=== PATIENT | female | born 1945 | race Caucasian/White ===

== ENCOUNTER 2016-08-27 08:43 | Outpatient (CLI) | payer MEDICARE, BC | END 2016-08-27 08:44 | disposition home or self-care (01) | LOC: LAB.N 08:43 | PROVIDERS: ATTEND Orthopaedic Surgery | DX: Z53.9 Procedure and treatment not carried out, unspecified reason (principal) | CPT/HCPCS: 36415; 82565; 84520; 85049; 85610; 85730 ==

== ENCOUNTER 2016-10-27 14:38 | Outpatient (CLI) | payer MEDICARE, BC | END 2016-10-27 14:39 | disposition home or self-care (01) | DX: R60.0 Localized edema (principal); I87.1 Compression of vein ==

== ENCOUNTER 2016-11-04 13:01 | Outpatient (CLI) | payer MEDICARE, BC ==
--- NOTE | 2016-11-04 16:15 | Ultrasound Report ---
RIGHT LEG VENOUS DUPLEX: 11/04/2016 CLINICAL INDICATION: Edema, dyspnea. TECHNIQUE: Real-time sonographic vascular imaging was performed by the ring sewer through the right lower extremity utilizing both color flow and Doppler spectral analysis. Multiple corporate sales representative stat ic images were saved for review. FINDINGS: A right lower extremity venous sonogram is performed revealing the common femoral, superfic ial femoral, profunda femoris, and popliteal veins to be adequately visualized without intraluminal d efects. There is normal venous compression, augmentation, phasicity, and spontaneity of venous flow. In the calf, the visualized more cephalad portions of posterior tibial and peroneal veins are grossly compressible, without filling defects. IMPRESSION: NO EVIDENCE OF DEEP VENOUS THROMBOSIS. JOB #: [id number] EXT JOB #:[id number]
== END 2016-11-04 13:02 | disposition home or self-care (01) ==
LOC: DI 13:01
PROVIDERS: ATTEND Internal Medicine
DX: R60.0 Localized edema (principal)

== ENCOUNTER 2017-02-03 16:21 | Emergency (ER) | payer MEDICARE, BC ==
[2017-02-03 16:44] VITALS: BP 103/61
--- NOTE | 2017-02-03 18:09 | ED Physician Documentation ---
PD HPI LOWER EXT INJURY - Stated complaint Stated Complaint: L KNEE PX - Chief complaint Chief Complaint: Ext Problem - History obtained from History obtained from: Patient - History of Present Illness PD HPI LOW EXT INJURY LOCATION: Other (72-year-old woman with history of right total knee replacement, 3 days ago got up from a chair and felt a pop in the medial knee and has had a lot of pain ever since which is incompletely relieved by hydrocodone, although she says later that she does not want anything stronger for pain "I would not take anything stronger for pain.") Review of Systems Constitutional: denies: Fever, Chills Skin: reports: Reviewed and negative Musculoskeletal: denies: Neck pain, Back pain PD PAST MEDICAL HISTORY - Past Medical History Cardiovascular: Hypertension, Other Respiratory: Sleep apnea, CPAP use Endocrine/Autoimmune: None GI: GERD, Hiatal hernia Psych: Depression Musculoskeletal: Osteoarthritis, Chronic back pain - Past Surgical History Past Surgical History: Yes General: Cholecystectomy, Other 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 Cardiovascular: Pacemaker - Present Medications Home Medications: Ambulatory Orders Medication Instructions Recorded Confirmed Ascorbic Acid [Vitamin C] 500 mg PO BID 11/13/12 12/16/16 Celecoxib [Celebrex] 200 mg PO DAILY 11/13/12 12/16/16 Escitalopram Oxalate [Lexapro] 20 mg PO DAILY 11/13/12 12/16/16 Lansoprazole [Prevacid] 30 mg PO BID 11/13/12 12/16/16 Losartan [Cozaar] 100 mg PO DAILY 11/13/12 12/16/16 Metoprolol Succinate [Toprol Xl] 200 mg PO DAILY 11/13/12 12/16/16 Nitroglycerin [Nitrostat] 0.3 mg SL DAILY PRN 11/13/12 12/16/16 Potassium 1,000 mg PO DAILY 11/13/12 12/16/16 Spironolactone [Aldactone] 25 mg PO DAILY 11/13/12 12/16/16 Hydroxyzine Pamoate 50 mg PO 3-4XD PRN 01/16/13 12/16/16 Mag Carb/Al Hydrox/Alginic AC 3 tbs PO DAILY PRN 01/16/13 12/16/16 [Gaviscon Extra Strength Liq] Bupropion HCl [Wellbutrin] 300 mg DAILY 01/13/14 12/16/16 Aspirin [Ecotrin] 81 mg PO DAILY 02/14/14 12/16/16 Lidocaine [Lidoderm] 1 patch TOP Q12H PRN 02/14/14 12/16/16 HYDROcodone/ACET 10/325 [[place] 10 1 - 1.5 tab PO DAILY PRN 10/31/14 12/16/16 mg/325 mg] Estradiol/Levonorgestrel [Climara 1 each TD Q7D 02/06/15 12/16/16 Pro Patch] Trazodone HCl 100 mg PO DAILY 05/08/15 12/16/16 Fexofenadine HCl [Marcella Allergy] 180 mg PO DAILY 11/06/15 12/16/16 Calcium Polycarbophil [Fiber-Caps] 1,000 mg PO BID 09/16/16 12/16/16 Ferrous Sulfate [Slow Fe] 65 mg PO DAILY 09/16/16 12/16/16 - Allergies Allergies/Adverse Reactions: Allergies Allergy/AdvReac Type Severity Reaction Status Date / Time adhesive Allergy Rash Verified 02/25/13 13:33 glycerin Allergy Itching Verified 02/25/13 13:33 - Social History Does the pt smoke?: No Smoking Status: Never smoker Does the pt drink ETOH?: No Does the pt have substance abuse?: No - Immunizations Immunizations are current?: Yes - POLST Patient has POLST: No PD ED PE NORMAL - Vitals Vital signs reviewed: Yes - General General: Alert and oriented X 3, No acute distress - Back Back: No spinal TTP - Extremities Extremities: Other (Right knee is tender over the medial joint line without deformity or warmth. She has no pain with grind testing. She does not tolerate ligamentous testing though.) - Neuro Neuro: Alert and oriented X 3, Normal speech Results - Vitals Vitals: Vital Signs - 24 hr 02/03/17 16:27 Temperature 36.6 C Heart Rate 63 Respiratory 18 Rate Blood Pressure 103/61 O2 Saturation 95 Oxygen O2 Source Room air - Rads (name of study) <L knee 4v Radiology: EMP read contemporaneously (REBECAD no frx) Departure - Departure Disposition: 01 Home, Self Care Clinical Impression: Internal derangement of left knee Condition: Good Record reviewed to determine appropriate education?: Yes Comments: Xray without fracture so safe to walk until MRi on Wednesday
--- NOTE | 2017-02-03 19:00 | XRAY Preliminary Report ---
Exam: XR Knee 4 View LT IMPRESSION: Degenerative disease of the medial compartments without fracture or joint effusion. [facility] SITE ID: [id number]
--- NOTE | 2017-02-03 19:02 | XRAY Report ---
EXAM: LEFT KNEE RADIOGRAPHY EXAM DATE: 02/03/2017 06:33 PM. CLINICAL HISTORY: Knee pain. COMPARISON: None. TECHNIQUE: 4 views. FINDINGS: Bones: No fracture or destructive bony abnormality. There is mild spurring of the medial compartment of the knee. Joints: There is mild to moderate medial compartment joint space narrowing. No joint effusion. Soft Tissues: Normal. No soft tissue swelling. IMPRESSION: Degenerative disease of the medial compartments without fracture or joint effusion. [facility] Referring Provider Line: [phone] SITE ID: [id number]
== END 2017-02-03 19:33 | disposition home or self-care (01) ==
LOC: ED 16:21
DX: S89.82XA Other specified injuries of left lower leg, initial encounter (principal); X58.XXXA Exposure to other specified factors, initial encounter; M17.12 Unilateral primary osteoarthritis, left knee; Z96.651 Presence of right artificial knee joint; Z95.0 Presence of cardiac pacemaker; I10 Essential (primary) hypertension; G47.30 Sleep apnea, unspecified; K21.9 Gastro-esophageal reflux disease without esophagitis; M19.90 Unspecified osteoarthritis, unspecified site
CPT/HCPCS: 99283

== ENCOUNTER 2017-02-06 12:59 | Outpatient (CLI) | payer MEDICARE, BC ==
--- NOTE | 2017-02-06 17:00 | MRI Report ---
EXAM: LEFT KNEE MRI WITHOUT CONTRAST EXAM DATE: 02/06/2017 02:26 p.m. CLINICAL HISTORY: Left knee pain. Prior history of leukemia. COMPARISON: Left knee radiography from 02/03/2017. TECHNIQUE: Multiplanar, multisequence T1-weighted and fluid-sensitive sequences of the knee without c ontrast. Other: None. FINDINGS: The image quality is slightly degraded due to patient-related imaging characteristics. Bones and articular cartilage: Osteophytes at the femoral condyles, tibial plateau, and patella. Grad e 3-4 chondromalacia at the medial compartment and lateral compartment. Grade 4 chondromalacia and mi ld subcortical marrow edema at the medial patellar facet. Subcortical cysts and grade 4 chondromalaci a at the medial trochlear facet. Grade 3-4 chondromalacia at the femoral trochlear groove. Medial Meniscus: Horizontal flap tear at the posterior horn. A small portion of the posterior horn is flipped inferomedially within the medial tibial recess (coronal images 18 and 19). There is also a r adial tear or degenerative free edge fraying at the midportion of the posterior horn. Lateral Meniscus: There is a radial tear at the anterior horn. There is degenerative free edge frayin g at the entire lateral meniscus. Cruciate Ligaments: The anterior and posterior cruciate ligaments are intact. Collateral Ligaments: The medial collateral and lateral collateral ligamentous structures are intact. Tendons: The quadriceps, patellar, semimembranosus, and popliteus tendons are unremarkable. Musculature: No edema or fatty atrophy. Other: There is a small joint effusion. No popliteal cyst. There is an approximately 6 x 9 x 5 mm loo se body within the posterolateral aspect of the medial joint compartment (coronal image 22, sagittal image 16, and axial image 14). The medial and lateral retinacula are intact. Subcutaneous edema at t he anterior aspect of the knee. IMPRESSION: 1. Tricompartmental osteoarthritis. 2. Horizontal flap tear at the posterior horn medial meniscus. Radial tear or degenerative free edge fraying at the midportion of the posterior horn. 3. Radial tear at the anterior horn lateral meniscus. Degenerative free edge fraying at the entire la teral meniscus. 4. Small joint effusion. 5. A 6 x 9 x 5 mm loose body within the posterolateral aspect of the medial joint compartment. [facility] MUSCULOSKELETAL RADIOLOGY SECTION Referring Provider Line: [phone] SITE ID: [id number]
== END 2017-02-06 13:00 | disposition home or self-care (01) ==
LOC: DI 12:59
PROVIDERS: ATTEND Internal Medicine
DX: M25.562 Pain in left knee (principal); M17.12 Unilateral primary osteoarthritis, left knee; S83.242A Other tear of medial meniscus, current injury, left knee, initial encounter; S83.282A Other tear of lateral meniscus, current injury, left knee, initial encounter; M25.462 Effusion, left knee

== ENCOUNTER 2017-05-28 11:03 | Outpatient (CLI) | payer MEDICARE, BC ==
[2017-05-28 11:21] LABS: CREATININE 0.8 mg/dL (0.4-1.0)
[2017-05-28] MEDS ORDERED: IOPAMIDOL-300 100 ML VIAL ONE (11:37)
[2017-05-28] MEDS ORDERED: IOPAMIDOL-300 50 ML VIAL ONE (11:37)
[2017-05-28] MEDS ORDERED: IOPAMIDOL-300 50 ML VIAL PO ONE (11:47)
[2017-05-28] MEDS ORDERED: IOPAMIDOL-300 100 ML VIAL IVP ONE (12:59)
--- NOTE | 2017-05-28 19:54 | CT Report ---
ABDOMEN AND PELVIS CT: 05/28/2017 COMPARISON EXAM: Chest CT 06/28/2014. INDICATION: Anemia and history of lymphoma. TECHNIQUE: Axial imaging of the abdomen and pelvis was performed with intravenous and oral contrast, 100 mL Isovue-300. In accordance with CT protocol optimization, one or more of the following dose reduction techniques w ere utilized for this exam: automated exposure control, adjustment of mA and/or KV based on patient size, or use of iterative reconstructive technique. FINDINGS: Limited evaluation of the lung bases is grossly unremarkable. Cholecystectomy is noted. The liver, spleen, pancreas, adrenal glands, and kidneys appear unremarkable. Hysterectomy is noted. Anterior abdominal scar. There are colon diverticula without evidence of diverticulitis. No free air or free fluid is seen in the abdomen or pelvis. No bulky adenopathy. Bilateral fat-containing inguinal hernias are noted. Lumbar hardware is noted. There are right rib fractures that appear time indeterminate. IMPRESSION: NO EVIDENCE OF MASS OR ADENOPATHY IN THE FIELD OF VIEW. RIGHT RIB FRACTURES APPEAR TIME INDETERMINATE. CORRELATE CLINICALLY. JOB #: [id number] EXT JOB #:[id number]
== END 2017-05-28 11:04 | disposition home or self-care (01) ==
LOC: LAB 11:03
PROVIDERS: ATTEND Surgery
DX: D64.9 Anemia, unspecified (principal); C85.90 Non-Hodgkin lymphoma, unspecified, unspecified site
CPT/HCPCS: 36415; 74177; 82565; Q9967

== ENCOUNTER 2017-08-03 08:00 | Outpatient (CLI) | payer MEDICARE, BC ==
[2017-08-03 19:00] LABS: BASOPHILS % (AUTO) 0.6 %; EOSINOPHILS # (AUTO) 0.3 10^3/uL (0.0-0.7); EOSINOPHILS % (AUTO) 4.2 %; HGB - HEMOGLOBIN 10.5 g/dL (12.0-16.0); LYMPHOCYTES # (AUTO) 1.4 10^3/uL (1.5-3.5); LYMPHOCYTES % (AUTO) 21.7 %; MEAN CORPUSCULAR HEMOGLOBIN 22.2 pg (27.0-31.0); MEAN CORPUSCULAR HGB CONC 30.4 g/dL (32.0-36.0); MEAN CORPUSCULAR VOLUME 73.1 fL (81.0-99.0); MEAN PLATELET VOLUME 7.6 fL (7.9-10.8); MONOCYTES # (AUTO) 0.7 10^3/uL (0.0-1.0); MONOCYTES % (AUTO) 10.5 %; NEUTROPHILS # (AUTO) 4.2 10^3/uL (1.5-6.6); PLT - PLATELET COUNT 320 10^3/uL (130-450); RED BLOOD COUNT 4.75 10^6/uL (4.20-5.40); RED CELL DISTRIBUTION WIDTH 19.1 % (12.0-15.0); WHITE BLOOD COUNT 6.7 x10^3/uL (4.8-10.8)
[2017-08-03 19:26] LABS: ALBUMIN 3.7 g/dL (3.2-5.5); ALBUMIN/GLOBULIN RATIO 1.1 (1.0-2.2); BILIRUBIN,TOTAL 0.5 mg/dL (0.2-1.0)
[2017-08-04 13:27] LABS: HEPATITIS C ANTIBODY NON-REACTIVE (NON-REACTIVE)
== END 2017-08-03 08:01 | disposition home or self-care (01) ==
LOC: LAB.N 08:00
PROVIDERS: ATTEND Internal Medicine
DX: C85.80 Other specified types of non-Hodgkin lymphoma, unspecified site (principal); I10 Essential (primary) hypertension; E66.9 Obesity, unspecified; F32.9 Major depressive disorder, single episode, unspecified; Z79.899 Other long term (current) drug therapy; Z72.89 Other problems related to lifestyle
CPT/HCPCS: 36415; 80053; 84443; 85025; 86803

== ENCOUNTER 2017-08-05 18:36 | Emergency (ER) | payer MEDICARE, BC ==
--- NOTE | 2017-08-05 20:12 | ED Physician Documentation ---
PD HPI BACK PAIN - Stated complaint Stated Complaint: BACK PX - Chief complaint Chief Complaint: Back Pain - History obtained from History obtained from: Patient - History of Present Illness Timing - onset: How many days ago (6) Timing - details: Abrupt onset, Waxing and waning Pain level max: 8 Pain level now: 4 Location: Lower, Right Quality: Pain Associated symptoms: No: Weakness, Numbness, Incontinent of urine, Unable to urinate, Incontinent of stool Improves with: Rest Worsened by: Movement (particularly with movement of RLE and, to lesser extent, movement involving lower back) Similar symptoms before: Diagnosis (chronic back pain, although this pain is not controlled by her usual PRN hydrocodone, and there is a component to the right paralumbar/parasacral region and towards the right hip which is not part of her typical chronic LBP) Recently seen: Not recently seen Review of Systems Constitutional: denies: Fever : denies: Incontinent Musculoskeletal: reports: Back pain, Pain with weight bearing. 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 Cardiovascular: Pacemaker - Present Medications Home Medications: Ambulatory Orders Medication Instructions Recorded Confirmed Celecoxib [Celebrex] 200 mg PO DAILY 11/13/12 04/28/17 Escitalopram Oxalate [Lexapro] 20 mg PO DAILY 11/13/12 04/28/17 Lansoprazole [Prevacid] 30 mg PO BID 11/13/12 04/28/17 Losartan [Cozaar] 100 mg PO DAILY 11/13/12 04/28/17 Metoprolol Succinate [Toprol Xl] 200 mg PO DAILY 11/13/12 04/28/17 Nitroglycerin [Nitrostat] 0.3 mg SL DAILY PRN 11/13/12 04/28/17 Potassium 1,000 mg PO DAILY 11/13/12 04/28/17 Spironolactone [Aldactone] 25 mg PO DAILY 11/13/12 04/28/17 Hydroxyzine Pamoate 50 mg PO 3-4XD PRN 01/16/13 04/28/17 Mag Carb/Al Hydrox/Alginic AC 3 tbs PO DAILY PRN 01/16/13 04/28/17 [Gaviscon Extra Strength Liq] Bupropion HCl [Wellbutrin] 300 mg DAILY 01/13/14 04/28/17 Aspirin [Ecotrin] 81 mg PO DAILY 02/14/14 04/28/17 Lidocaine [Lidoderm] 1 patch TOP Q12H PRN 02/14/14 04/28/17 HYDROcodone/ACET 10/325 [[place] 10 2 tab PO DAILY PRN 10/31/14 04/28/17 mg/325 mg] Trazodone HCl 100 mg PO DAILY 05/08/15 04/28/17 Fexofenadine HCl [Marcella Allergy] 180 mg PO DAILY 11/06/15 04/28/17 Calcium Polycarbophil [Fiber-Caps] 1,000 mg PO BID 09/16/16 04/28/17 Furosemide [Lasix] 40 mg PO DAILY 04/28/17 04/28/17 Furious Surfate 61 mg PO DAILY 05/25/17 Ketoconazole 15 gm TP BID 05/25/17 Lidocaine HCl [Lidocaine HCl 20 ml MM BID PRN 05/25/17 Viscous] Oxybutynin Chloride [Ditropan Xl] 10 mg PO DAILY 05/25/17 - Allergies Allergies/Adverse Reactions: Allergies Allergy/AdvReac Type Severity Reaction Status Date / Time adhesive Allergy Rash Verified 08/05/17 18:51 glycerin Allergy Itching Verified 08/05/17 18:51 - Social History Does the pt smoke?: No Smoking Status: Never smoker Does the pt drink ETOH?: No Does the pt have substance abuse?: No - Immunizations Immunizations are current?: Yes - POLST Patient has POLST: No PD ED PE NORMAL - Vitals Vital signs reviewed: Yes - General General: Alert and oriented X 3, No acute distress (NAD at rest but appears to have painful distress when standing from sitting position; she is able to stand with assistance, and can then bear weight both lower extremities without assisatnce), Well developed/nourished - Back Back: No CVA TTP, No spinal TTP - Derm Derm: Normal color, Warm and dry - Neuro Neuro: Alert and oriented X 3, No motor deficit, No sensory deficit Results - Vitals Vitals: Vital Signs - 24 hr 08/05/17 08/05/17 08/06/17 18:47 23:24 00:10 Temperature 36.0 C L Heart Rate 60 72 75 Respiratory 16 18 16 Rate Blood Pressure 104/48 L 104/55 L 103/47 L O2 Saturation 93 93 95 Oxygen O2 Source Room air - Rads (name of study) right hip xrays Radiology: Prelim report reviewed, See rad report lumbar xrays Radiology: Prelim report reviewed, See rad report CT right hip Radiology: Prelim report reviewed, See rad report PD MEDICAL DECISION MAKING - ED course Complexity details: reviewed results, re-evaluated patient, considered differential, d/w patient ED course: patient reported adequate relief of pain after 2 vicodin and 500mg naproxyn Departure - Departure Disposition: 01 Home, Self Care Clinical Impression: Back pain, Hip pain Condition: Good Instructions: ED Low Back Pain Injury Follow-Up: Raoul Cope MD [Primary Care Provider] - Discharge Date/Time: 08/06/17 00:10
[2017-08-05] MEDS ORDERED: HYDROcod/ACETAM 5/325 MG TABLET PO STA (20:25)
[2017-08-05] MEDS ORDERED: NAPROXEN 250 MG TABLET PO STA (20:25)
--- NOTE | 2017-08-05 21:42 | XRAY Report ---
EXAM: LUMBOSACRAL SPINE RADIOGRAPHY EXAM DATE: 08/05/2017 09:28 PM. CLINICAL HISTORY: Low back pain after fall. COMPARISONS: None. TECHNIQUE: 3 views. FINDINGS: Alignment: Levoscoliosis of the thoracolumbar spine Bones: Five ces-yzc-itwhher lumbar vertebral bodies are present. No fractures or bone lesions. Disks: There is right posterior fusion of L3, L4, L5 and S1 without evidence of hardware failure or l oosening. Degenerative disk disease at T12-L1, L1-L2 and L2-L3. Facets: No degenerative changes. Sacroiliac Joints: Unremarkable. Soft Tissues: Normal. The visualized bowel gas pattern is normal. IMPRESSION: 1. Posterior fusion on the right from L3-S1 without evidence of hardware failure or loosening. 2. No fracture or listhesis identified. [facility] Referring Provider Line: [phone] SITE ID: [id number]
--- NOTE | 2017-08-05 21:45 | XRAY Report ---
EXAM: RIGHT HIP AND PELVIS RADIOGRAPHY EXAM DATE: 08/05/2017 09:27 PM. HISTORY: Right low back pain/hip pain after fall. COMPARISONS: None. TECHNIQUE: 1 view of the pelvis and 1 view of the hip. FINDINGS: Bones: Normal. No fracture or bone lesion. Joints: The bilateral hip, pubis symphysis, and sacroiliac joints are preserved. Soft Tissues: Normal. No soft tissue swelling. IMPRESSION: The right femoral neck is not well-visualized on either film and a nondisplaced fracture of the right femoral neck cannot be excluded on this examination. Consider repeat imaging of the right hip in a s lightly different obliquity. [facility] Referring Provider Line: [phone] SITE ID: [id number]
--- NOTE | 2017-08-05 21:45 | XRAY Preliminary Report ---
Exam: XR HIP W/PELVIS 2-3V RT IMPRESSION: The right femoral neck is not well-visualized on either film and a nondisplaced fracture of the right femoral neck cannot be excluded on this examination. Consider repeat imaging of the right hip in a s lightly different obliquity. [facility] SITE ID: [id number]
--- NOTE | 2017-08-05 23:04 | CT Preliminary Report ---
Exam: CT LOWER EXTREMITY RIGHT W/O IMPRESSION: No acute bony abnormality. [facility] SITE ID: [id number]
--- NOTE | 2017-08-05 23:04 | CT Report ---
EXAM: RIGHT HIP CT WITHOUT CONTRAST EXAM DATE: 08/05/2017 10:40 PM. CLINICAL HISTORY: Fall, right hip pain COMPARISON: None. TECHNIQUE: Thin-section axial images were acquired of the hip without contrast. Post-processing: Raz nal and sagittal reformats. Other: None. In accordance with CT protocol optimization, one or more of the following dose reduction techniques w ere utilized for this exam: automated exposure control, adjustment of mA and/or KV based on patient s ize, or use of iterative reconstructive technique. FINDINGS: Bones: However, bones are osteopenic. This reduces exam sensitivity and specificity for detection of subtle bony lesions and/or fractures. No acute displaced fracture or definite suspicious bony lesio n. Partially visualized lower lumbar spinal fixation hardware. Joints: No dislocation. There is mild degenerative change of the right SI joint as well as the hip zhang int. Moderate to severe lower lumbar degenerative change. Soft tissues: No significant soft tissue abnormalities evident on these bone algorithm reconstructed images. Nonspecific right-sided inguinal lymph nodes, partially visualized. IMPRESSION: No acute bony abnormality. [facility] Referring Provider Line: [phone] SITE ID: [id number]
[2017-08-06 00:10] VITALS: BP 103/47
== END 2017-08-06 00:10 | disposition home or self-care (01) ==
LOC: ED 18:36
DX: M54.5 Low back pain (principal); M25.552 Pain in left hip; I10 Essential (primary) hypertension; G47.30 Sleep apnea, unspecified; K21.9 Gastro-esophageal reflux disease without esophagitis; M19.90 Unspecified osteoarthritis, unspecified site
CPT/HCPCS: 72100; 73502; 73700; 99283; A9270

== ENCOUNTER 2017-08-16 11:14 | Outpatient (CLI) | payer MEDICARE, BC ==
[2017-08-16] MEDS ORDERED: BARIUM SULFATE 397 GM ENEMA PR ONE (12:19)
[2017-08-16] MEDS ORDERED: BARIUM SULFATE 148 GM POWDER PO ONE (12:19)
--- NOTE | 2017-08-16 12:42 | XRAY Report ---
ESOPHAGRAM: 08/16/2017 CLINICAL INDICATION: Anemia, food sticking in the esophagus. FINDINGS: Esophagram was performed in the upright and prone positions. The esophagus is normal in caliber. Diffuse tertiary contractions are seen. No esophageal ulceration is appreciated. The hypopharynx appears unremarkable. There is a small sliding hiatal hernia present, which produced reflux throughout the prone portion of the examination. A 13 mm barium pill passed freely through the esophagus and into the stomach. IMPRESSION: 1. PRESBYESOPHAGUS. 2. SMALL HIATAL HERNIA, PRODUCING, REFLUX. 3. NO EVIDENCE OF ULCERATION OR FIXED ESOPHAGEAL STRICTURING. FLUOROSCOPY TIME: 1 MINUTE 22 SECONDS; 14 SPOT IMAGES OBTAINED. TD: 08/16/2017 12:41
== END 2017-08-16 11:15 | disposition home or self-care (01) ==
LOC: DI 11:14
PROVIDERS: ATTEND Internal Medicine
DX: K22.8 Other specified diseases of esophagus (principal); K44.9 Diaphragmatic hernia without obstruction or gangrene; K21.9 Gastro-esophageal reflux disease without esophagitis; D50.9 Iron deficiency anemia, unspecified
CPT/HCPCS: 74220; A9270

== ENCOUNTER 2017-11-16 15:15 | Outpatient (CLI) | payer MEDICARE, BC ==
[2017-11-16 19:16] LABS: INR 1.1 (0.8-1.2); PT - PROTHROMBIN TIME 12.8 secs (9.9-12.6)
[2017-11-16 19:31] LABS: CREATININE 0.8 mg/dL (0.4-1.0)
== END 2017-11-16 15:16 ==
LOC: LAB.N 15:15
PROVIDERS: ATTEND Orthopaedic Surgery
DX: R79.89 Other specified abnormal findings of blood chemistry (principal)
CPT/HCPCS: 36415; 82565; 84520; 85049; 85610; 85730

== ENCOUNTER 2018-08-03 15:21 | Outpatient (CLI) | payer MEDICARE, BC ==
--- NOTE | 2018-08-03 17:03 | XRAY Report ---
Reason: HEMOPTYSIS, UNSPECIFIED Procedure Date: 08/03/2018 Accession Number: [id number] / [id number] Procedure: XR - Chest 2 View X-Ray CPT Code: 64188 FULL RESULT: EXAM: CHEST RADIOGRAPHY EXAM DATE: 08/03/2018 04:06 PM. CLINICAL HISTORY: HEMOPTYSIS, UNSPECIFIED. COMPARISON: 06/28/[address] and chest x-ray 06/05/2013 TECHNIQUE: 2 views. FINDINGS: Shallow inspiratory effort. Lungs/Pleura: No focal opacities evident. No pleural effusion. No pneumothorax. Normal volumes. Mediastinum: Heart is top normal in size. Other: Extensive postsurgical changes in the spine. Surgical clips right upper quadrant. Multiple old healed right rib fractures and chronic deformity right shoulder. IMPRESSION: Negative for acute findings. If hemoptysis persists consider chest CT [facility]
== END 2018-08-03 15:22 | disposition home or self-care (01) ==
LOC: DI 15:21
PROVIDERS: ATTEND Physician Assistant Medical
DX: R04.2 Hemoptysis (principal)
CPT/HCPCS: 71046

== ENCOUNTER 2018-08-05 12:12 | Emergency (ER) | payer MEDICARE, BC ==
[2018-08-05] MEDS ORDERED: DEXAMETHASONE 10 MG/ML VIAL PO STA (13:17)
[2018-08-05] MEDS ORDERED: IPRATROPIUM/ALBUTEROL 3 ML NEB INH STA (13:17)
--- NOTE | 2018-08-05 14:50 | XRAY Report ---
Reason: dyspnea Procedure Date: 08/05/2018 Accession Number: [id number] / [id number] Procedure: XR - Chest 2 View X-Ray CPT Code: 86579 FULL RESULT: EXAM: CHEST RADIOGRAPHY EXAM DATE: 08/05/2018 02:41 PM. CLINICAL HISTORY: Dyspnea. COMPARISON: Tooth 2018 TECHNIQUE: 2 views. FINDINGS: Lungs/Pleura: No focal opacities evident. No pleural effusion. No pneumothorax. Normal volumes. Mediastinum: Heart and mediastinal contours are unremarkable. Other: Chronic right rib and shoulder deformity. Multiple surgical clips in the abdomen. Degenerative and postsurgical change in the spine. IMPRESSION: Clear lungs. No acute findings. Chronic changes as above. [facility]
--- NOTE | 2018-08-05 15:05 | ED Physician Documentation ---
PD HPI DYSPNEA - Stated complaint Stated Complaint: SOA/COUGH/SORE THROAT - Chief complaint Chief Complaint: Resp - History obtained from History obtained from: Patient - History of Present Illness Timing - onset: How many days ago (6) Timing - details: Still present Worsened by: Coughing Associated symptoms: Cough, Chest pain / discomfort (Right lower chest) Similar symptoms before: Diagnosis (History of O2-dependent COPD.) Recently seen: Clinic (Chest x-ray done 2 days ago was negative.) - Additional information Additional information: The patient is a 73-year-old female with a history of non-Hodgkin's lymphoma, left lung cancer in remission, and history of pneumonia, on supplemental oxygen at baseline, who presents with productive cough of 6 days' duration. She reports associated dyspnea and right lower chest wall pain with coughing. She denies fever, abdominal pain, nausea or vomiting. She is normally on supplemental oxygen at 2 L during the day and up to 4 L at night. Recently she has increased her daytime O2 concentration to 4 L as well. She was seen by her primary physician 2 days ago, and an outpatient chest x-ray was negative. She states that her primary physician says her lungs always sound "crappy." Review of Systems Constitutional: reports: Fatigue. denies: Fever Nose: reports: Congestion Throat: denies: Sore throat Cardiac: reports: Chest pain / pressure (Right lower chest wall.) Respiratory: reports: Dyspnea, Cough GI: denies: Abdominal Pain, Nausea, Vomiting : denies: Dysuria Skin: denies: Rash Musculoskeletal: reports: Back pain (Chronically.). denies: Extremity swelling Neurologic: reports: Generalized weakness. 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 Cardiovascular: Pacemaker - Present Medications Home Medications: Ambulatory Orders Medication Instructions Recorded Confirmed Celecoxib [Celebrex] 200 mg PO DAILY 11/13/12 02/09/18 Escitalopram Oxalate [Lexapro] 20 mg PO DAILY 11/13/12 02/09/18 Lansoprazole [Prevacid] 30 mg PO BID 11/13/12 02/09/18 Losartan [Cozaar] 100 mg PO DAILY 11/13/12 02/09/18 Metoprolol Succinate [Toprol Xl] 200 mg PO DAILY 11/13/12 02/09/18 Nitroglycerin [Nitrostat] 0.3 mg SL DAILY PRN 11/13/12 02/09/18 Potassium 1,000 mg PO DAILY 11/13/12 02/09/18 Spironolactone [Aldactone] 25 mg PO DAILY 11/13/12 02/09/18 Hydroxyzine Pamoate 50 mg PO 3-4XD PRN 01/16/13 02/09/18 Mag Carb/Al Hydrox/Alginic AC 3 tbs PO DAILY PRN 01/16/13 02/09/18 [Gaviscon Extra Strength Liq] Bupropion HCl [Wellbutrin] 300 mg DAILY 01/13/14 02/09/18 Lidocaine [Lidoderm] 1 patch TOP Q12H PRN 02/14/14 02/09/18 HYDROcodone/ACET 10/325 [[place] 10 2 tab PO DAILY PRN 10/31/14 02/09/18 mg/325 mg] Fexofenadine HCl [Amrcella Allergy] 180 mg PO DAILY 11/06/15 02/09/18 Calcium Polycarbophil [Fiber-Caps] 1,000 mg PO BID 09/16/16 02/09/18 Furosemide [Lasix] 40 mg PO DAILY 04/28/17 02/09/18 Ketoconazole 15 gm TP BID 05/25/17 02/09/18 Lidocaine HCl [Lidocaine HCl 20 ml MM BID PRN 05/25/17 02/09/18 Viscous] Oxybutynin Chloride [Ditropan Xl] 10 mg PO DAILY 05/25/17 02/09/18 Ferrous Gluconate 26 mg PO DAILY 09/01/17 02/09/18 Gabapentin 1 tab ORAL DAILY 02/09/18 02/09/18 Albuterol Sulf [Ventolin Hfa 1 - 2 puffs INH Q4HR PRN #1 inhaler 08/05/18 Inhaler] Doxycycline Monohydrate 100 mg PO BID #14 tablet 08/05/18 predniSONE [Prednisone] 40 mg PO DAILY #10 tablet 08/05/18 - Allergies Allergies/Adverse Reactions: Allergies Allergy/AdvReac Type Severity Reaction Status Date / Time adhesive Allergy Rash Verified 08/05/17 18:51 glycerin Allergy Itching Verified 08/05/18 12:30 - Social History Does the pt smoke?: No Smoking Status: Former smoker (Quit smoking in 1993.) Does the pt drink ETOH?: No Does the pt have substance abuse?: No - Immunizations Immunizations are current?: Yes - POLST Patient has POLST: No PD ED PE NORMAL - Vitals Vital signs reviewed: Yes (Low pulse oximetry of 88% on 2 L supplemental oxygen.) - General General: Alert and oriented X 3, Other (Morbidly obese, and speaks in bursts of 5 or 6 words at a time.) - HEENT HEENT: Atraumatic, Moist mucous membranes, Pharynx benign - Neck Neck: No adenopathy, No JVD - Cardiac Cardiac: RRR - Respiratory Respiratory: Other (Course breath sounds bilaterally, with expiratory wheezes and prolonged expiratory phase.) - Abdomen Abdomen: Soft, Non tender - Back Back: No CVA TTP - Derm Derm: No rash - Extremities Extremities: No calf tenderness / cord - Neuro Neuro: Alert and oriented X 3, No motor deficit, No sensory deficit Results - Vitals Vitals: Oxygen O2 Source Room air - Rads (name of study) CXR Radiology: Prelim report reviewed, EMP read contemporaneously, See rad report (Clear lungs. No acute findings. Chronic changes involving right rib and shoulder deformity.) PD MEDICAL DECISION MAKING - ED course Complexity details: reviewed old records, reviewed results, re-evaluated patient, considered differential, d/w patient ED course: The patient's presentation is most consistent with acute exacerbation of COPD, with initially low pulse oximetry. Her chest x-ray reveals chronic changes, without acute infiltrate. Her cough is productive of significant sputum, especially after nebulizer treatments. Treatment in the emergency department included administration of DuoNeb nebulizer, dexamethasone 10 mg orally, and Xopenex nebulizer. On repeat examination her lungs continued to reveal coarse breath sounds on auscultation. However she is moving air much better, and her pulse oximetry has improved to 94% on 2-1/2 L supplemental oxygen. She is being discharged with prescriptions for doxycycline, albuterol inhaler, and prednisone, 5 day course. I discussed with her the diagnosis, outpatient treatment and follow-up, as well as potentially worrisome signs or symptoms that should prompt reevaluation in the emergency department. Departure - Departure Disposition: 01 Home, Self Care Clinical Impression: COPD with acute exacerbation Dyspnea Qualifiers: Dyspnea type: shortness of breath Qualified Code(s): R06.02 - Shortness of breath Condition: Stable Instructions: ED COPD Flare Follow-Up: Jamey Shelton MD [Provider Admit Priv/Credential] - Prescriptions: Albuterol Sulf [Ventolin Hfa Inhaler] 1 - 2 puffs INH Q4HR PRN #1 inhaler PRN Reason: Shortness Of Air/Wheezing Doxycycline Monohydrate 100 mg PO BID #14 tablet predniSONE [Prednisone] 40 mg PO DAILY #10 tablet Comments: Take doxycycline twice daily as prescribed. Take prednisone daily for the next 5 days as prescribed. Use albuterol inhaler as needed for wheezing or shortness of breath. Continue your supplemental oxygen as previously prescribed. Follow-up with your primary physician within 1 week. Call to schedule an appointment. Return to the emergency department if you develop increasing difficulty breathing, or otherwise worsening symptoms Discharge Date/Time: 08/05/18 16:54
[2018-08-05] MEDS ORDERED: LEVALBUTEROL 1.25 MG/3 ML NEB INH STA (15:09)
[2018-08-05 16:54] VITALS: BP 124/76
== END 2018-08-05 16:54 | disposition home or self-care (01) ==
LOC: ED 12:12
DX: J44.1 Chronic obstructive pulmonary disease with (acute) exacerbation (principal); I10 Essential (primary) hypertension; Z85.72 Personal history of non-Hodgkin lymphomas; Z85.118 Personal history of other malignant neoplasm of bronchus and lung; Z87.891 Personal history of nicotine dependence; Z95.0 Presence of cardiac pacemaker
CPT/HCPCS: 71046; 94640; 99283

== ENCOUNTER 2018-09-10 17:08 | Observation (INO) | payer MEDICARE, BC ==
--- NOTE | 2018-09-10 17:39 | ED Physician Documentation ---
PD HPI HEAD INJURY - Stated complaint Stated Complaint: FELL HIT HEAD - Chief complaint Chief Complaint: Trauma Hd/Nk - History obtained from History obtained from: Patient, Family - History of Present Illness Mechanism of head injury: Fell (Sometime late last night or early this morning she fell or passed out in her bedroom and was down on the ground for an unknown period of time before she was aroused by family. She knows she hit her head and has a lot of neck pain. She denies chest pain or trouble breathing. She does have diarrhea today.) Review of Systems Ten Systems: 10 systems reviewed and negative Constitutional: denies: Fever, Chills Cardiac: denies: Chest pain / pressure, Palpitations Respiratory: denies: Dyspnea, Cough GI: reports: Abdominal Pain, Diarrhea. 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 - Present Medications Home Medications: Ambulatory Orders Medication Instructions Recorded Confirmed Escitalopram Oxalate [Lexapro] 20 mg PO DAILY 11/13/12 09/10/18 Lansoprazole [Prevacid] 30 mg PO BID 11/13/12 09/10/18 Losartan [Cozaar] 100 mg PO DAILY 11/13/12 09/10/18 Metoprolol Succinate [Toprol Xl] 200 mg PO DAILY 11/13/12 09/10/18 Nitroglycerin [Nitrostat] 0.3 mg SL DAILY PRN 11/13/12 09/10/18 RX: Potassium 1,000 mg PO DAILY 11/13/12 09/10/18 Spironolactone [Aldactone] 25 mg PO DAILY 11/13/12 09/10/18 Mag Carb/Al Hydrox/Alginic AC 3 tbs PO DAILY PRN 01/16/13 09/10/18 [Gaviscon Extra Strength Liq] RX: Hydroxyzine Pamoate 50 mg PO 3-4XD PRN 01/16/13 09/10/18 Bupropion HCl [Wellbutrin] 300 mg DAILY 01/13/14 09/10/18 RX: Lidocaine [Lidoderm] 1 patch TOP Q12H PRN 02/14/14 09/10/18 HYDROcodone/ACET 10/325 [[place] 10 2 tab PO DAILY PRN 10/31/14 09/10/18 mg/325 mg] Fexofenadine HCl [Marcella Allergy] 180 mg PO DAILY 11/06/15 09/10/18 Calcium Polycarbophil [Fiber-Caps] 1,000 mg PO BID 09/16/16 09/10/18 Furosemide [Lasix] 40 mg PO DAILY 04/28/17 09/10/18 Lidocaine HCl [Lidocaine HCl 20 ml MM BID PRN 05/25/17 09/10/18 Viscous] Oxybutynin Chloride [Ditropan Xl] 10 mg PO DAILY 05/25/17 09/10/18 RX: Ketoconazole 15 gm TP BID 05/25/17 09/10/18 Ferrous Gluconate 26 mg PO DAILY 09/01/17 09/10/18 Zolpidem Tartrate [Ambien Cr] 12.5 mg PO DAILY 08/31/18 09/10/18 - Allergies Allergies/Adverse Reactions: Allergies Allergy/AdvReac Type Severity Reaction Status Date / Time adhesive Allergy Rash Verified 09/10/18 17:16 glycerin Allergy Itching Verified 09/10/18 17:16 - Social History Does the pt smoke?: No Smoking Status: Former smoker (Quit smoking in 1993.) Does the pt drink ETOH?: No Does the pt have substance abuse?: No - Family History Family history: reports: Non contributory - Immunizations Immunizations are current?: Yes - POLST Patient has POLST: No PD ED PE NORMAL - Vitals Vital signs reviewed: Yes - General General: Alert and oriented X 3, No acute distress - HEENT HEENT: PERRL, EOMI, Other (There is a scrape on the mid right side of the forehead) - Neck Neck: Other (Tender to the mid to low C-spine) - Cardiac Cardiac: RRR, No murmur - Respiratory Respiratory: No respiratory distress, Clear bilaterally - Abdomen Abdomen: Normal bowel sounds, Soft, Non tender - Back Back: No CVA TTP, No spinal TTP - Derm Derm: Normal color, Warm and dry - Extremities Extremities: No edema, No calf tenderness / cord - Neuro Neuro: Alert and oriented X 3, Normal speech Eye Opening: Spontaneous Motor: Obeys Commands Verbal: Oriented GCS Score: 15 - Psych Psych: Normal mood, Normal affect Results - Vitals Vitals: Vital Signs - 24 hr 09/10/18 09/10/18 17:13 19:22 Temperature 37.0 C 36.3 C L Heart Rate 66 65 Respiratory 18 15 Rate Blood Pressure 100/62 93/65 O2 Saturation 97 95 Oxygen O2 Source Room air - EKG (time done) 1817 Rate: Rate (enter#) (68) Rhythm: NSR [place]: Normal Intervals: LBBB Compare to prior EKG: Old EKG unavailable Computer interpretation: Agree with computer - Labs Labs: Laboratory Tests 09/10/18 09/10/18 09/10/18 17:35 18:10 18:10 WBC 9.0 RBC 4.52 Hgb 13.5 Hct 41.1 MCV 90.8 MCH 29.8 MCHC 32.8 RDW 15.0 Plt Count 237 MPV 7.5 L Neut # (Auto) 6.4 Lymph # (Auto) 1.5 [place] # (Auto) 0.8 Eos # (Auto) 0.2 Baso # (Auto) 0.1 Absolute Nucleated RBC 0.01 Nucleated RBC % 0.1 Sodium 138 Potassium 3.8 Chloride 102 Carbon Dioxide 24 Anion Gap 12.0 BUN 29 H Creatinine 0.8 Estimated GFR (MDRD) 70 L Glucose 88 Calcium 9.0 Total Bilirubin 0.6 AST 30 ALT 25 Alkaline Phosphatase 95 Troponin I Total Protein 7.3 Albumin 3.8 Globulin 3.5 Albumin/Globulin Ratio 1.1 Lipase 24 Urine Color YELLOW Urine Clarity CLEAR Urine pH 6.0 Ur Specific [place] 1.015 Urine Protein NEGATIVE Urine Glucose (UA) NEGATIVE Urine Ketones NEGATIVE Urine Occult Blood NEGATIVE Urine Nitrite NEGATIVE Urine Bilirubin NEGATIVE Urine Urobilinogen 0.2 (NORMAL) Ur Leukocyte Esterase NEGATIVE Ur Microscopic Review NOT INDICATED Urine Culture Comments NOT INDICATED 09/10/18 18:10 WBC RBC Hgb Hct MCV MCH MCHC RDW Plt Count MPV Neut # (Auto) Lymph # (Auto) [place] # (Auto) Eos # (Auto) Baso # (Auto) Absolute Nucleated RBC Nucleated RBC % Sodium Potassium Chloride Carbon Dioxide Anion Gap BUN Creatinine Estimated GFR (MDRD) Glucose Calcium Total Bilirubin AST ALT Alkaline Phosphatase Troponin I < 0.04 Total Protein Albumin Globulin Albumin/Globulin Ratio Lipase Urine Color Urine Clarity Urine pH Ur Specific [place] Urine Protein Urine Glucose (UA) Urine Ketones Urine Occult Blood Urine Nitrite Urine Bilirubin Urine Urobilinogen Ur Leukocyte Esterase Ur Microscopic Review Urine Culture Comments - Rads (name of study) Ct Head and Cspine Radiology: EMP read contemporaneously (NAD) PD MEDICAL DECISION MAKING - ED course ED course: This is a 73-year-old woman who either had a syncope last night with head injury or head injury with loss of consciousness. Further history obtained, she is a history of idiopathic cardiomyopathy, last known ejection fraction was about 30% and her last echo was 10 years ago. The left bundle branch block is old per her. Given the underlying history of heart disease and the potential syncope it seems quesada to have her do prolonged observation in the hospital to monitor for arrhythmias. Departure - Departure Disposition: ED Place in Observation Clinical Impression: Concussion, Injury of head and neck, Syncope Condition: Stable
[2018-09-10 17:57] LABS: BILIRUBIN,URINE NEGATIVE (NEGATIVE); GLUCOSE, URINE (UA) NEGATIVE (NEGATIVE); KETONES,URINE (UA) NEGATIVE (NEGATIVE); LEUKOCYTE ESTERASE, URINE NEGATIVE (NEGATIVE); NITRITE,URINE NEGATIVE (NEGATIVE); OCCULT BLOOD,URINE NEGATIVE (NEGATIVE); PROTEIN,URINE NEGATIVE (NEGATIVE); UROBILINOGEN,URINE 0.2 (NORMAL) E.U./dL (NORMAL)
[2018-09-10 17:58] LABS: CLARITY,URINE CLEAR (CLEAR)
[2018-09-10 18:18] LABS: BASOPHILS # (AUTO) 0.1 10^3/uL (0.0-0.1); BASOPHILS % (AUTO) 0.7 %; EOSINOPHILS # (AUTO) 0.2 10^3/uL (0.0-0.7); HGB - HEMOGLOBIN 13.5 g/dL (12.0-16.0); LYMPHOCYTES # (AUTO) 1.5 10^3/uL (1.5-3.5); LYMPHOCYTES % (AUTO) 16.3 %; MEAN CORPUSCULAR HEMOGLOBIN 29.8 pg (27.0-31.0); MEAN CORPUSCULAR HGB CONC 32.8 g/dL (32.0-36.0); MEAN CORPUSCULAR VOLUME 90.8 fL (81.0-99.0); MEAN PLATELET VOLUME 7.5 fL (7.9-10.8); MONOCYTES # (AUTO) 0.8 10^3/uL (0.0-1.0); MONOCYTES % (AUTO) 9.4 %; NEUTROPHILS # (AUTO) 6.4 10^3/uL (1.5-6.6); NEUTROPHILS % (AUTO) 71.6 %; PLT - PLATELET COUNT 237 10^3/uL (130-450); RED BLOOD COUNT 4.52 10^6/uL (4.20-5.40)
[2018-09-10 18:35] LABS: ALBUMIN 3.8 g/dL (3.2-5.5); ALBUMIN/GLOBULIN RATIO 1.1 (1.0-2.2); BILIRUBIN,TOTAL 0.6 mg/dL (0.2-1.0); CREATININE 0.8 mg/dL (0.4-1.0); TOTAL PROTEIN 7.3 g/dL (6.7-8.2)
--- NOTE | 2018-09-10 19:01 | CT Report ---
Reason: head inj, neck pain Procedure Date: 09/10/2018 Accession Number: [id number] / [id number] Procedure: CT - CERVICAL SPINE WO CPT Code: FULL RESULT: EXAM: CT CERVICAL SPINE WITHOUT CONTRAST DATE: 09/10/2018 06:04 PM. HISTORY: Head inj, neck pain. COMPARISONS: HEAD W/O 02/25/2013 1:55 PM CERVICAL SPINE W/O 02/25/2013 2:02 PM. TECHNIQUE: Thin-section axial images were acquired of the cervical spine without contrast. Post-processing: Coronal and sagittal reformats. Other: None. In accordance with CT protocol optimization, one or more of the following dose reduction techniques were utilized for this exam: automated exposure control, adjustment of mA and/or KV based on patient size, or use of iterative reconstructive technique. FINDINGS: Detail is limited by patient body habitus. Alignment: No evidence of dislocation. Bones: No fracture or bone lesion. Interspace Levels/Facets: There is mild multilevel degenerative disease. Spinal canal: No significant abnormalities are seen. Other: No evidence of prevertebral soft tissue swelling. There is enlargement of the thyroid gland. IMPRESSION: Detail is limited by patient body habitus. Given this, there is no evidence of acute cervical spine fracture or dislocation. RADIA
--- NOTE | 2018-09-10 19:04 | CT Report ---
Reason: head inj, neck pain Procedure Date: 09/10/2018 Accession Number: [id number] / [id number] Procedure: CT - HEAD WO CPT Code: FULL RESULT: EXAM: CT HEAD EXAM DATE: 09/10/2018 06:04 PM. CLINICAL HISTORY: Head inj, neck pain. COMPARISON: HEAD W/O 02/25/2013 1:55 PM. TECHNIQUE: Multiaxial CT images were obtained from the foramen magnum to the vertex. Reformats: Sagittal and coronal. IV contrast: None. In accordance with CT protocol optimization, one or more of the following dose reduction techniques were utilized for this exam: automated exposure control, adjustment of mA and/or KV based on patient size, or use of iterative reconstructive technique. FINDINGS: Parenchyma: No intraparenchymal hemorrhage. No evidence of mass, midline shift, or CT findings of infarction. Bentley-white differentiation is distinct. Extraaxial Spaces: Normal for age. No subdural or epidural collections identified. Ventricles: Normal in size and position. Sinuses and Orbits: Imaged paranasal sinuses, orbits, and mastoids show no significant abnormality. Bones: No evidence of fracture or calvarial defect. Other: None. IMPRESSION: No acute intracranial CT abnormality. RADIA
--- NOTE | 2018-09-10 19:48 | XRAY Report ---
Reason: syncope cardiomyopathy Procedure Date: 09/10/2018 Accession Number: [id number] / [id number] Procedure: XR - Chest 1 View X-Ray CPT Code: 82523 FULL RESULT: EXAM: CHEST RADIOGRAPHY EXAM DATE: 09/10/2018 07:11 PM. CLINICAL HISTORY: Syncope cardiomyopathy. COMPARISON: CHEST 2 VIEW 08/05/2018 2:34 PM. TECHNIQUE: 1 view. FINDINGS: Lungs/Pleura: No dense consolidation. No large effusion or pneumothorax. No pulmonary edema. Mediastinum: Heart and mediastinal contours are unremarkable. Other: None. IMPRESSION: No acute radiographic pulmonary abnormalities. RADIA
--- NOTE | 2018-09-10 19:53 | HISTORY & PHYSICAL EXAMINATION ---
Chief Complaint - Chief Complaint Chief Complaint: questionable LOC with head and neck injury Stroke/TIA/Neuro Template - History Obtained From Records Reviewed: RN notes reviewed, Old records reviewed History obtained from: Patient Exam limitations: No limitations - History of Present Illness HPI Comment/Other: This is a pleasant 73 y/o with Pmhx of Non-ischemic ICM with prior EF of 30% diagnosed 10 years ago via [facility], BULL on CPAP, HTN, OA, Chronic back pain, Hiatal hernia, GERD who fell sometime late last night or early this morning she fell or passed out in her bedroom and was down on the ground for an unknown period of time before she was aroused by family. She knows she hit her head and has a lot of neck pain. She denies chest pain or trouble breathing. She does have diarrhea today. Current workup to include head CT, C-spine CT as well as labs, t roponin x1 negative. ECG Reveals a sinus rhythm at 68 bpm and a left bundle branch block no old EKG for comparison. Patient states 2 weeks of headaches prior to the fall and exacerbated after the fall with associated visual haziness. Patient complaining of neck pain secondary to fall with injury. Labs essentially normal, mag borderline low, telemetry showing ST elevattion in lead 5, while doing orthostatic vitals, pt had low oxygen saturation at each position change, oxygen increased to at least 92% after 1 minute. Pt states she wears 4L NC at night, doesn't wear CPAP. There was positive orthostatic changes from supine>sitting>standing; midodrine prn ordered. PMH/PSH - Past Medical History Cardiovascular: positive: Hypertension, Other (Non-ischemic ICM dx via [facility]) Respiratory: positive: Sleep apnea, CPAP use Neuro: positive: None Endocrine/Autoimmune: positive: None GI: positive: GERD, Hiatal hernia HANDBOOK WRITER: positive: None : positive: None HEENT: positive: None Psych: positive: Depression Musculoskeletal: positive: Osteoarthritis, Chronic back pain Derm: positive: None MRSA Hx?: Yes - Past Surgical History General: positive: Cholecystectomy, Other Ortho: positive: Other /HANDBOOK WRITER: positive: section Cardiovascular: positive: Cardiac catheterization (Non-ischemic ICM ) Social & Family Hx - Social History Does the pt smoke?: No Smoking Status: Former smoker (Quit smoking in 1993.) Does the pt drink ETOH?: No Does the pt have substance abuse?: No - POLST Patient has POLST: No Meds/Allgy - Home Medications Home Medications: Ambulatory Orders Medication Instructions Recorded Confirmed Escitalopram Oxalate [Lexapro] 20 mg PO DAILY 11/13/12 09/10/18 Lansoprazole [Prevacid] 30 mg PO BID 11/13/12 09/10/18 Losartan [Cozaar] 100 mg PO DAILY 11/13/12 09/10/18 Metoprolol Succinate [Toprol Xl] 200 mg PO DAILY 11/13/12 09/10/18 Nitroglycerin [Nitrostat] 0.3 mg SL DAILY PRN 11/13/12 09/10/18 Potassium 1,000 mg PO DAILY 11/13/12 09/10/18 Spironolactone [Aldactone] 25 mg PO DAILY 11/13/12 09/10/18 Hydroxyzine Pamoate 50 mg PO 3-4XD PRN 01/16/13 09/10/18 Mag Carb/Al Hydrox/Alginic AC 3 tbs PO DAILY PRN 01/16/13 09/10/18 [Gaviscon Extra Strength Liq] Bupropion HCl [Wellbutrin] 300 mg DAILY 01/13/14 09/10/18 Lidocaine [Lidoderm] 1 patch TOP Q12H PRN 02/14/14 09/10/18 HYDROcodone/ACET 10/325 [[place] 10 2 tab PO DAILY PRN 10/31/14 09/10/18 mg/325 mg] Fexofenadine HCl [Marcella Allergy] 180 mg PO DAILY 11/06/15 09/10/18 Calcium Polycarbophil [Fiber-Caps] 1,000 mg PO BID 09/16/16 09/10/18 Furosemide [Lasix] 40 mg PO DAILY 04/28/17 09/10/18 Ketoconazole 15 gm TP BID 05/25/17 09/10/18 Lidocaine HCl [Lidocaine HCl 20 ml MM BID PRN 05/25/17 09/10/18 Viscous] Oxybutynin Chloride [Ditropan Xl] 10 mg PO DAILY 05/25/17 09/10/18 Ferrous Gluconate 26 mg PO DAILY 09/01/17 09/10/18 Zolpidem Tartrate [Ambien Cr] 12.5 mg PO DAILY 08/31/18 09/10/18 - Allergies Allergies/Adverse Reactions: Allergies Allergy/AdvReac Type Severity Reaction Status Date / Time adhesive Allergy Rash Verified 09/10/18 17:16 glycerin Allergy Itching Verified 09/10/18 17:16 Review of Systems - All Other Systems All Other Systems: reports: Reviewed and negative Prior Level of Functionality: Patient with independent home ADL's Exam - Vital Signs Reviewed Vital Signs: Yes Vital Signs: Vital Signs x48h Temp Pulse Resp BP Pulse Ox 09/10/18 19:22 36.3 C L 65 15 93/65 95 09/10/18 17:13 37.0 C 66 18 100/62 97 - Physical Exam General Appearance: positive: No acute distress, Alert, Other (Morbidly obese. Patient has a an abrasion to the right frontal area of head) Eyes Bilateral: positive: Normal inspection, PERRL, EOMI, Conjunctivae nml ENT: positive: ENT inspection nml, Pharynx nml, No signs of dehydration Neck: positive: Nml inspection, Thyroid nml, No JVD, Trachea midline, Other (Posterior neck tenderness on deep palpation). negative: Thyromegaly Respiratory: positive: Chest non-tender, No respiratory distress, Breath sounds nml Cardiovascular: positive: Regular rate & rhythm, No murmur, No gallop Peripheral Pulses: positive: 2+ Abdomen: positive: Non-tender, No organomegaly, Nml bowel sounds, No distention. negative: Tenderness Back: positive: Nml inspection, Other (Chronic low back pain on deep palpation. Musculoskeletal: Some posterior neck tenderness as well as occipital soreness) Skin: positive: Color nml, No rash, Other (Contusion noted with abrasion to fore head) Extremities: positive: Non-tender, Full ROM, Nml appearance. negative: No pedal edema Neurologic/Psychiatric: positive: Oriented x3, CN's nml (2-12). negative: Facial droop, Slurred/abnml speech, Depressed mood/affect Results - Lab Results Lab results reviewed: Yes Fish Bones: 09/11/18 06:00 09/10/18 18:10 Other Lab Results: Lab Results x24hrs 09/10/18 09/10/18 09/10/18 Range/Units 18:10 18:10 18:10 WBC 9.0 (4.8-10.8) x10^3/uL RBC 4.52 (4.20-5.40) 10^6/uL Hgb 13.5 (12.0-16.0) g/dL Hct 41.1 (37.0-47.0) % MCV 90.8 (81.0-99.0) fL MCH 29.8 (27.0-31.0) pg MCHC 32.8 (32.0-36.0) g/dL RDW 15.0 (12.0-15.0) % Plt Count 237 (130-450) 10^3/uL MPV 7.5 L (7.9-10.8) fL Neut # (Auto) 6.4 (1.5-6.6) 10^3/uL Lymph # (Auto) 1.5 (1.5-3.5) 10^3/uL [place] # (Auto) 0.8 (0.0-1.0) 10^3/uL Eos # (Auto) 0.2 (0.0-0.7) 10^3/uL Baso # (Auto) 0.1 (0.0-0.1) 10^3/uL Absolute Nucleated RBC 0.01 x10^3/uL Nucleated RBC % 0.1 /100WBC Sodium 138 (135-145) mmol/L Potassium 3.8 (3.5-5.0) mmol/L Chloride 102 (101-111) mmol/L Carbon Dioxide 24 (21-32) mmol/L Anion Gap 12.0 (6-13) BUN 29 H (6-20) mg/dL Creatinine 0.8 (0.4-1.0) mg/dL Estimated GFR (MDRD) 70 L (>89) Glucose 88 (70-100) mg/dL Calcium 9.0 (8.5-10.3) mg/dL Total Bilirubin 0.6 (0.2-1.0) mg/dL AST 30 (10-42) IU/L ALT 25 (10-60) IU/L Alkaline Phosphatase 95 (42-121) IU/L Troponin I < 0.04 (<0.49) ng/mL Total Protein 7.3 (6.7-8.2) g/dL Albumin 3.8 (3.2-5.5) g/dL Globulin 3.5 (2.1-4.2) g/dL Albumin/Globulin Ratio 1.1 (1.0-2.2) Lipase 24 (22-51) U/L Urine Color Urine Clarity (CLEAR) Urine pH (5.0-7.5) PH Ur Specific [place] (1.002-1.030) Urine Protein (NEGATIVE) mg/dL Urine Glucose (UA) (NEGATIVE) mg/dL Urine Ketones (NEGATIVE) mg/dL Urine Occult Blood (NEGATIVE) Urine Nitrite (NEGATIVE) Urine Bilirubin (NEGATIVE) Urine Urobilinogen (NORMAL) E.U./dL Ur Leukocyte Esterase (NEGATIVE) Ur Microscopic Review Urine Culture Comments 09/10/18 Range/Units 17:35 WBC (4.8-10.8) x10^3/uL RBC (4.20-5.40) 10^6/uL Hgb (12.0-16.0) g/dL Hct (37.0-47.0) % MCV (81.0-99.0) fL MCH (27.0-31.0) pg MCHC (32.0-36.0) g/dL RDW (12.0-15.0) % Plt Count (130-450) 10^3/uL MPV (7.9-10.8) fL Neut # (Auto) (1.5-6.6) 10^3/uL Lymph # (Auto) (1.5-3.5) 10^3/uL [place] # (Auto) (0.0-1.0) 10^3/uL Eos # (Auto) (0.0-0.7) 10^3/uL Baso # (Auto) (0.0-0.1) 10^3/uL Absolute Nucleated RBC x10^3/uL Nucleated RBC % /100WBC Sodium (135-145) mmol/L Potassium (3.5-5.0) mmol/L Chloride (101-111) mmol/L Carbon Dioxide (21-32) mmol/L Anion Gap (6-13) BUN (6-20) mg/dL Creatinine (0.4-1.0) mg/dL Estimated GFR (MDRD) (>89) Glucose (70-100) mg/dL Calcium (8.5-10.3) mg/dL Total Bilirubin (0.2-1.0) mg/dL AST (10-42) IU/L ALT (10-60) IU/L Alkaline Phosphatase (42-121) IU/L Troponin I (<0.49) ng/mL Total Protein (6.7-8.2) g/dL Albumin (3.2-5.5) g/dL Globulin (2.1-4.2) g/dL Albumin/Globulin Ratio (1.0-2.2) Lipase (22-51) U/L Urine Color YELLOW Urine Clarity CLEAR (CLEAR) Urine pH 6.0 (5.0-7.5) PH Ur Specific [place] 1.015 (1.002-1.030) Urine Protein NEGATIVE (NEGATIVE) mg/dL Urine Glucose (UA) NEGATIVE (NEGATIVE) mg/dL Urine Ketones NEGATIVE (NEGATIVE) mg/dL Urine Occult Blood NEGATIVE (NEGATIVE) Urine Nitrite NEGATIVE (NEGATIVE) Urine Bilirubin NEGATIVE (NEGATIVE) Urine Urobilinogen 0.2 (NORMAL) (NORMAL) E.U./dL Ur Leukocyte Esterase NEGATIVE (NEGATIVE) Ur Microscopic Review NOT INDICATED Urine Culture Comments NOT INDICATED - Diagnostic Imaging Results Diagnostic Imaging Results: positive: Final report reviewed (CT of the C-spine unremarkable along with chest x-ray and CT of the head) - EKG Results EKG Interpreted Independently: Yes EKG Comparison: positive: Old EKG unavailable EKG Findings: Sinus rhythm at 68 bpm with a left bundle branch block Impression/Plan - Problem List Problem List: Assessment: 1. Questionable syncopal event with loss of consciousness 2. Acute head injury/neck injury with mild postconcussive syndrome 3. Suspected drug-induced orthostatic hypotension 4. Bitemporal headaches with associated visual disturbance 5. History of Non-ischemic idiopathic cardiomyopathy with a prior ejection fraction ranging between 27-33% 6. Obstructive sleep apnea previously on CPAP now on 4 L nasal cannula at nighttime 7. Morbid obesity 8. Abnormal EKG with a left bundle branch block no prior EKG for comparison 9. Chronic back pain with associated osteoarthritis 10. Hiatal hernia with GERD 11. Hypertension (currently hypotensive) 12. Advanced care planning education and counseling Plan: We will admit to observation telemetry with neuro checks every shift obtain orthostatics on lying sitting and standing. Strong suspicion of drug- induced orthostatic hypotension, (DDx: cardiac syncope or vasovagal induced syncope) placed on midodrine 10 mg p.o. 3 times daily as needed with parameters. Patient was diagnosed with a nonischemic idiopathic cardiomyopathy approximately 10 years ago via [facility]. Will obtain an echocardiogram to evaluate for valvular and or structural heart disease. Prior echo as per history in 2014 showed an ejection fraction of 30-33% I do not have a record of this in [facility]. Patient has not seen a station agent in more than 10 years and currently was told that she does not need one as per her PCP currently Dr. Jamey Shelton. BNP and TSh were unremarkable, chest x-ray does not show any pleural effusions or pulmonary edema with a CT of the head and C-spine cleared for any injuries or acute pathology. Symptomatic treatment of patient's headaches as well as posterior neck pain with Fioricet plus or minus Flexeril/toradolalong with Lidoderm patch. Will currently hold her home medications of Wellbutrin, Celexa, Lasix, Aldactone, losartan, Toprol XL for which she takes up to 200 mg worth, all would in synergistic fashion will precipitate drug-induced hypotension. Would however continue with ASA and give NTG prn. Fasting lipids and give statin if indicated. First troponin was unremarkable. Morbid obesity with likely compressive atelectasis. Continue with 4 L nasal cannula at nighttime for patient's obstructive sleep apnea for which she does not use her own CPAP which may or may not be contributing to her Non-ischemic idiopathic cardiomyopathy per history. Labs essentially normal, mag borderline low, telemetry showing ST elevattion in lead 5, while doing orthostatic vitals, pt had low oxygen saturation at each position change, oxygen increased to at least 92% after 1 minute. Pt states she wears 4L NC at night, doesn't wear CPAP. There was positive orthostatic changes from supine>sitting>standing; midodrine prn ordered. Patient's medical conditions as well as disease management and trajectory of illness was discussed in full and reviewed by patient with answers and questions thoroughly addressed. Patient will [facility] [facility], as she has an advance directive for which she will bring from her home. Initiate DVT/GI prophylaxis. CODE STATUS: DNR Core Measures - Anticipated LOS I expect patient to be DC'd or transferred within 96 hours.: Yes - Issues Hospital Issues and Management Plan: Medical mgmt, cardiac workup in progress - DVT/VTE - Prophylaxis VTE/DVT Device ordered at admit?: Yes VTE/DVT Prophylaxis med ordered at admit?: No Not Ordered - Medical Reason: Not indicated - Stroke - Rehab Assessment Rehab services assessment to be ordered?: No - AMI - Statin at Admit Aspirin Prescribed on Admit: Yes
[2018-09-10] MEDS ORDERED: HYDROcod/ACETAM 5/325 MG TABLET PO PRN ×2 (19:55→22:51)
[2018-09-10] MEDS ORDERED: SODIUM CHLORIDE FLUSH 0.9% 10 ML SYRINGE IVP PRN (19:55)
[2018-09-10] MEDS ORDERED: IBUPROFEN 600 MG TABLET PO PRN (19:55)
[2018-09-10] MEDS ORDERED: ONDANSETRON ODT 4 MG TABLET TL PRN (19:55)
[2018-09-10] MEDS ORDERED: NITROGLYCERIN SL 0.4 MG TABLET SL PRN (19:58)
[2018-09-10] MEDS ORDERED: CYCLOBENZAPRINE 10 MG TABLET PO PRN (20:03)
[2018-09-10] MEDS ORDERED: BUTALB/ACETAM/CAFF 50/325/40MG TABLET PO PRN (20:35)
[2018-09-10] MEDS ORDERED: FAMOTIDINE 20 MG TABLET PO SCH (21:00)
[2018-09-10] MEDS ORDERED: MIDODRINE 2.5 MG TABLET PO PRN (21:04)
[2018-09-10] MEDS ORDERED: KETOROLAC 15 MG/ML VIAL IVP PRN (22:51)
[2018-09-10] MEDS ORDERED: LIDOCAINE PATCH 5% TOP SCH ×2 (22:51→22:52)
[2018-09-10] MEDS: SODIUM CHLORIDE FLUSH 0.9% 10 ML SYRINGE IVP SCH (23:46)
[2018-09-10] MEDS: CYCLOBENZAPRINE 10 MG TABLET PO PRN (23:48)
[2018-09-11 06:21] LABS: BASOPHILS # (AUTO) 0.1 10^3/uL (0.0-0.1); BASOPHILS % (AUTO) 0.8 %; EOSINOPHILS # (AUTO) 0.2 10^3/uL (0.0-0.7); EOSINOPHILS % (AUTO) 3.5 %; HGB - HEMOGLOBIN 12.7 g/dL (12.0-16.0); LYMPHOCYTES # (AUTO) 2.2 10^3/uL (1.5-3.5); LYMPHOCYTES % (AUTO) 32.1 %; MEAN CORPUSCULAR HEMOGLOBIN 30.6 pg (27.0-31.0); MEAN CORPUSCULAR HGB CONC 34.4 g/dL (32.0-36.0); MEAN PLATELET VOLUME 7.1 fL (7.9-10.8); MONOCYTES # (AUTO) 0.8 10^3/uL (0.0-1.0); MONOCYTES % (AUTO) 11.9 %; NEUTROPHILS # (AUTO) 3.5 10^3/uL (1.5-6.6); NEUTROPHILS % (AUTO) 51.7 %; PLT - PLATELET COUNT 210 10^3/uL (130-450); RED BLOOD COUNT 4.16 10^6/uL (4.20-5.40); WHITE BLOOD COUNT 6.8 x10^3/uL (4.8-10.8)
[2018-09-11] MEDS ORDERED: LIDOCAINE VISCOUS 2% 100 ML BOTTLE MM PRN (06:27)
[2018-09-11 06:37] LABS: ALBUMIN 3.3 g/dL (3.2-5.5); CALCIUM 8.7 mg/dL (8.5-10.3); CREATININE 1.4 mg/dL (0.4-1.0); PHOSPHORUS 5.3 mg/dL (2.5-4.6)
[2018-09-11 06:48] LABS: CHOL/HDL RATIO 5.8 (<4.4); CHOLESTEROL 228 mg/dL; HDL CHOLESTEROL 39 mg/dL; LDL CHOLESTEROL,CALCULATED 161 mg/dL; LDL/HDL RATIO 4.1 (<4.4); VLDL CHOLESTEROL 28 mg/dL
[2018-09-11] MEDS ORDERED: SODIUM CHLORIDE 0.9% 1,000 ML IV ONE (07:28)
[2018-09-11] MEDS ORDERED: MAGNESIUM OXIDE 400 MG TABLET PO SCH (08:00)
[2018-09-11] MEDS ORDERED: FERROUS GLUCONATE 324 MG TABLET PO SCH ×2 (08:00→21:00)
[2018-09-11] MEDS ORDERED: POTASSIUM CHLORIDE 20 MEQ TABLET PO ONE (08:18)
[2018-09-11] MEDS ORDERED: ASPIRIN CHEW 81 MG TABLET PO SCH (09:00)
[2018-09-11] MEDS ORDERED: OXYBUTYNIN CHLORIDE 10 MG PO SCH (09:00)
[2018-09-11] MEDS ORDERED: LOSARTAN 50 MG TABLET PO SCH (09:00)
[2018-09-11] MEDS ORDERED: LIDOCAINE PATCH 5% TOP SCH ×2 (09:00→21:00)
[2018-09-11] MEDS ORDERED: POLYETHYLENE GLYCOL 3350 17 GM PACKET PO SCH (09:00)
[2018-09-11] MEDS ORDERED: METOPROLOL SUCCINATE 50 MG TABLET PO SCH (09:00)
[2018-09-11] MEDS: SODIUM CHLORIDE FLUSH 0.9% 10 ML SYRINGE IVP SCH (09:08)
[2018-09-11 15:03] LABS: CALCIUM 8.4 mg/dL (8.5-10.3); CREATININE 1.1 mg/dL (0.4-1.0)
[2018-09-11] MEDS: CYCLOBENZAPRINE 10 MG TABLET PO PRN (15:03)
--- NOTE | 2018-09-11 16:05 | Discharge Plan ---
Discharge Plan Disposition: Home, Self Care Condition: Poor Prescriptions: Atorvastatin [Lipitor] 40 mg PO QPM #10 tablet Metoprolol Succinate [Toprol Xl] 100 mg PO DAILY #20 tablet Diet: Regular Activity Restrictions: Activity as Tolerated Shower Restrictions: No (fall precaution, caregiver closely monitor) Instruction Topics: Syncope, Metoprolol tablets, Atorvastatin tablets Additional Instructions or Follow Up instructions: you may followup your PCP in one week, may followup your high value associate as out-pt. You were admitted for syncope. You were found to have hypotension and Bradycardia. Your Metoprolol is reduced to 100mg daily now from 200mg daily. Your ECHO reveals your EF is 35-40% now. Should your symptoms return or worsen, you may present ER, call 911 or your PCP for help. No Smoking: If you smoke, Please STOP! Call for help. Follow-up with: Jamey Shelton MD [Primary Care Provider] -
--- NOTE | 2018-09-11 16:14 | DISCHARGE SUMMARY ---
Discharge Summary Discharge Date: 09/11/18 Discharging Provider: ZARATE Primary Care Provider: Dr. Jamey Shelton Condition at Discharge: Poor Discharge Disposition: 01 Home, Self Care Discharge Facility Name: home - DIAGNOSES Admission Diagnoses: 1. syncopal event with loss of consciousness 2. Acute head injury/neck injury with mild postconcussive syndrome 3. Suspected drug-induced orthostatic hypotension 4. Bitemporal headaches with associated visual disturbance 5. History of Non-ischemic idiopathic cardiomyopathy with a prior ejection fraction ranging between 27-33% 6. Obstructive sleep apnea previously on CPAP now on 4 L nasal cannula at nighttime 7. Morbid obesity 8. Abnormal EKG with a left bundle branch block no prior EKG for comparison 9. Chronic back pain with associated osteoarthritis 10. Hiatal hernia with GERD 11. hx of Hypertension (currently hypotensive) Discharge Diagnoses with Status of Each Condition: 1. syncopal event with loss of consciousness 2. Acute head injury/neck injury with mild postconcussive syndrome 3. Suspected drug-induced orthostatic hypotension 4. Bitemporal headaches with associated visual disturbance 5. History of Non-ischemic idiopathic cardiomyopathy with a prior ejection fraction ranging between 35-40% 6. Obstructive sleep apnea previously on CPAP now on 4 L nasal cannula at [facility] ttime 7. Morbid obesity 8. Abnormal EKG with a left bundle branch block no prior EKG for comparison 9. Chronic back pain with associated osteoarthritis 10. Hiatal hernia with GERD 11. hx of Hypertension (currently hypotensive) 12. DENI - HPI History of Present Illness: refer from Dr. Alvarenga's HPI on 09/10/18 for pt as the following: This is a pleasant 73 y/o with Pmhx of Non-ischemic ICM with prior EF of 30% diagnosed 10 years ago via [facility], BULL on CPAP, HTN, OA, Chronic back pain, Hiatal hernia, GERD who fell sometime late last night or early this morning she fell or passed out in her bedroom and was down on the ground for an unknown period of time before she was aroused by family. She knows she hit her head and has a lot of neck pain. She denies chest pain or trouble breathing. She does have diarrhea today. Current workup to include head CT, C-spine CT as well as labs, troponin x1 negative. ECG Reveals a sinus rhythm at 68 bpm and a left bundle branch block no old EKG for comparison. Patient states 2 weeks of headaches prior to the fall and exacerbated after the fall with associated visual haziness. Patient complaining of neck pain secondary to fall with injury. Labs essentially normal, mag borderline low, telemetry showing ST elevattion in lead 5, while doing orthostatic vitals, pt had low oxygen saturation at each position change, oxygen increased to at least 92% after 1 minute. Pt states she wears 4L NC at night, doesn't wear CPAP. There was positive orthostatic changes from supine>sitting>standing; midodrine prn ordered. - HOSPITAL COURSE Hospital Course: 1. syncopal event with loss of consciousness pt state she feel much better. pt's ECHO reveals her EF increased from previous 27% to 35-40%. EKG reveals LBBB, Troponin is negative. we believe pt's syncope could be caused by drug-induced orthostatic hypotension. Pt's SBP is around 90. advise pt reduce her Metoprolol from 200mg daily to 100mg daily since pt also has bradycardia at HR 58, followup PCP and her spin tank tender 2. Acute head injury/neck injury with mild postconcussive syndrome resolved 3. Suspected drug-induced orthostatic hypotension pt's SBP is up around to 110-130. pt tolerate and feel much better. advise pt reduce her Metoprolol from 200mg daily to 100mg daily since pt also has bradycardia at HR 58, followup PCP and her spin tank tender 4. Bitemporal headaches with associated visual disturbance resolved 5. History of Non-ischemic idiopathic cardiomyopathy with a prior ejection fraction ranging between 35-40% New ECHO reveals pt's EF up to 35-40% from previous 27%, pt is very happy for th at. followup PCP and spin tank tender 6. Obstructive sleep apnea previously on CPAP now on 4 L nasal cannula at nighttime stable 7. Morbid obesity discuss with pt and advise pt loss of isaak 8. Abnormal EKG with a left bundle branch block no prior EKG for comparison stable, denies chest pain, SOB, troponin was negative 9. Chronic back pain with associated osteoarthritis stable 10. Hiatal hernia with GERD stable 11. hx of Hypertension (currently hypotensive) now pt's SBP is round 110-130, controlled. 12. DENI stable, return to pt's baseline - ALLERGIES Allergies/Adverse Reactions: Allergies Allergy/AdvReac Type Severity Reaction Status Date / Time adhesive Allergy Rash Verified 09/10/18 17:16 glycerin Allergy Itching Verified 09/10/18 17:16 - MEDICATIONS Home Medications: Ambulatory Orders Medication Instructions Recorded Confirmed Escitalopram Oxalate [Lexapro] 20 mg PO DAILY 11/13/12 09/10/18 Lansoprazole [Prevacid] 30 mg PO BID 11/13/12 09/10/18 Losartan [Cozaar] 100 mg PO DAILY 11/13/12 09/10/18 Nitroglycerin [Nitrostat] 0.3 mg SL DAILY PRN 11/13/12 09/10/18 Spironolactone [Aldactone] 25 mg PO DAILY 11/13/12 09/10/18 Hydroxyzine Pamoate 50 mg PO 3-4XD PRN 01/16/13 09/10/18 Mag Carb/Al Hydrox/Alginic AC 3 tbs PO DAILY PRN 01/16/13 09/10/18 [Gaviscon Extra Strength Liquid] Lidocaine [Lidoderm] 1 patch TOP Q12H PRN 02/14/14 09/10/18 HYDROcodone/ACET 10/325 [[place] 10 1 tab PO BID PRN 10/31/14 09/11/18 mg/325 mg] Fexofenadine HCl [Marcella Allergy] 180 mg PO DAILY PRN 11/06/15 09/10/18 Calcium Polycarbophil [Fiber-Caps] 1,000 mg PO BID 09/16/16 09/10/18 Furosemide [Lasix] 40 mg PO DAILY 04/28/17 09/10/18 Ketoconazole 1 applic TP BID PRN 05/25/17 09/11/18 Lidocaine HCl [Lidocaine HCl 20 ml MM BID PRN 05/25/17 09/10/18 Viscous] Oxybutynin Chloride [Ditropan Xl] 10 mg PO QPM 05/25/17 09/11/18 Ferrous Gluconate 240 mg PO QPM 09/01/17 09/11/18 Zolpidem Tartrate [Ambien Cr] 12.5 mg PO QPM 08/31/18 09/11/18 Atorvastatin [Lipitor] 40 mg PO QPM #10 tablet 09/11/18 Bran/Gum/Fib/Ct/Psyl/Kelp/Pec 3,000 mg PO QPM 03/24/19 03/24/19 [Fiber 6 Tablet] Bupropion HCl [Wellbutrin Xl] 300 mg PO DAILY 09/11/18 09/11/18 Metoprolol Succinate [Toprol Xl] 100 mg PO DAILY #20 tablet 09/11/18 Potassium Chloride 20 meq PO DAILY 09/11/18 09/11/18 traZODone [Desyrel] 50 mg PO QPM 09/11/18 09/11/18 - PHYSICAL EXAM AT DISCHARGE General Appearance: positive: No acute distress, Alert. negative: Lethargic Eyes Bilateral: positive: Normal inspection, PERRL, No lid inflammation, Conjunctivae nml ENT: positive: ENT inspection nml, Pharynx nml, No signs of dehydration. negative: Purulent nasal drainage, Pharyngeal erythema, Oral lesions Neck: positive: Nml inspection, Thyroid nml, No JVD, Trachea midline. negative: Thyromegaly, Lymphadenopathy (R), Lymphadenopathy (L), Stiff neck, Swelling/bruising, Tracheal deviation Respiratory: positive: Chest non-tender, No respiratory distress, Breath sounds nml. negative: Wheezes, Rales, Rhonchi Cardiovascular: positive: Regular rate & rhythm, No murmur, No gallop. negative: Irregularly irregular, Extrasystoles, Tachycardia, Bradycardia, JVD present, Systolic murmur, Diastolic murmur Peripheral Pulses: positive: 2+ Abdomen: positive: Non-tender, No organomegaly, Nml bowel sounds, No distention. negative: Tenderness, Guarding, Rebound Back: positive: Nml inspection. negative: CVA tenderness (R), CVA tenderness (L) Skin: positive: Color nml, No rash, Warm, Dry. negative: Cyanosis, Diaphoresis, Pallor Extremities: positive: Non-tender, Full ROM, Nml appearance. negative: Calf tenderness, Joint swelling, Devon's sign/cords Neurologic/Psychiatric: positive: Oriented x3, Motor nml, Sensation nml, Mood/affect nml. negative: Weakness, Sensory loss, Facial droop, Slurred/abnml speech, Depressed mood/affect - LABS Result Diagrams: 09/11/18 06:00 09/11/18 14:50 - FOLLOW UP Follow Up: you may followup your PCP in one week, may followup your spin tank tender as out-pt. You were admitted for syncope. You were found to have hypotension and Bradycardia. Your Metoprolol is reduced to 100mg daily now from 200mg daily. Your ECHO reveals your EF is 35-40% now. Should your symptoms return or worsen, you may present ER, call 911 or your PCP for help. - TIME SPENT Time Spent in Discharge (Minutes): 50
[2018-09-11 16:28] VITALS: BP 135/63
[2018-09-11] MEDS ORDERED: ATORVASTATIN 40 MG TABLET PO SCH (21:00)
[2018-09-12] MEDS ORDERED: PANTOPRAZOLE 40 MG TABLET PO SCH (11:00)
== END 2018-09-11 17:30 | disposition home or self-care (01) ==
LOC: ED 17:08 → OBS 19:55
PROVIDERS: ADMIT Family Medicine; ATTEND Family Medicine
DX: R55 Syncope and collapse (principal); S09.90XA Unspecified injury of head, initial encounter; S19.9XXA Unspecified injury of neck, initial encounter; W19.XXXA Unspecified fall, initial encounter; Y92.003 Bedroom of unspecified non-institutional (private) residence as the place of occurrence of the external cause; F07.81 Postconcussional syndrome; G44.89 Other headache syndrome; H53.9 Unspecified visual disturbance; G47.33 Obstructive sleep apnea (adult) (pediatric); E66.01 Morbid (severe) obesity due to excess calories; Z68.42 Body mass index [BMI] 45.0-49.9, adult; I44.7 Left bundle-branch block, unspecified; G89.29 Other chronic pain; M54.9 Dorsalgia, unspecified; M19.90 Unspecified osteoarthritis, unspecified site; K21.9 Gastro-esophageal reflux disease without esophagitis; K44.9 Diaphragmatic hernia without obstruction or gangrene; I10 Essential (primary) hypertension; I95.9 Hypotension, unspecified; N17.9 Acute kidney failure, unspecified; I42.8 Other cardiomyopathies; R19.7 Diarrhea, unspecified; F32.9 Major depressive disorder, single episode, unspecified; Z87.891 Personal history of nicotine dependence; Z79.891 Long term (current) use of opiate analgesic; Z79.899 Other long term (current) drug therapy; R40.2412 Glasgow coma scale score 13-15, at arrival to emergency department
CPT/HCPCS: 36415; 70450; 71045; 72125; 80048; 80061; 80069; 81003; 82550; 83690; 83735; 83880; 84484; 85025; 87640; 93005; 93306; 96361; 96374; 99283; 99284; A9270; G0378; 80053; 81001; 83721; 84443; 87086

== ENCOUNTER 2018-10-18 17:58 | Outpatient (CLI) | payer MEDICARE, BC ==
--- NOTE | 2018-10-19 11:31 | XRAY Report ---
Reason: RT ELBOW PAIN,AND RIGHT SHOULDER Procedure Date: 10/18/2018 Accession Number: [id number] / [id number] Procedure: XR - Elbow 3 View RT CPT Code: FULL RESULT: EXAM: RIGHT ELBOW RADIOGRAPHY EXAM DATE: 10/18/2018 06:25 PM. CLINICAL HISTORY: Right elbow pain and right shoulder. COMPARISON: None. TECHNIQUE: 3 views. FINDINGS: Bones: Normal. No fractures or bone lesions. Joints: Normal. No effusion. No subluxation. Soft Tissues: Subtle amorphous calcific density along the lateral epicondyle. IMPRESSION: Correlate focal calcific densities along the lateral epicondyle to focal point tenderness on physical examination to determine whether the patient has tendinitis, tennis elbow. RADIA
--- NOTE | 2018-10-19 13:07 | XRAY Report ---
Reason: RT ELBOW PAIN,AND RIGHT SHOULDER Procedure Date: 10/18/2018 Accession Number: [id number] / [id number] Procedure: XR - Shoulder 3 View RT CPT Code: FULL RESULT: EXAM: RIGHT SHOULDER RADIOGRAPHY EXAM DATE: 10/18/2018 06:25 PM. CLINICAL HISTORY: Right elbow and right shoulder pain. COMPARISON: SCAPULA 2 VIEW RT 08/27/2014 5:22 PM. TECHNIQUE: 3 views. FINDINGS: Bones: Sclerotic changes are seen in the coracoid and felt to be related to degenerative changes in the glenohumeral articulation. Ossific densities surrounding the joint are felt to be loose bodies. No definite fracture is detected. Joints: Advanced degenerative changes of the glenohumeral articulation without dislocation. Mild degenerative changes of the AC joint without dislocation. Soft tissues: The visualized hemithorax is unremarkable. No soft tissue swelling. IMPRESSION: Advanced degenerative changes of the glenohumeral joint. RADIA
== END 2018-10-18 17:59 | disposition home or self-care (01) ==
LOC: DI 17:58
PROVIDERS: ATTEND Physician Assistant
DX: M25.821 Other specified joint disorders, right elbow (principal); M19.011 Primary osteoarthritis, right shoulder

== ENCOUNTER 2019-08-14 13:39 | Outpatient (CLI) | payer MEDICARE, BC | END 2019-08-14 13:40 | disposition home or self-care (01) | LOC: DI 13:39 | PROVIDERS: ATTEND Internal Medicine | DX: I50.9 Heart failure, unspecified (principal) | CPT/HCPCS: 93306 ==

== ENCOUNTER 2020-05-18 11:44 | Outpatient (CLI) | payer MEDICARE, BC | END 2020-05-18 11:45 | disposition critical access hospital (66) | LOC: EMS 11:44 | PROVIDERS: ATTEND Surgery | DX: R06.02 Shortness of breath (principal); R50.9 Fever, unspecified | CPT/HCPCS: A0425; A0429 ==

== ENCOUNTER 2020-05-18 12:29 | Emergency (ER) | payer MEDICARE, BC ==
--- NOTE | 2020-05-18 12:50 | ED Physician Documentation ---
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 She has been sick now for 6 days with body aches, difficulty taking a deep breath, chills and fatigue. No clear contact with coronavirus, but had a surgical procedure on her eye about 10 days before she became symptomatic [facility]. She complains of shortness of breath and noted a sat of 88% at home but that was on room air, it came up on her supplemental oxygen. Started to feel dizzy and lightheaded today which worried her since she lives alone. Review of Systems Ten Systems: 10 systems reviewed and negative Constitutional: reports: Chills, Myalgias, Fatigue Respiratory: reports: Dyspnea, Cough GI: denies: Nausea, Vomiting, Diarrhea PD PAST MEDICAL HISTORY - Past Medical History Cardiovascular: Hypertension, Other Respiratory: Sleep apnea, CPAP use Neuro: None Endocrine/Autoimmune: None GI: GERD, Hiatal hernia [employer] DISPATCHER: None : None HEENT: None Psych: Depression Musculoskeletal: Osteoarthritis, Chronic back pain Derm: None - Past Surgical History Past Surgical History: Yes General: Cholecystectomy, Other Ortho: Other /[employer]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 Cardiovascular: Cardiac catheterization - Present Medications Home Medications: Ambulatory Orders Medication Instructions Recorded Confirmed Escitalopram Oxalate [Lexapro] 20 mg PO DAILY 11/13/12 09/10/18 Lansoprazole [Prevacid] 30 mg PO BID 11/13/12 09/10/18 Losartan [Cozaar] 100 mg PO DAILY 11/13/12 09/10/18 Nitroglycerin [Nitrostat] 0.3 mg SL DAILY PRN 11/13/12 09/10/18 Spironolactone [Aldactone] 25 mg PO DAILY 11/13/12 09/10/18 Hydroxyzine Pamoate 50 mg PO 3-4XD PRN 01/16/13 09/10/18 Mag Carb/Al Hydrox/Alginic AC 3 tbs PO DAILY PRN 01/16/13 09/10/18 [Gaviscon Extra Strength Liquid] Lidocaine [Lidoderm] 1 patch TOP Q12H PRN 02/14/14 09/10/18 HYDROcodone/ACET 10/325 [[place] 10 1 tab PO BID PRN 10/31/14 09/11/18 mg/325 mg] Fexofenadine HCl [Marcella Allergy] 180 mg PO DAILY PRN 11/06/15 09/10/18 Calcium Polycarbophil [Fiber-Caps] 1,000 mg PO BID 09/16/16 09/10/18 Furosemide [Lasix] 40 mg PO DAILY 04/28/17 09/10/18 Ketoconazole 1 applic TP BID PRN 05/25/17 09/11/18 Oxybutynin Chloride [Ditropan Xl] 10 mg PO QPM 05/25/17 09/11/18 lidocaine HCL [Lidocaine HCl 20 ml MM BID PRN 05/25/17 09/10/18 Viscous] Ferrous Gluconate 240 mg PO QPM 09/01/17 09/11/18 Zolpidem Tartrate [Ambien Cr] 12.5 mg PO QPM 08/31/18 09/11/18 Atorvastatin [Lipitor] 40 mg PO QPM #10 tablet 09/11/18 Bran/Gum/Fib/Ct/Psyl/Kelp/Pec 3,000 mg PO QPM 09/11/18 09/11/18 [Fiber 6 Tablet] Bupropion HCl [Wellbutrin Xl] 300 mg PO DAILY 09/11/18 09/11/18 Metoprolol Succinate [Toprol Xl] 100 mg PO DAILY #20 tablet 09/11/18 Potassium Chloride 20 meq PO DAILY 09/11/18 09/11/18 traZODone [Desyrel] 50 mg PO QPM 09/11/18 09/11/18 predniSONE [Deltasone] 20 mg PO [id number] #21 tab 05/18/20 - Allergies Allergies/Adverse Reactions: Allergies Allergy/AdvReac Type Severity Reaction Status Date / Time adhesive Allergy Rash Verified 05/18/20 12:35 glycerin Allergy Itching Verified 05/18/20 12:35 - Social History Does the pt smoke?: No Smoking Status: Never smoker Does the pt drink ETOH?: No Does the pt have substance abuse?: No - Immunizations Immunizations are current?: Yes - POLST Patient has POLST: No PD ED PE NORMAL - Vitals Vital signs reviewed: Yes - General General: Alert and oriented X 3, No acute distress - HEENT HEENT: PERRL, EOMI - Neck Neck: Supple, no meningeal sign, No bony TTP, No bruit - Cardiac Cardiac: RRR, No murmur - Respiratory Respiratory: No respiratory distress, Clear bilaterally - Abdomen Abdomen: Non tender - Derm Derm: No rash - Extremities Extremities: No edema, No calf tenderness / cord - Neuro Neuro: Alert and oriented X 3, Normal speech Results - Vitals Vitals: Vital Signs - 24 hr 05/18/20 05/18/20 12:35 14:38 Temperature 36.0 C L 36.5 C Heart Rate 74 77 Respiratory 22 20 Rate Blood Pressure 121/58 L 155/100 H O2 Saturation 93 99 Oxygen O2 Source Nasal cannula - Labs Labs: Laboratory Tests 05/18/20 05/18/20 05/18/20 13:05 13:13 13:13 WBC 9.6 RBC 4.51 Hgb 13.5 Hct 41.6 MCV 92.2 MCH 29.9 MCHC 32.5 RDW 12.9 Plt Count 212 MPV 9.6 Neut # (Auto) 7.3 H Lymph # (Auto) 0.8 L [place] # (Auto) 1.3 H Eos # (Auto) 0.2 Baso # (Auto) 0.1 Absolute Nucleated RBC 0.00 Nucleated RBC % 0.0 Sodium 138 Potassium 4.0 Chloride 99 L Carbon Dioxide 28 Anion Gap 11.0 BUN 21 H Creatinine 0.8 Estimated GFR (MDRD) 70 L Glucose 104 H Calcium 9.1 Total Bilirubin 0.8 AST 16 ALT 15 Alkaline Phosphatase 91 Total Protein 7.4 Albumin 3.3 Globulin 4.1 Albumin/Globulin Ratio 0.8 L Nasal Adenovirus (PCR) NOT DETECTED Nasal B. parapertussis DNA (PCR) NOT DETECTED Nasal Coronavir 229E PCR NOT DETECTED Nasal Coronavir HKU1 PCR NOT DETECTED Nasal Coronavir NL63 PCR NOT DETECTED Nasal Coronavir OC43 PCR NOT DETECTED Nasal Enterovir/Rhinovir PCR NOT DETECTED Nasal Influenza B PCR NOT DETECTED Nasal Influenza A PCR NOT DETECTED Nasal Parainfluen 1 PCR NOT DETECTED Nasal Parainfluen 2 PCR NOT DETECTED Nasal Parainfluen 3 PCR NOT DETECTED Nasal Parainfluen 4 PCR NOT DETECTED Nasal RSV (PCR) NOT DETECTED Nasal B.pertussis DNA PCR NOT DETECTED Nasal C.pneumoniae (PCR) NOT DETECTED Kimani Human Metapneumo PCR NOT DETECTED Nasal M.pneumoniae (PCR) NOT DETECTED Nasal SARS-CoV-2 (PCR) NOT DETECTED - Rads (name of study) 1v cxr Radiology: EMP read contemporaneously (NAD) PD MEDICAL DECISION MAKING - ED course ED course: 75yo woman on chronic PRN oxygen presents with some lightheadedness today along with symptoms consistent with a viral syndrome. Thankfully there is no evidence of pneumonia or coronavirus. Departure - Departure Disposition: Home, Self Care Clinical Impression: Viral syndrome Dyspnea Qualifiers: Dyspnea type: dyspnea on exertion Qualified Code(s): R06.00 - Dyspnea, unspecified Condition: Stable Record reviewed to determine appropriate education?: Yes Instructions: ED Dyspnea Shortness of Breath Follow-Up: Jamey Shelton MD [Primary Care Provider] - Prescriptions: predniSONE [Deltasone] 20 mg PO [id number] #21 tab Comments: Call your doctor to arrange a follow-up appointment, make the next available appointment. In the interim, return anytime if worse or if new symptoms develop. Discharge Date/Time: 05/18/20 15:25
--- NOTE | 2020-05-18 13:22 | XRAY Report ---
PROCEDURE: Chest 1 View X-Ray INDICATIONS: dyspnea TECHNIQUE: One view of the chest was acquired. COMPARISON: 09/10/2018 and 08/05/2018 FINDINGS: Surgical changes and devices: None. Lungs and pleura: The lungs are slightly hypoinflated and causing prominence of the bronchovascular m arkings. No focal consolidation, pneumothorax, or pleural effusions. Mediastinum: Mediastinal contours appear normal. Heart size is normal. Bones and chest wall: There are multiple remote right-sided rib fractures. Unchanged posttraumatic a ppearance of the right shoulder. Degenerative changes of the spine. No acute osseous abnormality No s uspicious bony lesions. Multiple surgical clips in the upper abdomen. IMPRESSION: No evidence of an acute cardiopulmonary abnormality. Reviewed by: Raoul Nieto DO on 05/18/2020 12:20 PM [facility] Approved by: Raoul Nieto DO on 05/18/2020 12:20 PM [facility] Station ID: [id number]
[2020-05-18 13:38] LABS: BASOPHILS # (AUTO) 0.1 10^3/uL (0.0-0.1); BASOPHILS % (AUTO) 0.5 %; EOSINOPHILS # (AUTO) 0.2 10^3/uL (0.0-0.7); EOSINOPHILS % (AUTO) 1.9 %; HGB - HEMOGLOBIN 13.5 g/dL (12.0-16.0); LYMPHOCYTES # (AUTO) 0.8 10^3/uL (1.5-3.5); LYMPHOCYTES % (AUTO) 7.9 %; MEAN CORPUSCULAR HEMOGLOBIN 29.9 pg (27.0-31.0); MEAN CORPUSCULAR HGB CONC 32.5 g/dL (32.0-36.0); MEAN CORPUSCULAR VOLUME 92.2 fL (81.0-99.0); MEAN PLATELET VOLUME 9.6 fL (7.9-10.8); MONOCYTES # (AUTO) 1.3 10^3/uL (0.0-1.0); MONOCYTES % (AUTO) 13.7 %; NEUTROPHILS # (AUTO) 7.3 10^3/uL (1.5-6.6); NEUTROPHILS % (AUTO) 75.6 %; PLT - PLATELET COUNT 212 10^3/uL (130-450); RED BLOOD COUNT 4.51 10^6/uL (4.20-5.40); RED CELL DISTRIBUTION WIDTH 12.9 % (12.0-15.0); WHITE BLOOD COUNT 9.6 x10^3/uL (4.8-10.8)
[2020-05-18 13:53] LABS: ALBUMIN 3.3 g/dL (3.2-5.5); ALBUMIN/GLOBULIN RATIO 0.8 (1.0-2.2); BILIRUBIN,TOTAL 0.8 mg/dL (0.2-1.0); CALCIUM 9.1 mg/dL (8.5-10.3); CREATININE 0.8 mg/dL (0.4-1.0); TOTAL PROTEIN 7.4 g/dL (6.7-8.2)
[2020-05-18 14:31] LABS: C. PNEUMONIAE- RESP PCR PANEL NOT DETECTED
[2020-05-18] MEDS ORDERED: predniSONE 20 MG TABLET PO STA (14:37)
[2020-05-18 14:39] VITALS: BP 155/100
== END 2020-05-18 15:25 | disposition home or self-care (01) ==
LOC: EDUNIT# → ED 12:29
DX: B34.9 Viral infection, unspecified (principal); Z20.828 Contact with and (suspected) exposure to other viral communicable diseases; R06.02 Shortness of breath; R42 Dizziness and giddiness; Z85.72 Personal history of non-Hodgkin lymphomas; Z99.81 Dependence on supplemental oxygen; I10 Essential (primary) hypertension
CPT/HCPCS: 36415; 71045; 80053; 85025; 87631; 99284; J7512; 0202U

== ENCOUNTER 2020-05-27 09:03 | Inpatient (IN) | payer MEDICARE, BC ==
[2020-05-27] MEDS ORDERED: IPRATROPIUM/ALBUTEROL 3 ML NEB INH STA (09:32)
[2020-05-27] MEDS ORDERED: methylPREDNISolone SUCCINATE 125 MG/2 ML VIAL IVP STA (09:42)
--- NOTE | 2020-05-27 09:43 | ED Physician Documentation ---
History of Present Illness - Stated complaint Stated Complaint: SOA - Chief complaint Chief Complaint: Resp - History obtained from History obtained from: Patient - History of Present Illness Timing: How many weeks ago (1) Pain level max: 3 Pain level now: 3 - Additonal information Additional information: Patient is a 75-year-old female who presents to the emergency department complaint of difficulty breathing today. This started about a week ago. Was seen here, negative Covid test. She states that she was started on prednisone, states that her oxygen requirement has gone from as needed to 3 L to now up to 6 L at home. Still desats to the 80s. Has had 3 negative Covid test. She is on prednisone. She states she has an albuterol inhaler that she uses twice per day. Mild cough. No fevers. Worse with movement, better with rest Review of Systems Ten Systems: 10 systems reviewed and negative Constitutional: denies: Fever, Chills Nose: denies: Rhinorrhea / runny nose, Congestion GI: denies: Vomiting, Diarrhea PD PAST MEDICAL HISTORY - Past Medical History Cardiovascular: Hypertension, Other Respiratory: Sleep apnea, CPAP use Neuro: None Endocrine/Autoimmune: None GI: GERD, Hiatal hernia MENTAL HEALTH ORDERLY: None : None HEENT: None Psych: Depression Musculoskeletal: Osteoarthritis, Chronic back pain Derm: None - Past Surgical History Past Surgical History: Yes General: Cholecystectomy, Other Ortho: 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 Cardiovascular: Cardiac catheterization - Present Medications Home Medications: Ambulatory Orders Medication Instructions Recorded Confirmed Escitalopram Oxalate [Lexapro] 20 mg PO DAILY 11/13/12 09/10/18 Lansoprazole [Prevacid] 30 mg PO BID 11/13/12 09/10/18 Losartan [Cozaar] 100 mg PO DAILY 11/13/12 09/10/18 Nitroglycerin [Nitrostat] 0.3 mg SL DAILY PRN 11/13/12 09/10/18 Spironolactone [Aldactone] 25 mg PO DAILY 11/13/12 09/10/18 Hydroxyzine Pamoate 50 mg PO 3-4XD PRN 01/16/13 09/10/18 Mag Carb/Al Hydrox/Alginic AC 3 tbs PO DAILY PRN 01/16/13 09/10/18 [Gaviscon Extra Strength Liquid] Lidocaine [Lidoderm] 1 patch TOP Q12H PRN 02/14/14 09/10/18 HYDROcodone/ACET 10/325 [[place] 10 1 tab PO BID PRN 10/31/14 09/11/18 mg/325 mg] Fexofenadine HCl [Marcella Allergy] 180 mg PO DAILY PRN 11/06/15 09/10/18 Calcium Polycarbophil [Fiber-Caps] 1,000 mg PO BID 09/16/16 09/10/18 Furosemide [Lasix] 40 mg PO DAILY 04/28/17 09/10/18 Ketoconazole 1 applic TP BID PRN 05/25/17 09/11/18 Oxybutynin Chloride [Ditropan Xl] 10 mg PO QPM 05/25/17 09/11/18 lidocaine HCL [Lidocaine HCl 20 ml MM BID PRN 05/25/17 09/10/18 Viscous] Ferrous Gluconate 240 mg PO QPM 09/01/17 09/11/18 Zolpidem Tartrate [Ambien Cr] 12.5 mg PO QPM 08/31/18 09/11/18 Atorvastatin [Lipitor] 40 mg PO QPM #10 tablet 09/11/18 Bran/Gum/Fib/Ct/Psyl/Kelp/Pec 3,000 mg PO QPM 09/11/18 09/11/18 [Fiber 6 Tablet] Bupropion HCl [Wellbutrin Xl] 300 mg PO DAILY 09/11/18 09/11/18 Potassium Chloride 20 meq PO DAILY 09/11/18 09/11/18 traZODone [Desyrel] 50 mg PO QPM 09/11/18 09/11/18 predniSONE [Deltasone] 20 mg PO [id number] #21 tab 05/18/20 Metoprolol Succinate [Toprol Xl] 200 mg PO DAILY 05/27/20 - Allergies Allergies/Adverse Reactions: Allergies Allergy/AdvReac Type Severity Reaction Status Date / Time adhesive Allergy Rash Verified 05/27/20 09:23 glycerin Allergy Itching Verified 05/27/20 09:23 - Social History Does the pt smoke?: No Smoking Status: Never smoker Does the pt drink ETOH?: No Does the pt have substance abuse?: No - Immunizations Immunizations are current?: Yes - POLST Patient has POLST: No PD ED PE NORMAL - Vitals Vital signs reviewed: Yes - General General: Alert and oriented X 3, Well developed/nourished (Morbidly obese female), Other (Speaking in short sentences, moderate respiratory distress) - HEENT HEENT: Moist mucous membranes, Pharynx benign - Neck Neck: Supple, no meningeal sign - Cardiac Cardiac: RRR - Respiratory Respiratory: Other (Very diminished breath sounds bilaterally, right greater than left) - Abdomen Abdomen: Soft, Non tender, Non distended - Derm Derm: Warm and dry, No rash - Extremities Extremities: No calf tenderness / cord - Neuro Neuro: Alert and oriented X 3 Results - Vitals Vitals: Vital Signs - 24 hr 05/27/20 05/27/20 05/27/20 09:04 09:52 10:00 Temperature 36.6 C Heart Rate 92 95 83 Respiratory 33 H 24 12 Rate Blood Pressure 136/111 H 102/55 L O2 Saturation 88 L 91 L 05/27/20 05/27/20 05/27/20 10:22 10:44 11:00 Temperature 36.6 C Heart Rate 95 82 75 Respiratory 25 H 24 20 Rate Blood Pressure 95/73 79/50 L 83/34 L O2 Saturation 90 L 93 92 Oxygen O2 Source Nasal cannula Oxygen Flow Rate 3 - EKG (time done) 0917 Rate: Rate (enter#) (87) Rhythm: NSR [place]: Normal Intervals: RBBB - Labs Labs: Laboratory Tests 05/27/20 05/27/20 05/27/20 10:00 10:58 10:58 WBC 32.6 H RBC 4.48 Hgb 13.2 Hct 42.2 MCV 94.2 MCH 29.5 MCHC 31.3 L RDW 14.2 Plt Count 325 MPV 10.3 Neut # (Auto) Not Reportable Lymph # (Auto) Not Reportable [place] # (Auto) Not Reportable Eos # (Auto) Not Reportable Baso # (Auto) Not Reportable Absolute Nucleated RBC Not Reportable Total Counted 100 Band Neuts % (Manual) 5 Abnorm Lymph % (Manual) 0 Metamyelocytes % 1 H Myelocytes % 1 H Nucleated RBC % Not Reportable Neutrophils # (Manual) 28.7 H Lymphocytes # (Manual) 1.3 L Monocytes # (Manual) 2.0 H Eosinophils # (Manual) 0.0 Basophils # (Manual) 0.0 Differential Comment MANUAL DIFFERENTIAL WBC Morphology 1+ VACUOLATION Platelet Estimate NORMAL (130-450,000) Platelet Morphology NORMAL APPEARANCE RBC Morph Micro Appear NORMAL APPEARANCE Sodium 137 Potassium 4.7 Chloride 101 Carbon Dioxide 25 Anion Gap 11.0 BUN 38 H Creatinine 1.3 H Estimated GFR (MDRD) 40 L Glucose 144 H Lactic Acid Calcium 9.1 Total Bilirubin 1.5 H AST 12 ALT 16 Alkaline Phosphatase 91 Troponin I High Sens 14.4 B-Natriuretic Peptide Total Protein 6.4 L Albumin 2.6 L Globulin 3.8 Albumin/Globulin Ratio 0.7 L Lipase 17 L 05/27/20 05/27/20 10:58 10:58 WBC RBC Hgb Hct MCV MCH MCHC RDW Plt Count MPV Neut # (Auto) Lymph # (Auto) [place] # (Auto) Eos # (Auto) Baso # (Auto) Absolute Nucleated RBC Total Counted Band Neuts % (Manual) Abnorm Lymph % (Manual) Metamyelocytes % Myelocytes % Nucleated RBC % Neutrophils # (Manual) Lymphocytes # (Manual) Monocytes # (Manual) Eosinophils # (Manual) Basophils # (Manual) Differential Comment WBC Morphology Platelet Estimate Platelet Morphology RBC Morph Micro Appear Sodium Potassium Chloride Carbon Dioxide Anion Gap BUN Creatinine Estimated GFR (MDRD) Glucose Lactic Acid 1.5 Calcium Total Bilirubin AST ALT Alkaline Phosphatase Troponin I High Sens B-Natriuretic Peptide 321 H Total Protein Albumin Globulin Albumin/Globulin Ratio Lipase - Rads (name of study) CXR Radiology: Prelim report reviewed, EMP read contemporaneously PD MEDICAL DECISION MAKING - ED course Complexity details: reviewed results, re-evaluated patient, considered differential, d/w patient ED course: Patient with what appears to be a pneumonia of the right lung. Her x-ray was clear 1 week ago. Given IV antibiotics. IV fluids given. Patient is on 6 L of O2. Discussed the case with Dr. Adkins and will admit. This document was made in part using voice recognition software. While efforts are made to proofread this document, sound alike and grammatical errors may occur. IMPRESSION: Finding is suggestive of moderate to large right pleural effusion and likely underlying right-sided infiltrate/mass. Follow-up until resolution is recommended. No gross pneumothorax. Left lung is clear. Departure - Departure Disposition: 66 [facility] DC/Xfer Clinical Impression: Hypoxia, COPD with acute exacerbation Pneumonia Qualifiers: Pneumonia type: due to unspecified organism Laterality: right Lung location: unspecified part of lung Qualified Code(s): J18.9 - Pneumonia, unspecified organism Condition: Serious Discharge Date/Time: 05/27/20 12:15
[2020-05-27 10:10] LABS: BASOPHILS % (AUTO) 0.1 %; EOSINOPHILS % (AUTO) 0.4 %; HGB - HEMOGLOBIN 13.2 g/dL (12.0-16.0); LYMPHOCYTES % (AUTO) 3.3 %; MEAN CORPUSCULAR HEMOGLOBIN 29.5 pg (27.0-31.0); MEAN CORPUSCULAR HGB CONC 31.3 g/dL (32.0-36.0); MEAN CORPUSCULAR VOLUME 94.2 fL (81.0-99.0); MEAN PLATELET VOLUME 10.3 fL (7.9-10.8); NEUTROPHILS % (AUTO) 87.1 %; PLT - PLATELET COUNT 325 10^3/uL (130-450); RED BLOOD COUNT 4.48 10^6/uL (4.20-5.40); RED CELL DISTRIBUTION WIDTH 14.2 % (12.0-15.0); WHITE BLOOD COUNT 32.6 x10^3/uL (4.8-10.8)
[2020-05-27 10:22] LABS: ABNORMAL LYMPHS % (MANUAL) 0 %
[2020-05-27 10:36] LABS: BAND NEUTROPHILS % (MANUAL) 5 %; LYMPHOCYTES # (MANUAL) 1.3 10^3/uL (1.5-3.5); LYMPHOCYTES % (MANUAL) 4 %; METAMYELOCYTES % (MANUAL) 1 %; MYELOCYTES % (MANUAL) 1 %
[2020-05-27 10:37] LABS: DIFFERENTIAL COMMENT MANUAL DIFFERENTIAL; PLATELET ESTIMATE, MANUAL NORMAL (130-450,000) (NORMAL); PLATELET MORPHOLOGY NORMAL APPEARANCE (NORMAL); RBC MORPHOLOGY (MULTIPLE) NORMAL APPEARANCE (NORMAL)
[2020-05-27] MEDS ORDERED: AZITHROMYCIN INJ 500 MG in SODIUM CHLORIDE 0.9% 250 ML IV STA (10:37)
[2020-05-27] MEDS ORDERED: cefTRIAXone 1 GM VIAL IVP STA (10:37)
[2020-05-27] MEDS ORDERED: SODIUM CHLORIDE 0.9% 1,000 ML IV STA ×2 (10:37)
--- NOTE | 2020-05-27 10:52 | XRAY Report ---
PROCEDURE: Chest 1 View X-Ray INDICATIONS: cough, hypoxia TECHNIQUE: One view of the chest was acquired. COMPARISON: 05/18/2020 FINDINGS: Surgical changes and devices: None. Lungs and pleura: There is interval near complete opacification of right hemithorax suggestive of mod erate to large right pleural effusion and right lung atelectasis. Underlying right-sided infiltrates cannot be excluded. Left lung is clear. No gross pneumothorax. Mediastinum: Mediastinal contours appear normal. Heart size is enlarged. Bones and chest wall: No suspicious bony lesions. Overlying soft tissues appear unremarkable. IMPRESSION: Finding is suggestive of moderate to large right pleural effusion and likely underlying right-sided i nfiltrate/mass. Follow-up until resolution is recommended. No gross pneumothorax. Left lung is clear. Reviewed by: Ashu Leija MD on 05/27/2020 9:50 AM [facility] Approved by: Ashu Leija MD on 05/27/2020 9:50 AM [facility] Station ID: [id number]
[2020-05-27 11:21] LABS: ALBUMIN 2.6 g/dL (3.2-5.5); ALBUMIN/GLOBULIN RATIO 0.7 (1.0-2.2); BILIRUBIN,TOTAL 1.5 mg/dL (0.2-1.0); CALCIUM 9.1 mg/dL (8.5-10.3); CREATININE 1.3 mg/dL (0.4-1.0); TOTAL PROTEIN 6.4 g/dL (6.7-8.2)
[2020-05-27] MEDS ORDERED: ACETAMINOPHEN 325 MG TABLET PO PRN (11:21)
[2020-05-27] MEDS ORDERED: ONDANSETRON 4 MG/2 ML VIAL IVP PRN (11:21)
[2020-05-27 12:23] LABS: INR 1.6 (0.8-1.2); PT - PROTHROMBIN TIME 17.3 secs (9.9-12.6)
[2020-05-27 12:36] LABS: C. PNEUMONIAE- RESP PCR PANEL NOT DETECTED
[2020-05-27] MEDS: DEXTROSE 5%-0.9% NACL 1,000 ML IV SCH (13:03)
[2020-05-27] MEDS ORDERED: ALBUTEROL NEB 2.5 MG/3 ML INH PRN (13:37)
[2020-05-27] MEDS ORDERED: ALBUTEROL NEB 2.5 MG/3 ML INH SCH (13:38)
[2020-05-27 14:18] LABS: ABG HCO3 28.8 mmol/L (22.0-26.0); ABG PCO2 51 mmHg (34-45); ABG PH 7.36 (7.35-7.45); ALLEN TEST POSITIVE
[2020-05-27 14:21] LABS: ABG OXYGEN SATURATION 87 % (94-98); ABG PO2 55 mmHg (80-100)
[2020-05-27] MEDS: MORPHINE 2 MG/ML CARPUJECT IVP PRN ×2 (14:45→21:58)
[2020-05-27] MEDS ORDERED: IPRATROPIUM 0.2 MG/ML NEB INH SCH (15:00)
--- NOTE | 2020-05-27 15:30 | HISTORY & PHYSICAL EXAMINATION ---
DATE OF SERVICE: 05/27/2020 Physician: Berta Adkins MD HISTORY OF PRESENT ILLNESS: This is a 75-year-old white female with a history of Ideopathic cardiomyopathy, COPD, ordered to use oxygen at home only p.r.n. She also has a history of sleep apnea, on CPAP remotely, osteoarthritis, depression, GERD, and hiatal hernia. The patient developed shortness of breath 1 week ago and was seen in the ER, had a negative COVID test, the impression was that she had a viral illness and she was discharged to take Prednisone. On her own, she needed to increased her p.r.n. oxygen use from 3 liters as needed now up to 6 liters a day 11/01. She was so short of breath that she presented back to the Emergency Room today. She was desaturating in the 80s she reported. She was taking her meds as prescribed, her Albuterol inhaler and her steroids. She complained of a cough, she endorses wheezing and orthopnea, and dyspnea on exertion. There has been no fever. She denies GI symptoms. She has had several COVID tests because of this presentation over the last 1 week and they have all been negative. PAST MEDICAL HISTORY: Ideopathic cardiomyopathy (stable and no longer sees a [employer]), hypertension, sleep apnea (was on CPAP but not for 18 years), GERD, DJD, depression, COPD on p.r.n. home oxygen. ALLERGIES: ADHESIVE TAPE AND GLYCERIN. MEDICATIONS 1. Lipitor 40 mg every night. 2. Wellbutrin 300 mg daily. 3. Lexapro 20 mg daily. 4. Iron 240 mg every night. 5. Marcella p.r.n. 6. Lasix 40 mg daily. 7. [place] 10/325 mg b.i.d. p.r.n. pain. 8. Hydroxyzine p.r.n. 9. Topical ketoconazole cream p.r.n. 10. Prevacid 30 mg b.i.d. 11. Topical Lidocaine patch p.r.n. 12. Losartan 100 mg daily. 13. Multivitamin and supplements daily. 14. Metoprolol succinate 100 mg daily. 15. Sublingual nitroglycerin p.r.n. 16. Oxybutynin 10 mg every night. 17. Potassium chloride 20 mEq daily. 18. Prednisone 20 mg daily with a taper ordered that was started 7 days ago, it was to taper to off over 10 days. 19. Spironolactone 25 mg daily. 20. Desyrel 50 mg every night. 21. Ambien p.r.n. every night. REVIEW OF SYSTEMS: A comprehensive review of systems was performed and the pertinent positives are listed, the rest are negative. FAMILY HISTORY: No inherited diseases. SOCIAL HISTORY: She is a nonsmoker who never smoked, there is no alcohol abuse history, no illicit drug use. PHYSICAL EXAM GENERAL: White female, who appears older than her age. She is obese and in moderate respiratory distress. VITAL SIGNS: Blood pressure 107/64, heart rate 77-80 in sinus rhythm, afebrile. Room air saturation was 80% and on oxygen 3 liters nasal cannula, it increased to 91% and 94%. HEENT: Reveals dry oral mucosa and she is wearing nasal cannula supplemental oxygen. NECK: Positive JVD in a vertical position. CHEST: Scattered wheezes posteriorly, prolonged expiratory phase. HEART: Normal S1, S2, and no murmur. ABDOMEN: Soft, nontender. EXTREMITIES: No clubbing, cyanosis or edema. NEUROLOGIC: Grossly intact. LABORATORY DATA: Normal electrolytes. BUN is 38, creatinine 1.3. Her baseline creatinine is normal. Lactic acid 1.5. BNP 321. Troponin 14. Lipase normal at 17. White blood count elevated at 32.6. When she was here in the ER a week ago, it was normal; however, she has been on prednisone for 7 days. Hemoglobin 13, platelet count normal at 325. INR elevated at 1.6. A [employer] viral screen was done and she is negative for COVID again today. CHEST X-RAY: [id number] right pleural effusion and a likely underlying right-sided infiltrate, a mass could be possible as well. The left lung is clear. The heart size is enlarged. EKG: Normal sinus rhythm, left bundle-branch block. IMPRESSION/DIAGNOSES 1. Hypotension. 2. Acute respiratory failure with hypoxia. 3. Chronic obstructive pulmonary disease with exacerbation. 4. Community-acquired pneumonia. 5. History of cardiomyopathy and left bundle branch block. 6. Acute kidney injury. PLAN: Admit the patient to the ICU. We will give low dose of fluid hydration because of the hypotension, watching for CHF. Obtain an Echo to reevaluate LV and RV contractility and PA pressures. Begin IV steroids, nebulizers scheduled and p.r.n., begin Mucinex and add Singulair. Begin IV antibiotics with Zithromax and Ceftriaxone for community acquired pneumonia. Obtain a sputum culture if she can make it, blood cultures were done in the ER. Obtain an ABG, given her moderate distress. Non-invasive ventilator required to reduce hospitalization and improve patient health. BiPAP considered and deemed ineffective. I am ordering an non-invasive ventilator to treat her chronic respiratory failure and obesity hypoventilation syndrome. Recheck a CXR tomorrow and consider a thoracentesis. Continue with her psych medications. Hold the blood pressure medication given her "soft" blood pressure. DEEP VENOUS THROMBOSIS PROPHYLAXIS: Pharmacotherapy. CODE STATUS: FULL CODE. ATTESTATION: The patient is expected to be discharged or transferred to another facility within 96 hours: Yes. cc: Jamey Shelton MD TD: 05/27/2020 14:25 MTDD
[2020-05-27] MEDS: methylPREDNISolone SUCCINATE 40 MG/ML VIAL IVP SCH ×2 (16:40→22:04)
[2020-05-27] MEDS: SODIUM CHLORIDE FLUSH 0.9% 10 ML SYRINGE IVP SCH ×2 (16:41→21:58)
--- NOTE | 2020-05-27 17:25 | PHARMACY PROGRESS NOTE ---
- Best Possible Medication History Admit Date and Time: 05/27/20 1121 Processed by: Pharmacy Medication History completed: Yes Patient Interview: Completed Secondary Source(s): Other family member, Pharmacy records, Insurance records As the person ultimately responsible for medication therapy, providers are able to order a medication from an existing home medication list in [facility] via the "Reconcile Routine" prior to Confirmation of that medication by legal support manager. Such practice is discouraged except when the physician, in their clinical judgment, deems that a medical need exists for a medication without regard to previous use.
[2020-05-27] MEDS: IPRATROPIUM/ALBUTEROL 3 ML NEB INH SCH (18:14)
[2020-05-27] MEDS: FAMOTIDINE 20 MG TABLET PO SCH (20:46)
[2020-05-27] MEDS: MONTELUKAST 10 MG TABLET PO SCH (20:46)
[2020-05-27] MEDS: guaiFENesin 600 MG TABLET PO SCH (20:46)
[2020-05-27] MEDS: OXYBUTYNIN 5MG TABLET PO SCH (21:57)
[2020-05-27] MEDS: FERROUS SULFATE 325 MG TABLET PO SCH (21:57)
[2020-05-27] MEDS: hydrOXYzine PAMOATE 25 MG CAPSULE PO PRN (23:50)
[2020-05-27] MEDS: HYDROcod/ACETAM 10 MG/325 MG TABLET PO PRN (23:50)
[2020-05-27] MEDS: BENZONATATE 100 MG CAPSULE PO PRN (23:51)
[2020-05-28] MEDS: DEXTROSE 5%-0.9% NACL 1,000 ML IV SCH (04:15)
[2020-05-28] MEDS: MORPHINE 2 MG/ML CARPUJECT IVP PRN ×2 (04:15→20:45)
[2020-05-28] MEDS: SODIUM CHLORIDE FLUSH 0.9% 10 ML SYRINGE IVP PRN ×3 (04:16→22:23)
[2020-05-28 04:57] LABS: EOSINOPHILS % (AUTO) 0.5 %; HGB - HEMOGLOBIN 12.7 g/dL (12.0-16.0); LYMPHOCYTES % (AUTO) 2.5 %; MEAN CORPUSCULAR HEMOGLOBIN 29.5 pg (27.0-31.0); MEAN CORPUSCULAR HGB CONC 30.8 g/dL (32.0-36.0); MEAN PLATELET VOLUME 10.3 fL (7.9-10.8); MONOCYTES % (AUTO) 4.3 %; NEUTROPHILS % (AUTO) 89.2 %; PLT - PLATELET COUNT 347 10^3/uL (130-450); RED CELL DISTRIBUTION WIDTH 14.5 % (12.0-15.0)
[2020-05-28 05:08] LABS: CALCIUM 9.5 mg/dL (8.5-10.3); MAGNESIUM 2.1 mg/dL (1.7-2.8); PHOSPHORUS 3.3 mg/dL (2.5-4.6)
[2020-05-28 05:09] LABS: ABNORMAL LYMPHS % (MANUAL) 0 %
[2020-05-28 05:40] LABS: BAND NEUTROPHILS % (MANUAL) 5 %; LYMPHOCYTES # (MANUAL) 0.4 10^3/uL (1.5-3.5); LYMPHOCYTES % (MANUAL) 1 %; MONOCYTES # (MANUAL) 2.9 10^3/uL (0.0-1.0)
[2020-05-28 05:41] LABS: DIFFERENTIAL COMMENT MANUAL DIFFERENTIAL; PLATELET ESTIMATE, MANUAL NORMAL (130-450,000) (NORMAL); PLATELET MORPHOLOGY NORMAL APPEARANCE (NORMAL); RBC MORPHOLOGY (MULTIPLE) NORMAL APPEARANCE (NORMAL)
[2020-05-28] MEDS: methylPREDNISolone SUCCINATE 40 MG/ML VIAL IVP SCH ×3 (05:44→22:23)
[2020-05-28] MEDS: IPRATROPIUM/ALBUTEROL 3 ML NEB INH SCH ×4 (07:18→19:57)
[2020-05-28] MEDS: PANTOPRAZOLE 40 MG TABLET PO SCH (07:18)
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
[2020-05-28] MEDS: AZITHROMYCIN INJ 500 MG in SODIUM CHLORIDE 0.9% 250 ML IV SCH (09:01)
[2020-05-28] MEDS: OXYBUTYNIN 5MG TABLET PO SCH (09:01)
[2020-05-28] MEDS: guaiFENesin 600 MG TABLET PO SCH ×2 (09:01→20:45)
[2020-05-28] MEDS: cefTRIAXone 1 GM in SODIUM CHLORIDE 0.9% MINIBAG 100 ML IV SCH (09:06)
[2020-05-28] MEDS: HYDROcod/ACETAM 10 MG/325 MG TABLET PO PRN (09:25)
[2020-05-28] MEDS: SODIUM CHLORIDE FLUSH 0.9% 10 ML SYRINGE IVP SCH ×3 (09:25→20:46)
[2020-05-28] MEDS: FERROUS SULFATE 325 MG TABLET PO SCH (09:26)
[2020-05-28] MEDS: FAMOTIDINE 20 MG TABLET PO SCH ×2 (09:26→20:45)
[2020-05-28 09:36] LABS: INR 1.4 (0.8-1.2); PT - PROTHROMBIN TIME 15.7 secs (9.9-12.6)
[2020-05-28] MEDS: polyethylene glycoL 3350 17 GM PACKET PO SCH (11:11)
[2020-05-28] MEDS: SENNA 8.6 MG TABLET PO SCH (11:12)
[2020-05-28] MEDS: DOCUSATE SODIUM 250 MG CAPSULE PO SCH (11:12)
[2020-05-28] MEDS ORDERED: HYDROcod/ACETAM 10 MG/325 MG TABLET PO PRN (14:42)
[2020-05-28] MEDS ORDERED: FEXOFENADINE 60 MG TABLET PO PRN (14:47)
--- NOTE | 2020-05-28 14:56 | ANESTHESIA PROCEDURE NOTE ---
Anesth Central Line Template - Central Line Central Line Preparation: Consent Obtained, Time out completed, Ultrasound used, Sterile prep and drape Central line location: Right Brachial Central line type: PICC Double Lumen Central line catheter tip site resides: Superior vena cava (SVC) Central line aftercare: Secured, Placement confirmed, No pneumothorax, No complications, Bundle checklist complete, Pt tolerated well, Other Other Info/Details: Pt ID'd and consent after discussion about PICC vs CVL. Pt appears to not be able to tolerate lying supine or Tberg and confirms the same by stating she is increasingly short of breath. 10L O2 needed to keep SAT>90. Procedure explained. R UE prepped and draped. Gown, gloves, mask. R brachial v. accessed with US attempt x2. Wire threaded easily. Dilator after line cut to 40cm according to height chart. Wire out, cath threaded easily. Unable to track tip d/t backordered equipment. Caps easily aspirate and flush x2. Secured with stat l ock and occlusive dressing. Pt tolerated procedure without complaint ot complication. PCXR to bedside at conclusion of placement. PICC tip appears in SVC but will await radiology read/report.
--- NOTE | 2020-05-28 15:17 | Ultrasound Report ---
PROCEDURE: Chest INDICATIONS: LARGE RT EFFUSION ON CXR AND HYPOXIC TECHNIQUE: Real-time scanning was performed, and a suitable site was marked by the curriculum development specialist for thoracentesis to be performed by the referring clinician. COMPARISON: None. FINDINGS: There is a pleural effusion noted in the right hemithorax. This effusion is very echogenic with no si gnificant hypoechoic or anechoic portion. The effusion is presumably highly loculated with presumed p roteinaceous and/or cellular components. The effusion cannot be delineated from the adjacent lung. Ov erall the perfusion is only moderate in size. IMPRESSION: Poor visualization of right pleural effusion due to patient body habitus and the echogenic loculated nature of the effusion. CT of the chest with IV contrast is recommended. This is not considered an ef fusion which is amenable to percutaneous drainage at this time, on the basis of hyaline loculated and echogenic imaging appearance. Large bore chest tube drainage could be considered pending the CT resu lts. Reviewed by: Patrick Vargas MD on 05/28/2020 3:16 PM PST Approved by: Patrick Vargas MD on 05/28/2020 3:16 PM PST Station ID: [id number]
--- NOTE | 2020-05-28 15:29 | XRAY Report ---
PROCEDURE: Chest for Line Placement INDICATIONS: PICC placement TECHNIQUE: One view of the chest was acquired. COMPARISON: 05/27/2020 FINDINGS: Surgical changes and devices: Tip of a right upper extremity PICC terminates near the junction of the subclavian and brachiocephalic veins. Enhancement could be considered. Lungs and pleura: Complete opacification of the right hemithorax, which upon comparison with the ches t ultrasound images obtained today, is reflective of a moderate loculated pleural effusion and dense airspace consolidation. Mediastinum: Mediastinal contours appear normal. Heart size is normal. Bones and chest wall: No suspicious bony lesions. Overlying soft tissues appear unremarkable. IMPRESSION: Consider advancement of right upper extremity PICC, currently with distal tip projecting in the regio n of the medial subclavian or brachiocephalic veins with position not definitively in the SVC. CT chest recommended for further evaluate a seemingly loculated right pleural effusion and dense cons olidation, presumably pneumonia. Reviewed by: Patrick Vargas MD on 05/28/2020 3:28 PM PST Approved by: Patrick Vargas MD on 05/28/2020 3:28 PM PST Station ID: [id number]
[2020-05-28] MEDS: INSULIN ASPART 300 UNIT/3 ML PEN SUBQ SCH ×2 (17:09→20:45)
[2020-05-28] MEDS: BENZONATATE 100 MG CAPSULE PO PRN (17:48)
[2020-05-28] MEDS: MONTELUKAST 10 MG TABLET PO SCH (20:45)
[2020-05-28] MEDS ORDERED: OXYBUTYNIN CHLORIDE 10 MG PO SCH (21:00)
[2020-05-28] MEDS: hydrOXYzine PAMOATE 25 MG CAPSULE PO PRN (23:41)
[2020-05-29] MEDS: MORPHINE 2 MG/ML CARPUJECT IVP PRN ×2 (04:07→13:10)
[2020-05-29] MEDS: SODIUM CHLORIDE FLUSH 0.9% 10 ML SYRINGE IVP PRN ×3 (04:07→05:38)
[2020-05-29 04:35] LABS: BASOPHILS % (AUTO) 0.5 %; EOSINOPHILS % (AUTO) 0.3 %; HGB - HEMOGLOBIN 11.9 g/dL (12.0-16.0); LYMPHOCYTES % (AUTO) 2.5 %; MEAN CORPUSCULAR HGB CONC 31.2 g/dL (32.0-36.0); MEAN PLATELET VOLUME 9.4 fL (7.9-10.8); MONOCYTES % (AUTO) 3.9 %; NEUTROPHILS % (AUTO) 88.9 %; PLT - PLATELET COUNT 360 10^3/uL (130-450); RED BLOOD COUNT 3.97 10^6/uL (4.20-5.40); RED CELL DISTRIBUTION WIDTH 14.3 % (12.0-15.0)
[2020-05-29 04:41] LABS: WHITE BLOOD COUNT 39.6 x10^3/uL (4.8-10.8)
[2020-05-29 04:42] LABS: ABNORMAL LYMPHS % (MANUAL) 0 %
[2020-05-29 05:03] LABS: CALCIUM 9.3 mg/dL (8.5-10.3); CREATININE 0.8 mg/dL (0.4-1.0); MAGNESIUM 2.2 mg/dL (1.7-2.8); PHOSPHORUS 3.3 mg/dL (2.5-4.6)
[2020-05-29 05:16] LABS: BAND NEUTROPHILS % (MANUAL) 32 %; LYMPHOCYTES # (MANUAL) 1.2 10^3/uL (1.5-3.5); LYMPHOCYTES % (MANUAL) 3 %; MONOCYTES # (MANUAL) 2.4 10^3/uL (0.0-1.0); PLATELET ESTIMATE, MANUAL NORMAL (130-450,000) (NORMAL); RBC MORPHOLOGY (MULTIPLE) NORMAL APPEARANCE (NORMAL)
[2020-05-29 05:17] LABS: DIFFERENTIAL COMMENT MANUAL DIFFERENTIAL
[2020-05-29] MEDS: methylPREDNISolone SUCCINATE 40 MG/ML VIAL IVP SCH ×2 (05:37→14:23)
[2020-05-29] MEDS: PANTOPRAZOLE 40 MG TABLET PO SCH (07:01)
[2020-05-29] MEDS: IPRATROPIUM/ALBUTEROL 3 ML NEB INH SCH ×3 (07:08→15:00)
[2020-05-29] MEDS: INSULIN ASPART 300 UNIT/3 ML PEN SUBQ SCH ×2 (08:41→11:58)
[2020-05-29] MEDS: FAMOTIDINE 20 MG TABLET PO SCH (08:46)
[2020-05-29] MEDS: FERROUS SULFATE 325 MG TABLET PO SCH (08:49)
[2020-05-29] MEDS: SENNA 8.6 MG TABLET PO SCH (08:58)
[2020-05-29] MEDS: DOCUSATE SODIUM 250 MG CAPSULE PO SCH (08:59)
[2020-05-29] MEDS: OXYBUTYNIN 5MG TABLET PO SCH (08:59)
[2020-05-29] MEDS: guaiFENesin 600 MG TABLET PO SCH (08:59)
[2020-05-29] MEDS: polyethylene glycoL 3350 17 GM PACKET PO SCH (09:00)
[2020-05-29] MEDS ORDERED: ESCITALOPRAM 10 MG TABLET PO SCH (09:00)
[2020-05-29] MEDS ORDERED: buPROPion XL 150 MG TABLET PO SCH (09:00)
[2020-05-29] MEDS: cefTRIAXone 1 GM in SODIUM CHLORIDE 0.9% MINIBAG 100 ML IV SCH (09:00)
[2020-05-29] MEDS: SODIUM CHLORIDE FLUSH 0.9% 10 ML SYRINGE IVP SCH (09:00)
[2020-05-29] MEDS ORDERED: LACTOBACILLUS RHAMNOSUS GG CAPSULE PO SCH (09:00)
[2020-05-29 09:14] LABS: HEMOGLOBIN A1c% 6.4 % (4.27-6.07)
--- NOTE | 2020-05-29 09:49 | PROVIDER PROGRESS NOTE ---
Subjective - Prog Note Date Prog Note Date: 05/29/20 Prog Note Time: 09:46 - Subjective Pt reports feeling: Improved Subjective: Patient reports feeling slightly better than yesterday and is able to clear secretions from her lungs where she was not able to yesterday. She still feel like she is unable to "get enough air" especially to her right lung and gets short of breath with cough fits. She has yet to ambulate due to a drop in her oxygen level with activities. She denies fever, chills, chest pain, nausea or vomiting. Current Medications - Current Medications Current Medications: Active Medications Generic Name Dose Route Start Last Admin Trade Name Freq PRN Reason Stop Dose Admin Acetaminophen 650 mg 05/27/20 11:21 Acetaminophen 325 Mg Tablet PO Q4HR PRN Pain or Fever > 38C (100.4F) Hydrocodone Bitart/Acetaminophen 1 tab 05/28/20 14:42 05/28/20 23:41 Hydrocod/Acetam 10 Mg/325 Mg Tablet PO 1 tab TID PRN Administration PAIN Albuterol 2.5 mg 05/27/20 13:37 Albuterol Neb 2.5 Mg/3 Ml INH RTQ4H PRN Wheezing Albuterol/Ipratropium 3 ml 05/27/20 19:00 05/29/20 07:08 Ipratropium/Albuterol 3 Ml Neb INH 06/02/20 23:59 3 ml RTQID KARI Administration Benzonatate 100 mg 05/27/20 23:30 05/28/20 17:48 Benzonatate 100 Mg Capsule PO 100 mg TID PRN Administration Cough Bupropion HCl 300 mg 05/29/20 09:00 05/29/20 08:59 Bupropion Xl 150 Mg Tablet PO 300 mg DAILY KARI Administration Docusate Sodium 250 - 500 mg 05/28/20 11:00 05/29/20 08:59 Docusate Sodium 250 Mg Capsule PO 250 mg DAILY KARI Administration Escitalopram Oxalate 20 mg 05/29/20 09:00 05/29/20 08:59 Escitalopram 10 Mg Tablet PO 20 mg DAILY KARI Administration Famotidine 20 mg 05/27/20 21:00 05/29/20 08:46 Famotidine 20 Mg Tablet PO Not Given BID KARI Ferrous Sulfate 325 mg 05/27/20 21:04 05/29/20 08:49 Ferrous Sulfate 325 Mg Tablet PO Not Given DAILYWM KARI Fexofenadine HCl 180 mg 05/28/20 14:47 Fexofenadine 60 Mg Tablet PO DAILY PRN ALLERGY Guaifenesin 600 mg 05/27/20 21:00 05/29/20 08:59 Guaifenesin 600 Mg Tablet PO 600 mg BID KARI Administration Hydroxyzine Pamoate 25 mg 05/27/20 23:31 05/28/20 23:41 Hydroxyzine Pamoate 25 Mg Capsule PO 25 mg QPM PRN Administration Insomnia Ceftriaxone Sodium 1 gm/ 100 mls @ 200 mls/hr 05/28/20 09:00 05/29/20 09:00 Sodium Chloride IV 200 mls/hr DAILY KARI Administration Azithromycin 500 mg/ Sodium 250 mls @ 250 mls/hr 05/28/20 09:00 05/28/20 10:35 Chloride IV 05/29/20 09:59 Infused DAILY KARI Infusion Insulin Aspart 1 - 9 unit 05/28/20 17:00 05/29/20 08:41 Insulin Aspart 300 Unit/3 Ml Pen SUBQ Not Given 0800,1200,1700,2100 [facility] Protocol Lactobacillus Rhamnosus 1 cap 05/29/20 09:00 05/29/20 08:58 Lactobacillus Rhamnosus Gg Capsule PO 1 cap DAILY KARI Administration Methylprednisolone 80 mg 05/27/20 14:00 05/29/20 05:37 Methylprednisolone Succinate 40 Mg/Ml Vial IVP 80 mg Q8HR KARI Administration Montelukast Sodium 10 mg 05/27/20 21:00 05/28/20 20:45 Montelukast 10 Mg Tablet PO 10 mg QPM KARI Administration Morphine Sulfate 2 mg 05/27/20 14:28 05/29/20 04:07 Morphine 2 Mg/Ml Carpuject IVP 2 mg Q6HR PRN Administration Dyspnea Ondansetron HCl 4 mg 05/27/20 11:21 Ondansetron 4 Mg/2 Ml Vial IVP Q6HR PRN Nausea / Vomiting Oxybutynin Chloride 10 mg 05/27/20 21:03 05/29/20 08:59 Oxybutynin 5mg Tablet PO 10 mg DAILY KARI Administration Pantoprazole Sodium 40 mg 05/28/20 07:00 05/29/20 07:01 Pantoprazole 40 Mg Tablet PO Not Given QDAC KARI Polyethylene Glycol 17 gm 05/28/20 11:00 05/29/20 09:00 Polyethylene Glycol 3350 17 Gm Packet PO 17 gm DAILY KARI Administration Senna 8.6 - 17.2 mg 05/28/20 11:00 05/29/20 08:58 Senna 8.6 Mg Tablet PO 8.6 mg DAILY KARI Administration Sodium Chloride 10 ml 05/27/20 17:00 05/29/20 09:00 Sodium Chloride Flush 0.9% 10 Ml Syringe IVP 10 ml 0100,0900,1700 KARI Administration Sodium Chloride 10 ml 05/27/20 11:21 05/29/20 04:07 Sodium Chloride Flush 0.9% 10 Ml Syringe IVP 10 ml PRN PRN Administration NEEDED PER PROVIDER ORDERS Sodium Chloride 20 ml 05/29/20 02:15 05/29/20 05:38 Sodium Chloride Flush 0.9% 10 Ml Syringe IVP 20 ml PRN PRN Administration After Blood Draw Escitalopram Oxalate [Lexapro] 20 mg PO DAILY 11/13/12 Spironolactone [Aldactone] 25 mg PO DAILY 11/13/12 Mag Carb/Al Hydrox/Alginic AC [Gaviscon Extra Strength Liquid] 15 - 30 ml PO AC PRN 01/16/13 Lidocaine [Lidoderm] 1 patch TOP Q12H PRN 02/14/14 HYDROcodone/ACET 10/325 [Dunbar 10 mg/325 mg] 1 tab PO TID PRN 10/31/14 Fexofenadine HCl [Marcella Allergy] 180 mg PO DAILY PRN 11/06/15 Furosemide [Lasix] 40 mg PO DAILY 04/28/17 Ketoconazole 1 applic TP BID PRN 05/25/17 Oxybutynin Chloride [Ditropan Xl] 10 mg PO QPM 05/25/17 Ferrous Gluconate 240 mg PO QPM 09/01/17 Bran/Gum/Fib/Ct/Psyl/Kelp/Pec [Fiber 6 Tablet] 3,000 mg PO QPM PRN 09/11/18 Bupropion HCl [Wellbutrin Xl] 300 mg PO DAILY 09/11/18 Potassium Chloride 20 meq PO DAILY 09/11/18 Amoxicillin 2,000 mg PO ONCE PRN 05/27/20 Lansoprazole [Prevacid] 30 mg PO BIDAC 05/27/20 Lidocaine Viscous 2% [Xylocaine Viscous 2%] 10 ml PO BID PRN 05/27/20 Lidocaine [Rectasmoothe] 1 applic TOP BID 05/27/20 Losartan Potassium [Cozaar] 100 mg PO DAILY 05/27/20 Metoprolol Succinate [Toprol Xl] 200 mg PO DAILY 05/27/20 Naproxen Sodium [Aleve] 220 mg PO BID PRN 05/27/20 Nitroglycerin [Nitrostat] 0.4 mg SL Q5MIN PRN 05/27/20 Objective - Vital Signs/Intake & Output Reviewed Vital Signs: Yes Vital Signs: Vital Signs x48h Temp Pulse Pulse Resp BP Pulse Ox 05/29/20 09:00 92 05/29/20 08:00 94 17 117/81 H 93 05/29/20 07:11 77 25 H 05/29/20 07:00 76 20 116/80 92 05/29/20 05:00 36.7 C 89 18 123/96 H 91 L 05/29/20 03:00 72 22 126/70 94 Intake & Output: Intake & Output 05/26/20 05/27/20 05/28/20 05/29/20 23:59 23:59 23:59 23:59 Intake Total 2618 2705.000 640 Output Total 750 1581 570 Balance 1868 1124.000 70 - Objective General Appearance: positive: Alert, Mild distress, Other (Obese female lying in bed at 40 degrees. She is in mild respiratory distress when speaking. She is able to speak in full sentences but will stop intermittently to catch her breath.) Eyes Bilateral: positive: Normal inspection, PERRL, EOMI, No lid inflammation, Conjunctivae nml, No scleral icterus ENT: positive: ENT inspection nml, Pharynx nml, No signs of dehydration. negative: Purulent nasal drainage, Dry mucous membranes Neck: positive: Nml inspection, Thyroid nml, Trachea midline, Other (Unable to appreciate JVD due to thick neck.). negative: Thyromegaly, Lymphadenopathy (R), Lymphadenopathy (L), Stiff neck, Carotid bruit Respiratory: positive: Chest non-tender, Wheezes (Expiratory wheezes noted throughout bilateral lung mccoy), Other (tachypnea in the 20s. Lung sound absent in right lower lobe and diminished at the left lower lung.) Cardiovascular: positive: Regular rate & rhythm, No murmur, No gallop. negative: Irregularly irregular, Extrasystoles, Bradycardia, Systolic murmur, Diastolic murmur, Gallop/S3, Gallop/S4, Friction rub Peripheral Pulses: 2+ Radial (R), 2+ Radial (L), 2+ Dorsalis pedis (R), 2+ Dorsalis pedis (L), 2+ Posterior tibialis (R), 2+ Posterior tibialis (L) Abdomen: positive: Non-tender, Nml bowel sounds, No distention. negative: Tenderness, Guarding, Rebound, Bruit Skin: positive: Color nml, No rash, Warm, Dry. negative: Cyanosis, Diaphoresis, Pallor Extremities: positive: Non-tender, Full ROM, Nml appearance. negative: No pedal edema, Calf tenderness Neurologic/Psychiatric: positive: Oriented x3, Sensation nml, Mood/affect nml. negative: Sensory loss, Facial droop, Slurred/abnml speech, Depressed moo d/affect - Lab Results Fish Bones: 05/29/20 04:03 05/29/20 04:03 Other Labs: Lab Results x24hrs 05/29/20 05/29/20 05/29/20 Range/Units 08:14 04:03 04:03 WBC (4.8-10.8) x10^3/uL RBC (4.20-5.40) 10^6/uL Hgb (12.0-16.0) g/dL Hct (37.0-47.0) % MCV (81.0-99.0) fL MCH (27.0-31.0) pg MCHC (32.0-36.0) g/dL RDW (12.0-15.0) % Plt Count (130-450) 10^3/uL MPV (7.9-10.8) fL Neut # (Auto) Lymph # (Auto) [place] # (Auto) Eos # (Auto) Baso # (Auto) Absolute Nucleated RBC Total Counted Band Neuts % (Manual) (0 - 10) % Abnorm Lymph % (Manual) % Nucleated RBC % Neutrophils # (Manual) (1.5-6.6) 10^3/uL Lymphocytes # (Manual) (1.5-3.5) 10^3/uL Monocytes # (Manual) (0.0-1.0) 10^3/uL Eosinophils # (Manual) (0-0.7) 10^3/uL Basophils # (Manual) (0-0.1) 10^3/uL Differential Comment Platelet Estimate (NORMAL) RBC Morph Micro Appear (NORMAL) Sodium 140 (135-145) mmol/L Potassium 4.7 (3.5-5.0) mmol/L Chloride 103 (101-111) mmol/L Carbon Dioxide 28 (21-32) mmol/L Anion Gap 9.0 (6-13) BUN 35 H (6-20) mg/dL Creatinine 0.8 (0.4-1.0) mg/dL Estimated GFR (MDRD) 70 L (>89) Glucose 182 H (70-100) mg/dL POC Whole Bld Glucose 156 H (70 - 100) mg/dL Estimat Average Glucose 137 H (70-100) mg/dL Hemoglobin A1c % 6.4 H (4.27-6.07) % Calcium 9.3 (8.5-10.3) mg/dL Phosphorus 3.3 (2.5-4.6) mg/dL Magnesium 2.2 (1.7-2.8) mg/dL 05/29/20 05/28/20 05/28/20 Range/Units 04:03 20:27 16:49 WBC 39.6 H* (4.8-10.8) x10^3/uL RBC 3.97 L (4.20-5.40) 10^6/uL Hgb 11.9 L (12.0-16.0) g/dL Hct 38.1 (37.0-47.0) % MCV 96.0 (81.0-99.0) fL MCH 30.0 (27.0-31.0) pg MCHC 31.2 L (32.0-36.0) g/dL RDW 14.3 (12.0-15.0) % Plt Count 360 (130-450) 10^3/uL MPV 9.4 (7.9-10.8) fL Neut # (Auto) Not Reportable Lymph # (Auto) Not Reportable [place] # (Auto) Not Reportable Eos # (Auto) Not Reportable Baso # (Auto) Not Reportable Absolute Nucleated RBC Not Reportable Total Counted 100 Band Neuts % (Manual) 32 H (0 - 10) % Abnorm Lymph % (Manual) 0 % Nucleated RBC % Not Reportable Neutrophils # (Manual) 36.0 H (1.5-6.6) 10^3/uL Lymphocytes # (Manual) 1.2 L (1.5-3.5) 10^3/uL Monocytes # (Manual) 2.4 H (0.0-1.0) 10^3/uL Eosinophils # (Manual) 0.0 (0-0.7) 10^3/uL Basophils # (Manual) 0.0 (0-0.1) 10^3/uL Differential Comment MANUAL DIFFERENTIAL Platelet Estimate NORMAL (130-450,000) (NORMAL) RBC Morph Micro Appear NORMAL APPEARANCE (NORMAL) Sodium (135-145) mmol/L Potassium (3.5-5.0) mmol/L Chloride (101-111) mmol/L Carbon Dioxide (21-32) mmol/L Anion Gap (6-13) BUN (6-20) mg/dL Creatinine (0.4-1.0) mg/dL Estimated GFR (MDRD) (>89) Glucose (70-100) mg/dL POC Whole Bld Glucose 184 H 197 H (70 - 100) mg/dL Estimat Average Glucose (70-100) mg/dL Hemoglobin A1c % (4.27-6.07) % Calcium (8.5-10.3) mg/dL Phosphorus (2.5-4.6) mg/dL Magnesium (1.7-2.8) mg/dL - Diagnostic Imaging Diagnostic Imaging Results: positive: Final report reviewed ABX Reporting Has patient been on IV antibiotics over the past 48 hours?: Yes Assessment/Plan - Problem List (1) Acute respiratory failure Impression: Impression: Her acute hypoxic respiratory failure is due to pneumonia and pleural effusion. Patient remains on 10L via oximizer with O2 saturations in the low 90s. She will desaturate with big movements and/or activities. Plan is to keep her on supplemental O2 and wean as able. (2) Pleural effusion associated with pulmonary infection Impression: A chest ultrasound was done yesterday showing inoculated right pleural effusion. Thoracentesis was canceled due to the nature of the pleural effusion and considered not amendable to percutaneous drainage. A chest CT is needed per radiology for better visualization of the pleural effusion. Plan: CTA is ordered this morning. The results will help guide whether patient can get a thoracentesis vs. decortication. (3) Pneumonia Impression: Blood cultures are negative. She is afebrile. Plan: Patient remains hypoxic overnight and this morning. Will continue her IV ceftriaxone and azithromycin. WBC is still elevated (39). Will continue to monitor and trend WBC. Qualifiers: Pneumonia type: due to unspecified organism Laterality: right Lung location: unspecified part of lung Qualified Code(s): J18.9 - Pneumonia, unspecified organism (4) Elevated WBC count Impression: Her WBC is coming down slightly but is still elevated. Patient has a history of follicular lymphoma. She was diagnosed with non-Hodgkin's lymphoma in 2005 where she was treated with chemotherapy--Rixtuxan and has been in remission. She is being followed by Dr. Sena and last seen her in August 2018. Patient received infrequent IV iron infusions (last use in Feb 2018) for iron deficiency anemia. Today white cell count is 39. Neutrophils 36. No lymphocytosis. Plan: Leukocytosis may be secondary to bacterial pneumonia vs. lymphoma. Blood smear was sent and received by pathology. Awaiting for results. Will proceed to peripheral flow cytometry if indicated. Qualifiers: Leukocytosis type: monocytosis Qualified Code(s): D72.821 - Monocytosis (symptomatic) (5) Acute kidney injury superimposed on chronic kidney disease Impression: This is now resolved. Her creatinine to day is 0.8. (6) Chronic systolic (congestive) heart failure Impression: Patient had previous echocardiograms in 2018 and July of 2019 showing LVEF 40-45% with mild-moderate RV dilation. The echo also showed grade 1 diastolic dysfunction with mild tricuspid valve regurgitation but no significant valvular disease. An echocardiogram was done yesterday showing improvement of her LVEF 50-55%, moderate RV enlargement. Her atrial sizes is normal. No valvular heart disease noted. Plan: She will continue hold her heart failure medication from home: Nitrostat, spironolactone, losartan, Lasix, and Toprol-XL. (7) Physical deconditioning Impression: She lives alone and is independent with her ADLs. She ambulates with a cane and does everything on her own. Patient recently moved out of her son's house due to family dynamic issues. Because of her recent illness, she has not been able to adequately care for herself in terms of cooking and bathing. Plan: Patient will need PT evaluation when she is no longer hypoxic with activities. Qualifiers: Respiratory failure complication: hypoxia Qualified Code(s): J96.01 - Acute respiratory failure with hypoxia
[2020-05-29] MEDS: AZITHROMYCIN INJ 500 MG in SODIUM CHLORIDE 0.9% 250 ML IV SCH (10:31)
--- NOTE | 2020-05-29 10:55 | CT Report ---
PROCEDURE: CHEST WO INDICATIONS: loculated pleural effusion w mass TECHNIQUE: Noncontrast 5 mm thick sections acquired from the pulmonary apices to the posterior costophrenic angl es. 7 mm thick coronal and sagittal MIP reformats were then acquired. For radiation dose reduction, the following was used: automated exposure control, adjustment of mA and/or kV according to patient size. COMPARISON: Ultrasound dated 05/28/2020, chest radiographs dated 05/27/2020 FINDINGS: Image quality: Excellent. Lungs and pleura: Complex loculated right pleural effusion is noted, with adjacent atelectasis. Ther e is greater than expected attenuation for simple fluid in keeping with ultrasound appearance. Underl susanne mass or nodule cannot be excluded. Scattered atelectasis present in the left lung, without left pleural effusion. No pneumothorax is seen. Mediastinum: Heart size is normal. Coronary artery calcifications are noted. No pericardial effusi on. No mediastinal adenopathy by size criteria although suboptimal evaluation of the absence of IV c ontrast. Thoracic aorta and central pulmonary arteries are normal in size. Esophagus is normal in c aliber. No hiatal hernia. Bones and chest wall: No suspicious bony lesions. Multiple chronic appearing right rib fractures. No vertebral body compression fractures. No axillary or supraclavicular adenopathy by size criteria. T hyroid contains a low-attenuation nodule in the right lobe which would be better assessed with ultras ound Status post cholecystectomy IMPRESSION: Complex, loculated right pleural effusion, with adjacent atelectasis. Underlying pulmonary nodule or mass cannot be excluded. Recommend clinical management and follow-up. Coronary artery disease Thyroid nodule with low attenuation in the right lobe. Further evaluation with dedicated thyroid ultr asound recommended when clinically feasible Reviewed by: Dwayne Gutierrez MD on 05/29/2020 10:53 AM PST Approved by: Dwayne Gutierrez MD on 05/29/2020 10:53 AM PST Station ID: [id number]
--- NOTE | 2020-05-29 14:55 | DISCHARGE SUMMARY ---
Discharge Summary Admit Date: 05/27/20 Discharge Date: 05/29/20 Discharging Provider: Maritza Segura MD Primary Care Provider: Jamey Shelton MD Code Status: Attempt Resuscitation Condition at Discharge: Serious Discharge Disposition: 02 Transfer Acute Care Hosp Discharge [facility] Name: [facility] - DIAGNOSES Discharge Diagnoses with Status of Each Condition: 1. Loculated pleural effusion 2. Acute respiratory failure with hypoxia 3. Hypotension present on admission, resolved 4. COPD with exacerbation 5. Acute kidney injury 6. Chronic systolic congestive heart failure, idiopathic 7. Elevated white cell count 8. History of non-Hodgkin's follicular lymphoma 9. Possible community-acquired pneumonia 10. Physical deconditioning 11. History of falls in home 12. Hyperglycemia due to steroids - HPI History of Present Illness: She is a 75-year-old white female who has idiopathic cardiomyopathy, COPD and is on nighttime oxygen. She also has a history of obstructive sleep apnea on CPAP. But she says she has not used that in a while. She has a history of a fall from a horse and a right flail chest. This was years ago. She also has a history of non-Hodgkin's follicular lymphoma treated in [address] Blount (From [facility]) with Rituxan. She developed shortness of breath a week ago and was seen in the emergency room. She had a negative Covid test, and she was felt to have a viral illness and discharged to take prednisone with her inhalers. She increased her oxygen at home from 3 L as needed to 6 L a day 11/01. She was so short of breath, at rest, with severe orthopnea that she came back to the emergency room. In the emergency room she desaturated to the mid 80s with 3 L of oxygen. She complained of a cough, wheezing, dyspnea on exertion that was severe. No fever, no chills, no GI symptoms. Her exam had her to be a severely obese female with moderate respiratory distress. Room air saturation was 80% and on oxygen with 3 L she went to 91%. She had very dry oral mucosa, JVD in the vertical position, scattered wheezes posteriorly with prolonged end expiratory phase of exhalation. No clubbing cyanosis or edema. She had acute kidney injury with a creatinine of 1.3. A lactic acid that was normal at 1.5. BNP 321. Troponin 14. White cell count elevated at 32.6. When she was in the emergency room a week ago it was normal. Chest x-ray had a moderate to large right pleural effusion and underlying right- sided infiltrate. 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 Thoracentesis not completed due to complex lo Procedures: 1. Echocardiogram with normal left ventricular size and function, EF 55%. Severe pulmonary hypertension with PASP 68 mmHg. Moderately dilated right ventricle with normal function. When compared to previous echo, this is a new function dysfunction. Mild to moderate tricuspid regurgitation. 2. Chest x-ray showing moderate to large right pleural effusion and underlying right-sided infiltrate/mass. No pneumothorax. Left lung clear. 3. Chest ultrasound with poor visualization of right pleural fluid due to body habitus and echogenic loculated nature of pleural effusion. CT of chest with IV contrast recommended. This is not considered an effusion which is amenable to percutaneous drainage at this time. 4. Chest CT with complex loculated right pleural effusion and adjacent atelectasis. There is greater than expected attenuation for simple fluid in keeping with ultrasound appearance. Underlying mass or nodule cannot be excluded. Scattered atelectasis present in the left lung without left pleural effusion. No pneumothorax. No pericardial effusion. Bones and chest wall without suspicious lesions. Multiple chronic appearing right rib fractures. 5. Blood cultures negative after 2 days 6. MRSA nasal negative. 7. Respiratory PCR panel negative for all viruses including SARS-CoV-2 - HOSPITAL COURSE Hospital Course: She was started on empiric antibiotic therapy for community-acquired pneumonia. However her shortness of breath and hypoxia were out of proportion to the chest x-ray findings. Ultrasound was done to see if thoracentesis could be done therapeutically and diagnostically. Radiology stated that the effusion was loculated, not amenable to thoracentesis at our institution. CT was recommended and CT confirms a complex loculated pleural effusion. I spoke to general surger y collections curator. Dr. Mcbride said that this is beyond our ability to take care of this patient and recommends transfer to higher level of care.I spoke to Dr. Antoinette Bermeo at [facility]. I then spoke to the thoracic surgeon collections curator which is Dr. Pulliam. Both accepted the patient in transfer. In the meantime this patient continues to have hypoxia, cough. Shortness of breath is severe and she is very uncomfortable laying up below 40 degrees. She is a loquacious speaker. She will talk to the point of making herself hypoxic. She does not like the Sotomayor catheter and attempted to get out of bed several times at night and would desaturate to the mid 80s. She also has occasional hallucinations of butterflies in the room. The patient was on Solu-Medrol 80 mg IV during the stay. She could be having demargination from steroids. White cell count was normal before this admission. A peripheral flow cytometry was ordered and pending at the time of discharge. Acute kidney injury has resolved with hydration and her creatinine is 0.8 on the day of discharge. She had hyperglycemia due to the steroids that she used in the preadmission setting. Peak glucose was 197. 157 on the day of discharge. A1c is 6.4%. She tells me that she lives alone. History of frequent falls at home for no specific reason. She thinks that she trips on things but she never passes out. She called 911 frequently to pick her up. She used to live with the son. But she said that her manner of communication and the feeling that she had to set her son and [id number] straight on how to raise the children correctly cause them to "ask me to leave" after a year and a half. She has been living in her own home since 2019 until now. She is transferred in stable condition. Temperature is 36.2. Pulse is 99. Blood pressure 126/65. Respirations varied between 19-26 depending on her speaking. She is 92% on 6 L Oxymizer. Short statured morbidly obese female. She is 4 foot 10 inches tall and weighs 113.5 kg. JVD is seen. Lungs have coarse rhonchi bilaterally and occasional wheeze right midlung. She will use her accessory muscles if she tries to get up out of bed on her own and then recover. She has a regular rate and rhythm that is occasionally tachycardic with exertion. The abdomen is obese, soft, nontender. Bela intertrigo present in the pannus of her abdomen and groin. Extremities are without clubbing cyanosis or edema. She is alert, oriented, not hallucinating today. Greater than 30 minutes was spent coordinating discharge. - ALLERGIES Allergies/Adverse Reactions: Allergies Allergy/AdvReac Type Severity Reaction Status Date / Time adhesive Allergy Rash Verified 05/27/20 09:23 glycerin Allergy Itching Verified 05/27/20 09:23 - MEDICATIONS Home Medications: Ambulatory Orders Medication Instructions Recorded Confirmed Escitalopram Oxalate [Lexapro] 20 mg PO DAILY 11/13/12 05/27/20 Spironolactone [Aldactone] 25 mg PO DAILY 11/13/12 05/27/20 Mag Carb/Al Hydrox/Alginic AC 15 - 30 ml PO AC PRN 01/16/13 05/27/20 [Gaviscon Extra Strength Liquid] Lidocaine [Lidoderm] 1 patch TOP Q12H PRN 02/14/14 05/27/20 HYDROcodone/ACET 10/325 [[place] 10 1 tab PO TID PRN 10/31/14 05/27/20 mg/325 mg] Fexofenadine HCl [Marcella Allergy] 180 mg PO DAILY PRN 11/06/15 05/27/20 Furosemide [Lasix] 40 mg PO DAILY 04/28/17 05/27/20 Ketoconazole 1 applic TP BID PRN 05/25/17 05/27/20 Oxybutynin Chloride [Ditropan Xl] 10 mg PO QPM 05/25/17 05/27/20 Ferrous Gluconate 240 mg PO QPM 09/01/17 05/27/20 Bran/Gum/Fib/Ct/Psyl/Kelp/Pec 3,000 mg PO QPM PRN 09/11/18 05/27/20 [Fiber 6 Tablet] Bupropion HCl [Wellbutrin Xl] 300 mg PO DAILY 09/11/18 05/27/20 Potassium Chloride 20 meq PO DAILY 09/11/18 05/27/20 Amoxicillin 2,000 mg PO ONCE PRN 05/27/20 05/27/20 Lansoprazole [Prevacid] 30 mg PO BIDAC 05/27/20 05/27/20 Lidocaine Viscous 2% [Xylocaine 10 ml PO BID PRN 05/27/20 05/27/20 Viscous 2%] Lidocaine [Rectasmoothe] 1 applic TOP BID 05/27/20 05/27/20 Losartan Potassium [Cozaar] 100 mg PO DAILY 05/27/20 05/27/20 Metoprolol Succinate [Toprol Xl] 200 mg PO DAILY 05/27/20 05/27/20 Naproxen Sodium [Aleve] 220 mg PO BID PRN 05/27/20 05/27/20 Nitroglycerin [Nitrostat] 0.4 mg SL Q5MIN PRN 05/27/20 05/27/20 - LABS Result Diagrams: 05/29/20 04:03 05/29/20 04:03
--- NOTE | 2020-05-29 15:44 | Discharge Plan ---
Discharge Plan Problem Reviewed?: Yes Disposition: 02 Transfer Acute Care Hosp Condition: Serious No Smoking: If you smoke, Please STOP! Call for help. Follow-up with: Jamey Shelton MD [Primary Care Provider] -
[2020-05-29 16:08] VITALS: BP 102/72
[2020-05-30] MEDS ORDERED: AZITHROMYCIN INJ 500 MG in SODIUM CHLORIDE 0.9% 250 ML IV SCH (09:00)
== END 2020-05-29 16:20 | disposition short-term general hospital (02) | DRG 189 ==
LOC: ED 09:03 → ICU 11:21
PROVIDERS: ADMIT Internal Medicine; ATTEND Specialist
PROC: 05H533Z Insertion of Infusion Device into Right Subclavian Vein, Percutaneous Approach (ICD-10-PCS; principal; 2020-05-27)
DX: J96.01 Acute respiratory failure with hypoxia (principal); J18.9 Pneumonia, unspecified organism; J90 Pleural effusion, not elsewhere classified; R09.02 Hypoxemia; J44.0 Chronic obstructive pulmonary disease with (acute) lower respiratory infection; J44.1 Chronic obstructive pulmonary disease with (acute) exacerbation; N17.9 Acute kidney failure, unspecified; I50.22 Chronic systolic (congestive) heart failure; I43 Cardiomyopathy in diseases classified elsewhere; Z68.43 Body mass index [BMI] 50.0-59.9, adult; E66.01 Morbid (severe) obesity due to excess calories; I95.9 Hypotension, unspecified; R73.9 Hyperglycemia, unspecified; T38.0X5A Adverse effect of glucocorticoids and synthetic analogues, initial encounter; I11.0 Hypertensive heart disease with heart failure; D72.821 Monocytosis (symptomatic); G47.30 Sleep apnea, unspecified; R44.1 Visual hallucinations; R53.81 Other malaise; I27.20 Pulmonary hypertension, unspecified; I07.1 Rheumatic tricuspid insufficiency; R79.1 Abnormal coagulation profile; K21.9 Gastro-esophageal reflux disease without esophagitis; K44.9 Diaphragmatic hernia without obstruction or gangrene; F32.9 Major depressive disorder, single episode, unspecified; R32 Unspecified urinary incontinence; H54.7 Unspecified visual loss; M19.90 Unspecified osteoarthritis, unspecified site; G89.29 Other chronic pain; M54.9 Dorsalgia, unspecified; Z79.891 Long term (current) use of opiate analgesic; Z79.52 Long term (current) use of systemic steroids; Z79.899 Other long term (current) drug therapy; Z91.81 History of falling; Z85.72 Personal history of non-Hodgkin lymphomas; Z92.21 Personal history of antineoplastic chemotherapy
CPT/HCPCS: 36415; 36600; 71045; 71250; 76604; 80048; 80053; 82803; 83036; 83605; 83690; 83735; 83880; 84100; 84484; 85025; 85610; 87040; 87081; 87631; 93005; 93306; 94640; 96374; 97161; 99285; A9270; C1751; 0202U; 87150

== ENCOUNTER 2020-05-29 16:43 | Outpatient (CLI) | payer MEDICARE, BC | END 2020-05-29 16:44 | disposition short-term general hospital (02) | LOC: EMS 16:43 | PROVIDERS: ATTEND Surgery | DX: R09.02 Hypoxemia (principal) | CPT/HCPCS: A0425; A0428 ==

== ENCOUNTER 2020-10-08 15:53 | Outpatient (CLI) | payer MEDICARE, BC ==
--- NOTE | 2020-10-08 16:31 | XRAY Report ---
PROCEDURE: Chest 2 View X-Ray INDICATIONS: COUGH TECHNIQUE: 2 view(s) of the chest. COMPARISON: 05/28/2020 chest x-ray FINDINGS: Surgical changes and devices: Lumbar fusion hardware. Lungs and pleura: No pleural effusions or pneumothorax. Lungs are clear. Mediastinum: Mediastinal contours are normal. Heart size is normal. Bones and chest wall: No suspicious bony abnormalities. Soft tissues appear unremarkable. IMPRESSION: No acute process. Reviewed by: Heidi Green MD on 10/08/2020 4:29 PM PDT Approved by: Heidi Green MD on 10/08/2020 4:29 PM PDT Station ID: [id number]
== END 2020-10-08 15:54 | disposition home or self-care (01) ==
LOC: DI.N 15:53
PROVIDERS: ATTEND Internal Medicine
DX: R05 Cough (principal); R91.8 Other nonspecific abnormal finding of lung field

== ENCOUNTER 2020-12-19 18:45 | Outpatient (CLI) | payer MEDICARE, BC | END 2020-12-19 18:46 | disposition EMS.NT | LOC: EMS 18:45 | DX: Z03.89 Encounter for observation for other suspected diseases and conditions ruled out (principal) ==

== ENCOUNTER 2020-12-25 19:40 | Outpatient (CLI) | payer MEDICARE, BC | END 2020-12-25 19:41 | disposition EMS.NT | LOC: EMS 19:40 | DX: S61.011A Laceration without foreign body of right thumb without damage to nail, initial encounter (principal); S09.90XA Unspecified injury of head, initial encounter; W18.39XA Other fall on same level, initial encounter; Y93.89 Activity, other specified; Y92.038 Other place in apartment as the place of occurrence of the external cause ==

== ENCOUNTER 2021-05-20 19:27 | Outpatient (CLI) | payer MEDICARE, BC | END 2021-05-20 19:28 | disposition EMS.NT | LOC: EMS 19:27 | DX: Z03.89 Encounter for observation for other suspected diseases and conditions ruled out (principal) ==

== ENCOUNTER 2021-05-21 16:31 | Outpatient (CLI) | payer MEDICARE, BC ==
--- NOTE | 2021-05-21 17:21 | XRAY Report ---
PROCEDURE: Hand 3 View LT INDICATIONS: L HAND FOOSH INJURY TECHNIQUE: 3 views of the hand(s) acquired. COMPARISON: None FINDINGS: Bones: No fractures or dislocations. Osteoarthritic changes are noted along radial aspect of left wr ist and throughout left hand joints particularly involving first CMC joint, second and third DIP join t and third PIP joint. Features in second and third DIP joints are suggestive of erosive osteoarthrit is. No suspicious bony lesions. Soft tissues: No suspicious soft tissue calcifications. IMPRESSION: No left hand fracture or dislocation. Osteoarthritic changes in left hand and wrist joints as above. Reviewed by: Ashu Leija MD on 05/21/2021 5:19 PM PST Approved by: Ashu Leija MD on 05/21/2021 5:19 PM PST Station ID: [id number]
== END 2021-05-21 16:32 | disposition home or self-care (01) ==
LOC: DI.N 16:31
PROVIDERS: ATTEND Physician Assistant
DX: S69.92XA Unspecified injury of left wrist, hand and finger(s), initial encounter (principal); M19.042 Primary osteoarthritis, left hand; M19.032 Primary osteoarthritis, left wrist

== ENCOUNTER 2021-08-08 16:15 | Outpatient (CLI) | payer MEDICARE, BC ==
--- NOTE | 2021-08-11 14:57 | XRAY Report ---
PROCEDURE: Hip w/Pelvis 2-3V LT INDICATIONS: LEFT POSTERIOR HIP PAIN TECHNIQUE: AP pelvis with lateral view(s) of the right hip(s). COMPARISON: None. FINDINGS: Bones: No fractures or dislocations. Pelvic ring appears intact. No suspicious bony lesions. Mode rate bilateral acetabular joint space narrowing noted. No significant marginal osteophytes present. Soft tissues: The visualized bowel gas pattern is normal. No suspicious soft tissue calcifications. Overlying pelvic herniorrhaphy fasteners as well as unilateral right lower lumbar spine pedicle scre ws. IMPRESSION: 1. Moderate bilateral acetabular joint space narrowing without flattening of the femoral head Reviewed by: Lance Adorno MD on 08/11/2021 1:55 PM AKST Approved by: Lance Adorno MD on 08/11/2021 1:55 PM AK Station ID: [id number]
== END 2021-08-08 16:16 | disposition home or self-care (01) ==
LOC: DI.N 16:15
PROVIDERS: ATTEND Physician Assistant
DX: M25.852 Other specified joint disorders, left hip (principal)

== ENCOUNTER 2021-09-16 23:24 | Outpatient (CLI) | payer MEDICARE, BC | END 2021-09-16 23:25 | disposition EMS.NT | LOC: EMS 23:24 | DX: Z03.89 Encounter for observation for other suspected diseases and conditions ruled out (principal) ==

== ENCOUNTER 2022-05-01 11:03 | Emergency (ER) | payer MEDICARE, BC ==
--- NOTE | 2022-05-01 11:04 | ED Physician Documentation ---
PD HPI UPPER EXT INJURY - Stated complaint Stated Complaint: GLF/R SHOULDER PX - History obtained from History obtained from: Patient - Additonal information Additional information: She has a recent diagnosis of an infection of the left second toe for which she was prescribed penicillin. Pharmacy did not have penicillin she started some amoxicillin she had yesterday. Today she was in her usual state of health but with continued toe pain. She was away from her usual home oxygen and felt weak and then slipped on a rug that is supposedly nonslip and fell on her right shoulder which has chronic pain but now worse. No other injuries from the fall. No syncope. Review of Systems Constitutional: reports: Reviewed and negative Eyes: reports: Reviewed and negative Ears: reports: Reviewed and negative Cardiac: reports: Reviewed and negative Respiratory: reports: Reviewed and negative PD PAST MEDICAL HISTORY - Past Medical History Cardiovascular: Hypertension, Other Respiratory: Sleep apnea, CPAP use Neuro: None Endocrine/Autoimmune: None GI: GERD, Hiatal hernia COUNSELOR DORMITORY: None : None HEENT: None Psych: Depression Musculoskeletal: Osteoarthritis, Chronic back pain Derm: None - Past Surgical History Past Surgical History: Yes General: Cholecystectomy, Other Ortho: Other /COUNSELOR DORMITORY: section Cardiovascular: Cardiac catheterization - Present Medications Home Medications: Ambulatory Orders Medication Instructions Recorded Confirmed Escitalopram Oxalate [Lexapro] 20 mg PO DAILY 11/13/12 05/27/20 Spironolactone [Aldactone] 25 mg PO DAILY 11/13/12 05/27/20 Mag Carb/Al Hydrox/Alginic AC 15 - 30 ml PO AC PRN 01/16/13 05/27/20 [Gaviscon Extra Strength Liquid] Lidocaine [Lidoderm] 1 patch TOP Q12H PRN 02/14/14 05/27/20 HYDROcodone/ACET 10/325 [[place] 10 1 tab PO TID PRN 10/31/14 05/27/20 mg/325 mg] Fexofenadine HCl [Marcella Allergy] 180 mg PO DAILY PRN 11/06/15 05/27/20 Furosemide [Lasix] 40 mg PO DAILY 04/28/17 05/27/20 Ketoconazole 1 applic TP BID PRN 05/25/17 05/27/20 Oxybutynin Chloride [Ditropan Xl] 10 mg PO QPM 05/25/17 05/27/20 Ferrous Gluconate 240 mg PO QPM 09/01/17 05/27/20 Bran/Gum/Fib/Ct/Psyl/Kelp/Pec 3,000 mg PO QPM PRN 09/11/18 05/27/20 [Fiber 6 Tablet] Bupropion HCl [Wellbutrin Xl] 300 mg PO DAILY 09/11/18 05/27/20 Potassium Chloride 20 meq PO DAILY 09/11/18 05/27/20 Amoxicillin 2,000 mg PO ONCE PRN 05/27/20 05/27/20 Lansoprazole [Prevacid] 30 mg PO BIDAC 05/27/20 05/27/20 Lidocaine Viscous 2% [Xylocaine 10 ml PO BID PRN 05/27/20 05/27/20 Viscous 2%] Lidocaine [Rectasmoothe] 1 applic TOP BID 05/27/20 05/27/20 Losartan Potassium [Cozaar] 100 mg PO DAILY 05/27/20 05/27/20 Metoprolol Succinate [Toprol Xl] 200 mg PO DAILY 05/27/20 05/27/20 Naproxen Sodium [Aleve] 220 mg PO BID PRN 05/27/20 05/27/20 Nitroglycerin [Nitrostat] 0.4 mg SL Q5MIN PRN 05/27/20 05/27/20 Amox/Clav 875/125 [Augmentin] 1 each PO Q12H #20 tablet 05/01/22 - Allergies Allergies/Adverse Reactions: Allergies Allergy/AdvReac Type Severity Reaction Status Date / Time adhesive Allergy Rash Verified 05/27/20 09:23 glycerin Allergy Itching Verified 05/27/20 09:23 - Social History Does the pt smoke?: No Smoking Status: Never smoker Does the pt drink ETOH?: No Does the pt have substance abuse?: No - Immunizations Immunizations are current?: Yes - POLST Patient has POLST: No PD ED PE NORMAL - Vitals Vital signs reviewed: Yes - General General: Alert and oriented X 3, No acute distress - HEENT HEENT: PERRL, EOMI - Neck Neck: Supple, no meningeal sign, No bony TTP - Cardiac Cardiac: RRR, No murmur - Back Back: No CVA TTP, No spinal TTP - Derm Derm: Normal color, Warm and dry - Extremities Extremities: Other (No obvious deformity of the right shoulder, limited somewhat by body habitus. She is able to raise off the bed just a bit but is limited due to pain. She is quite tender posteriorly. The left second toe has a purulent ulcer over the dorsum with cellulitis of the whole toe but not proximal to toe) - Neuro Neuro: Alert and oriented X 3, Normal speech Results - Vitals Vitals: Vital Signs - 24 hr 05/01/22 05/01/22 05/01/22 11:03 12:44 12:51 Temperature 37.6 C Heart Rate 85 90 87 Respiratory 17 20 16 Rate Blood Pressure 135/54 H 116/93 H 116/93 H O2 Saturation 94 96 94 If not protocol : Oxygen Flow, liters/minute 05/01/22 13:55 Temperature Heart Rate 88 Respiratory 21 Rate Blood Pressure 133/83 H O2 Saturation 100 If not protocol 3 : Oxygen Flow, liters/minute Oxygen O2 Source Nasal cannula - Rads (name of study) Three-view x-ray left second toe is negative Radiology: EMP read contemporaneously Three-view x-ray right shoulder showing anterior-inferior dislocation Radiology: EMP read contemporaneously Procedures - Reduction Body part reduced: Right, Shoulder Fracture or dislocation: Dislocation Anesthesia: Other (see COMPUTER LANGUAGE CODER notes) Shoulder reduction technique: [place] / ext rotation, Traction - counter tract PD MEDICAL DECISION MAKING - ED course ED course: 77-year-old woman with multiple comorbidities and 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 Given her comorbidities she was sedated by JIM Pisano and with some difficulty we were able to relocate the shoulder. She was feeling better. She does have an infection of the left second toe this was cultured and she is placed on Augmentin as she had trouble filling the prescription given to her by of her business planning director. Note made that her range of motion prior to reduction attempt was very limited and the radiologist felt that the post reduction films were no different, that said her range of motion after the reduction was much better and I do feel that there is some improvement in the appearance of the films. There is definitely a chronic component to her dislocation, but she feels like she is back to her baseline. Departure - Departure Disposition: 01 Home, Self Care Clinical Impression: Shoulder dislocation, recurrent, Cellulitis of toe of left foot Instructions: Cellulitis Dc Prescriptions: Amox/Clav 875/125 [Augmentin] 1 each PO Q12H #20 tablet Comments: I sent your prescription electronically to [facility] in [place]. We are performing a wound culture, the results should be done in 48-72 hours. If antibiotic change is necessary we will call you. Return if worse in the meantime, especially if you develop increased pain, fevers, cannot keep down the medication. Otherwise follow-up with your physician in approximately 2-3 days.
[2022-05-01] MEDS ORDERED: PIPERACILLIN/TAZOBACTAM 3.375 GM in SODIUM CHLORIDE 0.9% MINIBAG 100 ML IV STA (11:47)
[2022-05-01] MEDS ORDERED: PROPOFOL 200 MG/20 ML VIAL IVP STA (11:47)
[2022-05-01] MEDS ORDERED: KETAMINE 500 MG/10 ML VIAL ONE (12:05)
[2022-05-01] MEDS ORDERED: PROPOFOL 200 MG/20 ML VIAL IVP ONE (12:05)
--- NOTE | 2022-05-01 12:57 | XRAY Report ---
PROCEDURE: Shoulder 3 View RT INDICATIONS: shoulder injury TECHNIQUE: 3 views of the shoulder were acquired. COMPARISON: 10/18/2018 FINDINGS: Bones: There is anterior, inferior dislocation of the right humeral head relative to the glenoid. Adv anced degenerative changes of the acromioclavicular and glenohumeral joints. Irregular cortical saranya ns of the right humeral head similar to that seen on comparison study. However, concurrent fracture n ot completely excluded. No suspicious bony lesions. Visualized ribs appear intact. Soft tissues: No suspicious soft tissue calcifications. IMPRESSION: Anterior, inferior dislocation the right humeral head relative to the glenoid with persi stent cortical irregularity of the right humeral head. This appears relatively similar in morphology compared to 2019 study however, somewhat angular cortical margin over the medial aspect cannot exclud e underlying fracture. Reviewed by: Sukhdeep Kiser MD on 05/01/2022 12:55 PM PST Approved by: Sukhdeep Kiser MD on 05/01/2022 12:55 PM PST Station ID: [id number]
--- NOTE | 2022-05-01 13:00 | XRAY Report ---
PROCEDURE: Toe(s) LT INDICATIONS: toe infection TECHNIQUE: 3 views of the left second toe(s) acquired. COMPARISON: None. FINDINGS: No acute fractures or dislocations. No osseous erosions or cortical destruction identified in the re gion of the left second toe. There is moderate soft tissue swelling of the left second toe. No eviden ce for soft tissue gas. No radiopaque soft tissue foreign body seen. No suspicious bony lesions. IMPRESSION: Moderate left second toe soft tissue swelling without underlying osseous erosions. No definite evidence for osteomyelitis; however, radiographic abnormalities can be a late manifestati on. Consider further evaluation with MRI if there is persistent high clinical concern for osteomyelit is. Reviewed by: Sukhdeep Kiser MD on 05/01/2022 12:58 PM PST Approved by: Sukhdeep Kiser MD on 05/01/2022 12:58 PM PST Station ID: [id number]
--- NOTE | 2022-05-01 13:06 | ANESTHESIA ---
Pre-Anesthesia VS, & Labs - Diagnosis R SHOULDER DISLOCATION - Procedure R shoulder relocation under sedation Vital Signs: Temp Pulse Resp BP Pulse Ox O2 Flow Rate 37.6 C 87 16 116/93 H 94 05/01/22 11:03 05/01/22 12:51 05/01/22 12:51 05/01/22 12:51 05/01/22 12:51 Height: 5 ft 9.5 in Weight (kg): 113.5 kg Body Mass Index: 36.4 BMI Classification: Obese - NPO Last Food Intake: 6hrs - Is Patient ?: No - Lab Results Lab results reviewed: Yes Home Medications and Allergies Escitalopram Oxalate [Lexapro] 20 mg PO DAILY 11/13/12 Spironolactone [Aldactone] 25 mg PO DAILY 11/13/12 Mag Carb/Al Hydrox/Alginic AC [Gaviscon Extra Strength Liquid] 15 - 30 ml PO AC PRN 01/16/13 Lidocaine [Lidoderm] 1 patch TOP Q12H PRN 02/14/14 HYDROcodone/ACET 10/325 [[place] 10 mg/325 mg] 1 tab PO TID PRN 10/31/14 Fexofenadine HCl [Marcella Allergy] 180 mg PO DAILY PRN 11/06/15 Furosemide [Lasix] 40 mg PO DAILY 04/28/17 Ketoconazole 1 applic TP BID PRN 05/25/17 Oxybutynin Chloride [Ditropan Xl] 10 mg PO QPM 05/25/17 Ferrous Gluconate 240 mg PO QPM 09/01/17 Bran/Gum/Fib/Ct/Psyl/Kelp/Pec [Fiber 6 Tablet] 3,000 mg PO QPM PRN 09/11/18 Bupropion HCl [Wellbutrin Xl] 300 mg PO DAILY 09/11/18 Potassium Chloride 20 meq PO DAILY 09/11/18 Amoxicillin 2,000 mg PO ONCE PRN 05/27/20 Lansoprazole [Prevacid] 30 mg PO BIDAC 05/27/20 Lidocaine Viscous 2% [Xylocaine Viscous 2%] 10 ml PO BID PRN 05/27/20 Lidocaine [Rectasmoothe] 1 applic TOP BID 05/27/20 Losartan Potassium [Cozaar] 100 mg PO DAILY 05/27/20 Metoprolol Succinate [Toprol Xl] 200 mg PO DAILY 05/27/20 Naproxen Sodium [Aleve] 220 mg PO BID PRN 05/27/20 Nitroglycerin [Nitrostat] 0.4 mg SL Q5MIN PRN 05/27/20 Allergies/Adverse Reactions: Allergies Allergy/AdvReac Type Severity Reaction Status Date / Time adhesive Allergy Rash Verified 05/27/20 09:23 glycerin Allergy Itching Verified 05/27/20 09:23 Anes History & Medical History - Anesthetic History Anesthesia Complications: reports: No previous complications Family history of Anesthesia Complications: Denies Family history of Malignant Hyperthermia: Denies - Medical History Cardiovascular: reports: Congestive heart failure, Hypertension, Other Pulmonary: reports: Shortness of breath, Sleep apnea, CPAP use Gastrointestinal: reports: GERD, Hiatal hernia Urinary: reports: None Neuro: reports: None Musculoskeletal: reports: Osteoarthritis, Chronic back pain Endocrine/Autoimmune: reports: None Blood Disorders: reports: None Skin: reports: None Smoking Status: Never smoker - Surgical History General: reports: Cholecystectomy, Other Cardiothoracic: reports: Cardiac catheterization Gynecologic: reports: section Orthopedic: reports: Other Exam General: Alert, Oriented x3, Cooperative Dental: Other Mouth Openin Fingerbreadth Neck Mobility: Normal Mallampati classification: II Thyromental Distance: 4-6 cm Respiratory: Lungs clear, Decreased breath sounds Cardiovascular: Regular rate Neurological: Normal speech Cognitive Status: Within normal limits Plan Anesthesia Type: Total IV Consent for Procedure(s) Verified and Reviewed: Yes Code Status: Attempt Resuscitation ASA classification: 3-Severe systemic disease Is this case an emergency?: Yes
--- NOTE | 2022-05-01 13:06 | ANESTHESIA POST OP EVALUATION ---
Anesthesia Post Eval - Post Anesthesia Eval Vitals: Last Vital Signs Temp 37.6 C 05/01/22 11:03 Pulse 87 05/01/22 12:51 Resp 16 05/01/22 12:51 BP 116/93 H 05/01/22 12:51 Pulse Ox 94 05/01/22 12:51 O2 Flow Rate CV Function Including HR & BP: Stable Pain Control: Satisfactory Nausea & Vomiting: Negative Mental Status: Baseline (drowsy, responds appropriately) Respiratory Status: Airway Patent Hydration Status: Satisfactory Anesthesia Complications: None
--- NOTE | 2022-05-01 14:07 | XRAY Report ---
PROCEDURE: Shoulder 3 View RT INDICATIONS: shoulder disclocation TECHNIQUE: 3 views of the shoulder were acquired. COMPARISON: None. FINDINGS: Bones: Severe degenerative changes of the acromioclavicular joint and glenohumeral joint. No fractur e is identified, however images are limited. There is anterior inferior displacement of the humeral h ead relative to the glenoid consistent with anterior dislocation. Prior images however have a similar appearance and this could be due to chronic laxity.. Visualized ribs appear intact. Soft tissues: No suspicious soft tissue calcifications. IMPRESSION: Anterior inferior displacement of the humeral head relative to the glenoid, unchanged co mpared to prior images. This could be also due to chronic laxity. Please correlate with physical exam . Consider CT if necessary. Reviewed by: Preston Kingston on 05/01/2022 2:05 PM RHIANNON Approved by: Preston Kingston on 05/01/2022 2:05 PM [facility] Station ID: [id number]
[2022-05-01 15:17] VITALS: BP 103/49
== END 2022-05-01 15:27 | disposition home or self-care (01) ==
LOC: ED 11:03
DX: M24.412 Recurrent dislocation, left shoulder (principal); M19.011 Primary osteoarthritis, right shoulder; L03.032 Cellulitis of left toe; E66.9 Obesity, unspecified; Z68.36 Body mass index [BMI] 36.0-36.9, adult; I10 Essential (primary) hypertension
CPT/HCPCS: 73660; 87070; 87181; 87205; 99283

== ENCOUNTER 2022-05-02 13:41 | Outpatient (CLI) | payer MEDICARE, BC | END 2022-05-02 23:59 | disposition critical access hospital (66) | LOC: EMS 13:41 | DX: L08.9 Local infection of the skin and subcutaneous tissue, unspecified (principal); M79.675 Pain in left toe(s); R42 Dizziness and giddiness | CPT/HCPCS: A0425; A0429 ==

== ENCOUNTER 2022-05-02 13:58 | Emergency (ER) | payer MEDICARE, BC ==
[2022-05-02] MEDS ORDERED: VANCOMYCIN INJ 2 GM in SODIUM CHLORIDE 0.9% 500 ML IV STA (14:11)
--- NOTE | 2022-05-02 14:14 | ED Physician Documentation ---
History of Present Illness - Stated complaint Stated Complaint: TOE/FOOT INFECTION - History obtained from History obtained from: Patient - Additonal information Additional information: 77-year-old woman was seen yesterday for shoulder issue and was noted that time to have cellulitis of the left second toe. She was cultured as there was some purulent drainage and placed on Augmentin. Since then it is gotten slightly worse. Still no fevers or chills. She is brought in by ambulance after a friend called the ambulance worried about her toe and worried that she might fall although she has not fallen since yesterday. In the interim review of the culture shows that it is growing staph. Review of Systems Ten Systems: 10 systems reviewed and negative Constitutional: denies: Fever, Chills Ears: reports: Reviewed and negative Cardiac: reports: Reviewed and negative Respiratory: reports: Reviewed and negative PD PAST MEDICAL HISTORY - Past Medical History Cardiovascular: Hypertension, Other Respiratory: Sleep apnea, CPAP use Neuro: None Endocrine/Autoimmune: None GI: GERD, Hiatal hernia COLOR MATCHER: None : None HEENT: None Psych: Depression Musculoskeletal: Osteoarthritis, Chronic back pain Derm: None - Past Surgical History Past Surgical History: Yes General: Cholecystectomy, Other Ortho: Other /COLOR MATCHER: section Cardiovascular: Cardiac catheterization - Present Medications Home Medications: Ambulatory Orders Medication Instructions Recorded Confirmed Escitalopram Oxalate [Lexapro] 20 mg PO DAILY 11/13/12 05/27/20 Spironolactone [Aldactone] 25 mg PO DAILY 11/13/12 05/27/20 Mag Carb/Al Hydrox/Alginic AC 15 - 30 ml PO AC PRN 01/16/13 05/27/20 [Gaviscon Extra Strength Liquid] Lidocaine [Lidoderm] 1 patch TOP Q12H PRN 02/14/14 05/27/20 HYDROcodone/ACET 10/325 [[place] 10 1 tab PO TID PRN 10/31/14 05/27/20 mg/325 mg] Fexofenadine HCl [Marcella Allergy] 180 mg PO DAILY PRN 11/06/15 05/27/20 Furosemide [Lasix] 40 mg PO DAILY 04/28/17 05/27/20 Ketoconazole 1 applic TP BID PRN 05/25/17 05/27/20 Oxybutynin Chloride [Ditropan Xl] 10 mg PO QPM 05/25/17 05/27/20 Ferrous Gluconate 240 mg PO QPM 09/01/17 05/27/20 Bran/Gum/Fib/Ct/Psyl/Kelp/Pec 3,000 mg PO QPM PRN 09/11/18 05/27/20 [Fiber 6 Tablet] Bupropion HCl [Wellbutrin Xl] 300 mg PO DAILY 09/11/18 05/27/20 Potassium Chloride 20 meq PO DAILY 09/11/18 05/27/20 Amoxicillin 2,000 mg PO ONCE PRN 05/27/20 05/27/20 Lansoprazole [Prevacid] 30 mg PO BIDAC 05/27/20 05/27/20 Lidocaine Viscous 2% [Xylocaine 10 ml PO BID PRN 05/27/20 05/27/20 Viscous 2%] Lidocaine [Rectasmoothe] 1 applic TOP BID 05/27/20 05/27/20 Losartan Potassium [Cozaar] 100 mg PO DAILY 05/27/20 05/27/20 Metoprolol Succinate [Toprol Xl] 200 mg PO DAILY 05/27/20 05/27/20 Naproxen Sodium [Aleve] 220 mg PO BID PRN 05/27/20 05/27/20 Nitroglycerin [Nitrostat] 0.4 mg SL Q5MIN PRN 05/27/20 05/27/20 Amox/Clav 875/125 [Augmentin] 1 each PO Q12H #20 tablet 05/01/22 clindamycin HCL [Cleocin HCl] 300 mg PO QID #28 cap 05/02/22 rifAMPin [Rifampin] 300 mg PO BID #14 cap 05/02/22 - Allergies Allergies/Adverse Reactions: Allergies Allergy/AdvReac Type Severity Reaction Status Date / Time adhesive Allergy Rash Verified 05/27/20 09:23 glycerin Allergy Itching Verified 05/27/20 09:23 - Social History Does the pt smoke?: No Smoking Status: Never smoker Does the pt drink ETOH?: No Does the pt have substance abuse?: No - Immunizations Immunizations are current?: Yes - POLST Patient has POLST: No PD ED PE NORMAL - Vitals Vital signs reviewed: Yes - General General: Alert and oriented X 3, No acute distress - HEENT HEENT: PERRL, EOMI - Neck Neck: Supple, no meningeal sign, No bony TTP - Back Back: No CVA TTP, No spinal TTP - Derm Derm: Normal color, Warm and dry - Extremities Extremities: Other (Slightly worsened cellulitis of the left second toe with a purulent ulcer dorsally which was debrided at the bedside and the patient tolerated this well. It was not recultured as it was cultured yesterday.) - Neuro Neuro: Alert and oriented X 3, Normal speech Results - Vitals Vitals: Vital Signs - 24 hr 05/02/22 05/02/22 05/02/22 14:08 16:13 16:59 Temperature 36.9 C Heart Rate 70 64 66 Respiratory 19 17 18 Rate Blood Pressure 111/49 L 128/80 117/93 H O2 Saturation 99 99 100 If not protocol 2 : Oxygen Flow, liters/minute Oxygen O2 Source Nasal cannula - Labs Labs: Laboratory Tests 05/02/22 05/02/22 05/02/22 14:23 14:23 14:23 WBC 7.0 RBC 4.31 Hgb 12.2 Hct 38.2 MCV 88.6 MCH 28.3 MCHC 31.9 L RDW 14.7 Plt Count 118 L MPV 9.8 Neut # (Auto) 5.1 Lymph # (Auto) 0.8 L [place] # (Auto) 0.9 Eos # (Auto) 0.1 Baso # (Auto) 0.0 Absolute Nucleated RBC 0.00 Nucleated RBC % 0.0 ESR 25 Sodium 136 Potassium 3.7 Chloride 102 Carbon Dioxide 28 Anion Gap 6.0 BUN 23 H Creatinine 1.2 H Estimated GFR (MDRD) 44 L Glucose 104 H Calcium 9.3 C-Reactive Protein 18.7 H PD MEDICAL DECISION MAKING - ED course ED course: 77-year-old woman with purulent cellulitis of the left second toe. X-ray yesterday did not show evidence of osteomyelitis. She has a normal white count and sed rate here with minimally elevated CRP. Given that she has staph we will switch her over to clindamycin and rifampin pending cultures, she did get an IV dose of vancomycin here. Departure - Departure Disposition: 01 Home, Self Care Clinical Impression: Cellulitis of toe of left foot Condition: Good Record reviewed to determine appropriate education?: Yes Instructions: Cellulitis Dc Prescriptions: clindamycin HCL [Cleocin HCl] 300 mg PO QID #28 cap rifAMPin [Rifampin] 300 mg PO BID #14 cap Comments: I sent your prescriptions to [facility] in [place]. You were seen today for a worsening of the left second toe infection. Blood work not suggesting a need for admission with normal white count and the culture from yesterday is growing staph. Given that it is reasonable to change her antibiotics to something that is generally more effective against staph and I am prescribing that, but formal sensitivities are pending and we may need to further adjust your antibiotics tomorrow or the next day. Follow-up with your doctor Wednesday for recheck. Discharge Date/Time: 05/02/22 17:18
[2022-05-02 14:42] LABS: BASOPHILS % (AUTO) 0.4 %; EOSINOPHILS # (AUTO) 0.1 10^3/uL (0.0-0.7); EOSINOPHILS % (AUTO) 1.4 %; HCT - HEMATOCRIT 38.2 % (37.0-47.0); HGB - HEMOGLOBIN 12.2 g/dL (12.0-16.0); LYMPHOCYTES # (AUTO) 0.8 10^3/uL (1.5-3.5); MEAN CORPUSCULAR HEMOGLOBIN 28.3 pg (27.0-31.0); MEAN CORPUSCULAR HGB CONC 31.9 g/dL (32.0-36.0); MEAN CORPUSCULAR VOLUME 88.6 fL (81.0-99.0); MEAN PLATELET VOLUME 9.8 fL (7.9-10.8); MONOCYTES # (AUTO) 0.9 10^3/uL (0.0-1.0); NEUTROPHILS # (AUTO) 5.1 10^3/uL (1.5-6.6); NEUTROPHILS % (AUTO) 73.8 %; PLT - PLATELET COUNT 118 10^3/uL (130-450); RED BLOOD COUNT 4.31 10^6/uL (4.20-5.40); RED CELL DISTRIBUTION WIDTH 14.7 % (12.0-15.0)
[2022-05-02 14:56] LABS: CALCIUM 9.3 mg/dL (8.5-10.3); CREATININE 1.2 mg/dL (0.4-1.0); CRP - C-REACTIVE PROTEIN 18.7 mg/dL (0-1.0); POTASSIUM 3.7 mmol/L (3.5-5.0)
[2022-05-02 17:01] VITALS: BP 117/93
== END 2022-05-02 17:18 | disposition home or self-care (01) ==
LOC: ED 13:58
DX: L03.032 Cellulitis of left toe (principal); B95.8 Unspecified staphylococcus as the cause of diseases classified elsewhere
CPT/HCPCS: 36415; 80048; 85025; 85651; 86140; 96365; 96366; 99282; 99284; J3370

== ENCOUNTER 2022-05-04 18:22 | Inpatient (IN) | payer MEDICARE, BC ==
--- NOTE | 2022-05-04 23:11 | ED Physician Documentation ---
History of Present Illness - Stated complaint Stated Complaint: L FOOT SWELLING,REDNESS 2ND INFECTION - Chief complaint Chief Complaint: Ext Problem - History obtained from History obtained from: Patient - History of Present Illness Timing: How many days ago (5) - Additonal information Additional information: Chrissie Mary is a 77y/o female with a history of COPD, morbid obesity, osteoarthritis, GERD, a remote history of cardiomyopathy and a remote history of non-Hodgkin's lymphoma treated with Rituxan. Last week she was at her podiatrists office and noted that she had a "spot" on the left second toe. She was prescribed antibiotic but may not have taken it. 4 days ago she had a pain in her toe that was severe and she had falls. She was seen in the ED and started on Augmentin for what appeared to be an infection in the second toe. At that time the toe was swollen and inflamed but nothing proximal to it. She was seen again for a fall the day after and preliminary culture grew staph and her antibiotic was changed from augmentin (she took one dose) to clindamycin and rifampin after receiving IV vancomycin. She returns tonight with worsening redne ss and swelling. She had x-ray done of the foot as well as blood work. Review of Systems Constitutional: denies: Fever Ears: denies: Ear pain Nose: denies: Congestion Throat: denies: Sore throat Cardiac: denies: Chest pain / pressure, Palpitations Respiratory: reports: Dyspnea (similar to always), Cough GI: denies: Abdominal Pain, Nausea, Vomiting, Constipation, Diarrhea : denies: Dysuria, Frequency Skin: denies: Rash Musculoskeletal: reports: Extremity pain, Pain with weight bearing. denies: Neck pain Neurologic: denies: Generalized weakness, Focal weakness, Numbness PD PAST MEDICAL HISTORY - Past Medical History Past Medical History: Yes Cardiovascular: Hypertension, Other Respiratory: Sleep apnea Neuro: None Endocrine/Autoimmune: None GI: GERD, Hiatal hernia GATE TECHNICIAN: None : None, Incontinence HEENT: None Psych: Depression Musculoskeletal: Osteoarthritis, Chronic back pain Derm: None - Past Surgical History Past Surgical History: Yes General: Cholecystectomy, Other Ortho: Other /GATE TECHNICIAN: section Cardiovascular: Cardiac catheterization - Present Medications Home Medications: Ambulatory Orders Medication Instructions Recorded Confirmed Escitalopram Oxalate [Lexapro] 20 mg PO DAILY 11/13/12 05/04/22 Spironolactone [Aldactone] 25 mg PO DAILY 11/13/12 05/04/22 Mag Carb/Al Hydrox/Alginic AC 15 - 30 ml PO AC PRN 01/16/13 05/04/22 [Gaviscon Extra Strength Liquid] Lidocaine [Lidoderm] 1 patch TOP Q12H PRN 02/14/14 05/04/22 HYDROcodone/ACET 10/325 [[place] 10 1 tab PO TID PRN 10/31/14 05/04/22 mg/325 mg] Fexofenadine HCl [Marcella Allergy] 180 mg PO DAILY PRN 11/06/15 05/04/22 Furosemide [Lasix] 40 mg PO DAILY 04/28/17 05/04/22 Ketoconazole 1 applic TP BID PRN 05/25/17 05/04/22 Oxybutynin Chloride [Ditropan Xl] 10 mg PO QPM 05/25/17 05/04/22 Ferrous Gluconate 240 mg PO QPM 09/01/17 05/04/22 Bran/Gum/Fib/Ct/Psyl/Kelp/Pec 3,000 mg PO QPM PRN 09/11/18 05/04/22 [Fiber 6 Tablet] Bupropion HCl [Wellbutrin Xl] 300 mg PO DAILY 09/11/18 05/04/22 Potassium Chloride 20 meq PO DAILY 09/11/18 05/04/22 Amoxicillin 2,000 mg PO ONCE PRN 05/27/20 05/04/22 Lansoprazole [Prevacid] 30 mg PO BIDAC 05/27/20 05/04/22 Lidocaine Viscous 2% [Xylocaine 10 ml PO BID PRN 05/27/20 05/04/22 Viscous 2%] Lidocaine [Rectasmoothe] 1 applic TOP BID 05/27/20 05/04/22 Losartan Potassium [Cozaar] 100 mg PO DAILY 05/27/20 05/04/22 Metoprolol Succinate [Toprol Xl] 200 mg PO DAILY 05/27/20 05/04/22 Naproxen Sodium [Aleve] 220 mg PO BID PRN 05/27/20 05/04/22 Nitroglycerin [Nitrostat] 0.4 mg SL Q5MIN PRN 05/27/20 05/04/22 Amox/Clav 875/125 [Augmentin] 1 each PO Q12H #20 tablet 05/01/22 05/04/22 clindamycin HCL [Cleocin HCl] 300 mg PO QID #28 cap 05/02/22 05/04/22 rifAMPin [Rifampin] 300 mg PO BID #14 cap 05/02/22 05/04/22 Cholecalciferol (Vitamin D3) 05/04/22 [Vitamin D3] - Allergies Allergies/Adverse Reactions: Allergies Allergy/AdvReac Type Severity Reaction Status Date / Time adhesive Allergy Rash Verified 05/04/22 22:25 glycerin Allergy Itching Verified 05/04/22 22:25 - Social History Does the pt smoke?: No Smoking Status: Never smoker Does the pt drink ETOH?: No Does the pt have substance abuse?: No - Immunizations Immunizations are current?: Yes - POLST Patient has POLST: No PD ED PE NORMAL - Vitals Vital signs reviewed: Yes (hypertensive ) - General General: Alert and oriented X 3, No acute distress, Well developed/nourished - HEENT HEENT: Atraumatic, PERRL, EOMI - Cardiac Cardiac: RRR, No murmur - Respiratory Respiratory: No respiratory distress, Other (diminished breath sounds ) - Abdomen Abdomen: Soft, Non tender, Other (obese) - Back Back: No CVA TTP, No spinal TTP - Derm Derm: Normal color, Warm and dry, No rash - Extremities Extremities: Other (The left second toe is swollen erythematous and dusky appearing. The dorsal surface over the middle phlange has ulceration and drainage. The erythema extends to the mid foot and there is some additional erythema to the mid calf. . ) - Neuro Neuro: Alert and oriented X 3, deckhand fishing vessel 2-12 intact, No motor deficit, No sensory deficit, Normal speech Eye Opening: Spontaneous Motor: Obeys Commands Verbal: Oriented GCS Score: 15 - Psych Psych: Normal mood, Normal affect Results - Vitals Vitals: Vital Signs - 24 hr 05/04/22 05/05/22 05/05/22 19:26 00:21 03:42 Temperature 36 C L 37 C 37 C Heart Rate 70 69 60 Respiratory 16 17 16 Rate Blood Pressure 135/106 H 144/84 H 135/63 H O2 Saturation 95 95 95 Oxygen O2 Source Room air - Labs Labs: Laboratory Tests 05/04/22 05/04/22 05/04/22 23:42 23:42 23:42 WBC 6.5 RBC 4.74 Hgb 13.2 Hct 41.6 MCV 87.8 MCH 27.8 MCHC 31.7 L RDW 14.6 Plt Count 161 MPV 9.0 Neut # (Auto) 3.3 Lymph # (Auto) 1.8 [place] # (Auto) 1.0 Eos # (Auto) 0.3 Baso # (Auto) 0.0 Absolute Nucleated RBC 0.00 Nucleated RBC % 0.0 ESR 44 H Sodium 139 Potassium 4.1 Chloride 99 L Carbon Dioxide 31 Anion Gap 9.0 BUN 29 H Creatinine 0.9 Estimated GFR (MDRD) 61 L Glucose 84 Calcium 9.5 Total Bilirubin 0.8 AST 37 ALT 43 Alkaline Phosphatase 106 C-Reactive Protein 9.2 H Total Protein 7.1 Albumin 3.6 Globulin 3.5 Albumin/Globulin Ratio 1.0 Lipase 30 Nasal Adenovirus (PCR) Nasal B. parapertussis DNA (PCR) Nasal Coronavir 229E PCR Nasal Coronavir HKU1 PCR Nasal Coronavir NL63 PCR Nasal Coronavir OC43 PCR Nasal Enterovir/Rhinovir PCR Nasal Influenza B PCR Nasal Influenza A PCR Nasal Parainfluen 1 PCR Nasal Parainfluen 2 PCR Nasal Parainfluen 3 PCR Nasal Parainfluen 4 PCR Nasal RSV (PCR) Nasal B.pertussis DNA PCR Nasal C.pneumoniae (PCR) Kimani Human Metapneumo PCR Nasal M.pneumoniae (PCR) Nasal SARS-CoV-2 (PCR) 05/05/22 06:03 WBC RBC Hgb Hct MCV MCH MCHC RDW Plt Count MPV Neut # (Auto) Lymph # (Auto) [place] # (Auto) Eos # (Auto) Baso # (Auto) Absolute Nucleated RBC Nucleated RBC % ESR Sodium Potassium Chloride Carbon Dioxide Anion Gap BUN Creatinine Estimated GFR (MDRD) Glucose Calcium Total Bilirubin AST ALT Alkaline Phosphatase C-Reactive Protein Total Protein Albumin Globulin Albumin/Globulin Ratio Lipase Nasal Adenovirus (PCR) NOT DETECTED Nasal B. parapertussis DNA (PCR) NOT DETECTED Nasal Coronavir 229E PCR NOT DETECTED Nasal Coronavir HKU1 PCR NOT DETECTED Nasal Coronavir NL63 PCR NOT DETECTED Nasal Coronavir OC43 PCR NOT DETECTED Nasal Enterovir/Rhinovir PCR NOT DETECTED Nasal Influenza B PCR NOT DETECTED Nasal Influenza A PCR NOT DETECTED Nasal Parainfluen 1 PCR NOT DETECTED Nasal Parainfluen 2 PCR NOT DETECTED Nasal Parainfluen 3 PCR NOT DETECTED Nasal Parainfluen 4 PCR NOT DETECTED Nasal RSV (PCR) NOT DETECTED Nasal B.pertussis DNA PCR NOT DETECTED Nasal C.pneumoniae (PCR) NOT DETECTED Kimani Human Metapneumo PCR NOT DETECTED Nasal M.pneumoniae (PCR) NOT DETECTED Nasal SARS-CoV-2 (PCR) NOT DETECTED - Rads (name of study) toes Radiology: Prelim report reviewed (Impression: 1. Oval lucency within the second middle phalanx is new or increased in prominence compared to the prior study. Findings are nonspecific but suspicious for a bony erosion and osteomyelitis given clinical history.), EMP read indepedently, See rad report PD MEDICAL DECISION MAKING - ED course Complexity details: reviewed old records, reviewed results, re-evaluated patient, considered differential, d/w patient, d/w contamination consultant (Mirandaan: ortho recommends least toxic treatment with prolonged antibiotic. Surgery not indicated at this point. Recommends treatment for failed outpaitent cellulitis and follow up in clinic when immproving. ) ED course: 77 y/o female with a developing osteomylitis of the left second toe presents to the ED with increased redness and spread of redness. She is failing outpatient management and has developed an area of the middle phlange that shows erosion of bone in the past 4 days. The etiology is likely osteomyltis. Today her WBC is improved as is her CRP but with elevation in the ESR. She is diagnosed with osteomylitis and an IV is begun and she is given a dose of vanco and cefepime. She will need further hospital services and admission is sought. We do not have beds available but we are expecting discharges today. Consultation with ortho indicates treatment of cellulitis with least toxic regimen and followup in clinic. He did review films as well. At this point treat as failed outpatient management of cellulitis. Departure - Departure Disposition: 66 [facility] DC/Xfer Clinical Impression: Osteomyelitis due to Staphylococcus aureus Condition: Serious
[2022-05-04] MEDS ORDERED: VANCOMYCIN INJ 1 GM in SODIUM CHLORIDE 0.9% 500 ML IV STA (23:18)
[2022-05-04] MEDS ORDERED: CEFEPIME 1 GM in SODIUM CHLORIDE 0.9% MINIBAG 100 ML IV STA (23:18)
[2022-05-04] MEDS ORDERED: VANCOMYCIN 1 GM VIAL ONE (23:23)
[2022-05-04 23:51] LABS: BASOPHILS % (AUTO) 0.5 %; EOSINOPHILS # (AUTO) 0.3 10^3/uL (0.0-0.7); EOSINOPHILS % (AUTO) 4.6 %; HCT - HEMATOCRIT 41.6 % (37.0-47.0); HGB - HEMOGLOBIN 13.2 g/dL (12.0-16.0); LYMPHOCYTES # (AUTO) 1.8 10^3/uL (1.5-3.5); LYMPHOCYTES % (AUTO) 28.1 %; MEAN CORPUSCULAR HEMOGLOBIN 27.8 pg (27.0-31.0); MEAN CORPUSCULAR HGB CONC 31.7 g/dL (32.0-36.0); MEAN CORPUSCULAR VOLUME 87.8 fL (81.0-99.0); MONOCYTES % (AUTO) 15.7 %; NEUTROPHILS # (AUTO) 3.3 10^3/uL (1.5-6.6); NEUTROPHILS % (AUTO) 50.6 %; PLT - PLATELET COUNT 161 10^3/uL (130-450); RED BLOOD COUNT 4.74 10^6/uL (4.20-5.40); RED CELL DISTRIBUTION WIDTH 14.6 % (12.0-15.0); WHITE BLOOD COUNT 6.5 x10^3/uL (4.8-10.8)
[2022-05-05 00:06] LABS: ALBUMIN 3.6 g/dL (3.2-5.5); BILIRUBIN,TOTAL 0.8 mg/dL (0.2-1.0); CALCIUM 9.5 mg/dL (8.5-10.3); CREATININE 0.9 mg/dL (0.4-1.0); CRP - C-REACTIVE PROTEIN 9.2 mg/dL (0-1.0); POTASSIUM 4.1 mmol/L (3.5-5.0); TOTAL PROTEIN 7.1 g/dL (6.7-8.2)
--- NOTE | 2022-05-05 01:09 | XRAY Report ---
PROCEDURE: Toe(s) LT INDICATIONS: 2nd toe cellulitis TECHNIQUE: AP view of the foot and 2 additional views of the second toe acquired. COMPARISON: 05/01/2022. FINDINGS: Bones: There is an oval lucency within the second middle phalanx which appears new or increased in pr ominence compared to the prior study. No periosteal reaction. No fractures or dislocations. No suspi cious bony lesions. Soft tissues: There is soft tissue swelling of the second toe. No suspicious soft tissue densities. IMPRESSION: 1. Oval lucency within the second middle phalanx is new or increased in prominence compared to the pr ior study. Findings are nonspecific but suspicious for a bony erosion and osteomyelitis given clinica l history. Reviewed by: Bairon Lopez MD on 05/05/2022 1:07 AM PST Approved by: Bairon Lopez MD on 05/05/2022 1:07 AM PST Station ID: [id number]
--- NOTE | 2022-05-05 05:07 | HISTORY & PHYSICAL EXAMINATION ---
Chief Complaint - Chief Complaint Chief Complaint: Left 2nd toe pain/swelling History of Present Illness - Admitted From Admitted From:: home - History Obtained From Exam Limitations: telemedicine - History of Present Illness HPI Comment/Other: Ms Mary is a 77 yo F with hx COPD, morbid obesity, osteoarthritis, GERD. History of non-Hodgkin's lymphoma treated with Rituxan. Pt presents with c/o L second toe pain, redness, swelling. Was first noted by podiatry last week, rx abx. It got worse and she was seen in ER started Augmentin, following day the cx grew staph and she was changed to clindamycin and rifampin, also received dose of IV vancomycin. Now with worsening pain and swelling, XR suspicious for osteomyelitis. No prior hx foot/toe infections. Pt follows with podiatry for ingrown toe nails. No hx DM. History - Past Medical History Cardiovascular: reports: Hypertension, Other Respiratory: reports: Sleep apnea Neuro: reports: None Endocrine/Autoimmune: reports: None GI: reports: GERD, Hiatal hernia KILN HAND: reports: None : reports: None, Incontinence HEENT: reports: None Psych: reports: Depression Musculoskeletal: reports: Osteoarthritis, Chronic back pain Derm: reports: None MRSA Hx?: Yes - Past Surgical History General: reports: Cholecystectomy, Other Ortho: reports: Other /KILN HAND: reports: section Cardiovascular: reports: Cardiac catheterization - Substance History Use: Uses substance without health or social issues: NONE - POLST Patient has POLST: No Meds/Allgy - Home Medications Home Medications: Ambulatory Orders Medication Instructions Recorded Confirmed Escitalopram Oxalate [Lexapro] 20 mg PO DAILY 11/13/12 05/04/22 Spironolactone [Aldactone] 25 mg PO DAILY 11/13/12 05/04/22 Mag Carb/Al Hydrox/Alginic AC 15 - 30 ml PO AC PRN 01/16/13 05/04/22 [Gaviscon Extra Strength Liquid] Lidocaine [Lidoderm] 1 patch TOP Q12H PRN 02/14/14 05/04/22 HYDROcodone/ACET 10/325 [[place] 10 1 tab PO TID PRN 10/31/14 05/04/22 mg/325 mg] Fexofenadine HCl [Marcella Allergy] 180 mg PO DAILY PRN 11/06/15 05/04/22 Furosemide [Lasix] 40 mg PO DAILY 04/28/17 05/04/22 Ketoconazole 1 applic TP BID PRN 05/25/17 05/04/22 Oxybutynin Chloride [Ditropan Xl] 10 mg PO QPM 05/25/17 05/04/22 Ferrous Gluconate 240 mg PO QPM 09/01/17 05/04/22 Bran/Gum/Fib/Ct/Psyl/Kelp/Pec 3,000 mg PO QPM PRN 09/11/18 05/04/22 [Fiber 6 Tablet] Bupropion HCl [Wellbutrin Xl] 300 mg PO DAILY 09/11/18 05/04/22 Potassium Chloride 20 meq PO DAILY 09/11/18 05/04/22 Amoxicillin 2,000 mg PO ONCE PRN 05/27/20 05/04/22 Lansoprazole [Prevacid] 30 mg PO BIDAC 05/27/20 05/04/22 Lidocaine Viscous 2% [Xylocaine 10 ml PO BID PRN 05/27/20 05/04/22 Viscous 2%] Lidocaine [Rectasmoothe] 1 applic TOP BID 05/27/20 05/04/22 Losartan Potassium [Cozaar] 100 mg PO DAILY 05/27/20 05/04/22 Metoprolol Succinate [Toprol Xl] 200 mg PO DAILY 05/27/20 05/04/22 Naproxen Sodium [Aleve] 220 mg PO BID PRN 05/27/20 05/04/22 Nitroglycerin [Nitrostat] 0.4 mg SL Q5MIN PRN 05/27/20 05/04/22 Amox/Clav 875/125 [Augmentin] 1 each PO Q12H #20 tablet 05/01/22 05/04/22 clindamycin HCL [Cleocin HCl] 300 mg PO QID #28 cap 05/02/22 05/04/22 rifAMPin [Rifampin] 300 mg PO BID #14 cap 05/02/22 05/04/22 Cholecalciferol (Vitamin D3) 05/04/22 [Vitamin D3] - Allergies Allergies/Adverse Reactions: Allergies Allergy/AdvReac Type Severity Reaction Status Date / Time adhesive Allergy Rash Verified 05/04/22 22:25 glycerin Allergy Itching Verified 05/04/22 22:25 Review of Systems - Constitutional Constitutional: reports: Fever (not since last week), Chills. denies: Fatigue, Weakness - Cardiovascular Cariovascular: reports: Chest pain (secondary to esophageal spasms, chronic) - Respiratory Respiratory: denies: Cough, Sputum production, Wheezing - Gastrointestinal Gastrointestinal: reports: Diarrhea (after taking augmentin). denies: Abdominal pain, Nausea, Vomiting - Genitourinary Genitourinary: denies: Dysuria, Frequency - Integumentary Integumentary: denies: Rash, Pruritis - Neurological Neurological: denies: General weakness, Focal weakness, Dizziness - All Other Systems All Other Systems: reports: Reviewed and negative Prior Level of Functionality: ambulatory without device ; using walker past week due to pain in foot Exam - Vital Signs Reviewed Vital Signs: Yes Vital Signs: Vital Signs x48h Temp Pulse Resp BP Pulse Ox 05/05/22 03:42 37 C 60 16 135/63 H 95 05/05/22 00:21 37 C 69 17 144/84 H 95 - Physical Exam General Appearance: positive: No acute distress, Alert Eyes Bilateral: positive: Normal inspection ENT: positive: ENT inspection nml Respiratory: positive: No respiratory distress Skin: positive: Color nml, No rash, Other (L second toe erythematous and swollen) Extremities: positive: Full ROM Neurologic/Psychiatric: positive: Oriented x3, Motor nml Conclusion/Plan - Lab Results Lab results reviewed: Yes Fish Bones: 05/04/22 23:42 05/04/22 23:42 - Diagnostic Imaging Results Diagnostic Imaging Results: positive: Prelim report reviewed - Other Other Results/Comments: Assessment/Plan: Left second toe osteomyelitis -Progressive over the past week -Continue broad spectrum abx (blood cx were not collected prior to abx in ER) -F/u wound cx from ER visit -Ortho consult (placed in EMR only) -Further imaging/plan pending orthopedics evaluation/consult -NPO -IV fluids for hydration -NWB LLE DVT ppx: SCDs for now in case of surgical intervention Full code Clinical telemedicine services delivered using interactive video audio telecommunications while the patient and the rendering provider were not in the same physical location.
[2022-05-05] MEDS ORDERED: SODIUM CHLORIDE FLUSH 0.9% 10 ML SYRINGE IVP PRN (05:28)
[2022-05-05] MEDS ORDERED: ONDANSETRON 4 MG/2 ML VIAL IVP PRN (05:28)
[2022-05-05] MEDS ORDERED: ACETAMINOPHEN 325 MG TABLET PO PRN (05:28)
[2022-05-05] MEDS ORDERED: SODIUM CHLORIDE 0.9% 1,000 ML IV SCH ×2 (06:00→10:53)
[2022-05-05 07:16] LABS: B. PARAPERTUSSIS- RESP PCR PAN NOT DETECTED; B. PERTUSSIS- RESP PCR PANEL NOT DETECTED; C. PNEUMONIAE- RESP PCR PANEL NOT DETECTED; CORONAVIRUS 229E-RESP PCR NOT DETECTED; CORONAVIRUS HKU1-RESP PCR NOT DETECTED; CORONAVIRUS NL63-RESP PCR NOT DETECTED; CORONAVIRUS OC43-RESP PCR NOT DETECTED; HUMAN METAPNEUMOVIRUS NOT DETECTED; INFLUENZA A- RESP PCR PANEL NOT DETECTED; INFLUENZA B - RESP PCR PANEL NOT DETECTED; M. PNEUMONIAE- RESP PCR PANEL NOT DETECTED; PARAINFLUENZA VIRUS 1 NOT DETECTED; PARAINFLUENZA VIRUS 2 NOT DETECTED; PARAINFLUENZA VIRUS 3 NOT DETECTED; PARAINFLUENZA VIRUS 4 NOT DETECTED; RHINOVIRUS/ENTEROVIRUS NOT DETECTED; RSV- RESP PCR PANEL NOT DETECTED; SARS-CoV-2 -RESP PCR PANEL NOT DETECTED
--- NOTE | 2022-05-05 09:47 | Ultrasound Report ---
PROCEDURE: Duplex Lwr Ext Arterial LT INDICATIONS: progressing left 2nd toe infection TECHNIQUE: Color and pulse Doppler interrogation was performed of the left lower extremity arterial system, with image documentation. COMPARISON: None FINDINGS: Common femoral artery: 129 cm/sec, with triphasic flow. Deep femoral artery: 38 cm/sec, with triphasic flow. Proximal superficial femoral artery: 135 cm/sec, with triphasic flow. Mid superficial femoral artery: 102 cm/sec, with triphasic flow. Distal superficial femoral artery: 89 cm/sec, with triphasic flow. Popliteal artery: 100 cm/sec, with triphasic flow. Posterior tibial artery: 95 cm/sec, with triphase flow. Anterior tibial artery/dorsalis pedis: 113/100 cm/sec, with monophasic flow. Bentley-scale imaging description: Mild scattered plaque. IMPRESSION: No hemodynamically significant stenosis. It is noted monophasic flow is noted in the dorsalis pedis. The above findings are concordant with preliminary report. Reviewed by: Indigo Rodriguez MD on 05/05/2022 9:46 AM PST Approved by: Indigo Rodriguez MD on 05/05/2022 9:46 AM PST Station ID: [id number]
[2022-05-05] MEDS ORDERED: CEFEPIME 1 GM in SODIUM CHLORIDE 0.9% MINIBAG 100 ML IV SCH (10:00)
[2022-05-05] MEDS ORDERED: MAGNESIUM CARBONATE PO PRN (10:46)
[2022-05-05] MEDS ORDERED: KETOCONAZOLE 2% CREAM 15 GM TUBE TOP PRN (10:46)
[2022-05-05] MEDS ORDERED: ALGINIC ACID PO PRN (10:46)
[2022-05-05] MEDS ORDERED: [UNRECOGNIZED DRUG - OTHER] PO PRN (10:46)
[2022-05-05] MEDS ORDERED: ALUMINUM HYDROXIDE PO PRN (10:46)
[2022-05-05] MEDS ORDERED: LIDOCAINE PATCH 5% TOP PRN (10:46)
[2022-05-05] MEDS ORDERED: NITROGLYCERIN SL 0.4 MG TABLET SL PRN (10:46)
[2022-05-05] MEDS ORDERED: HYDROcod/ACETAM 10 MG/325 MG TABLET PO PRN (10:46)
[2022-05-05] MEDS ORDERED: LORATADINE 10 MG TABLET PO PRN (11:14)
[2022-05-05] MEDS ORDERED: NAPROXEN 250 MG TABLET PO PRN (11:17)
[2022-05-05] MEDS ORDERED: ceFAZolin 1 GM VIAL IVP SCH (12:00)
[2022-05-05] MEDS: SPIRONOLACTONE 25 MG TABLET PO SCH (13:37)
[2022-05-05] MEDS: SODIUM CHLORIDE FLUSH 0.9% 10 ML SYRINGE IVP SCH ×2 (13:37→17:05)
[2022-05-05] MEDS: ceFAZolin 2 GM/50 ML 2 GM/50 ML BAG IV SCH ×2 (13:37→20:21)
[2022-05-05] MEDS: LANSOPRAZOLE 15 MG CAPSULE PO SCH (18:32)
[2022-05-05] MEDS ORDERED: [UNRECOGNIZED DRUG - OTHER] PO PRN (20:00)
[2022-05-05] MEDS: SOLIFENACIN SUCCINATE 10 MG TABLET PO SCH (21:21)
[2022-05-05] MEDS: FERROUS GLUCONATE 324 MG TABLET PO SCH (21:24)
[2022-05-05] MEDS: LOPERAMIDE 2 MG CAPSULE PO PRN (22:33)
[2022-05-06] MEDS ORDERED: VANCOMYCIN INJ 2 GM in SODIUM CHLORIDE 0.9% 500 ML IV STA (00:37)
[2022-05-06] MEDS: SODIUM CHLORIDE FLUSH 0.9% 10 ML SYRINGE IVP SCH ×3 (01:03→16:01)
[2022-05-06] MEDS: ceFAZolin 2 GM/50 ML 2 GM/50 ML BAG IV SCH ×3 (03:55→20:21)
[2022-05-06 06:10] LABS: BASOPHILS % (AUTO) 0.5 %; EOSINOPHILS # (AUTO) 0.3 10^3/uL (0.0-0.7); EOSINOPHILS % (AUTO) 4.4 %; HCT - HEMATOCRIT 37.5 % (37.0-47.0); LYMPHOCYTES # (AUTO) 1.8 10^3/uL (1.5-3.5); LYMPHOCYTES % (AUTO) 23.9 %; MEAN CORPUSCULAR VOLUME 87.6 fL (81.0-99.0); MEAN PLATELET VOLUME 9.2 fL (7.9-10.8); MONOCYTES # (AUTO) 0.9 10^3/uL (0.0-1.0); MONOCYTES % (AUTO) 12.3 %; NEUTROPHILS # (AUTO) 4.3 10^3/uL (1.5-6.6); NEUTROPHILS % (AUTO) 58.4 %; PLT - PLATELET COUNT 162 10^3/uL (130-450); RED BLOOD COUNT 4.28 10^6/uL (4.20-5.40); RED CELL DISTRIBUTION WIDTH 14.6 % (12.0-15.0); WHITE BLOOD COUNT 7.3 x10^3/uL (4.8-10.8)
[2022-05-06 06:20] LABS: CREATININE 0.8 mg/dL (0.4-1.0); POTASSIUM 3.5 mmol/L (3.5-5.0)
[2022-05-06] MEDS: LANSOPRAZOLE 15 MG CAPSULE PO SCH ×2 (07:53→16:04)
[2022-05-06] MEDS: FUROSEMIDE 40 MG TABLET PO SCH (09:02)
[2022-05-06] MEDS: METOPROLOL SUCCINATE 50 MG TABLET PO SCH (09:02)
[2022-05-06] MEDS: ESCITALOPRAM 10 MG TABLET PO SCH (09:02)
[2022-05-06] MEDS: buPROPion XL 150 MG TABLET PO SCH (09:02)
[2022-05-06] MEDS: LOSARTAN 50 MG TABLET PO SCH (09:02)
[2022-05-06] MEDS: POTASSIUM CHLORIDE 20 MEQ TABLET PO SCH (09:02)
[2022-05-06] MEDS: SPIRONOLACTONE 25 MG TABLET PO SCH (09:02)
[2022-05-06] MEDS: LOPERAMIDE 2 MG CAPSULE PO PRN (10:43)
--- NOTE | 2022-05-06 18:09 | PROVIDER PROGRESS NOTE ---
Assessment/Plan - Problem List (1) Osteomyelitis of toe of left foot Assessment/Plan: Left second toe became progressive worse over the past week. Failing outpatient management and has developed an area of the middle phlange that shows erosion of bone, this is over the past 4 days. Foot XRays were read out as having a lucency in the bone. The etiology is likely osteomyelitis. Result of wound cx from ER visit has grown Staph aureus (MSSA), and sensitivities are back. Pharmacy has advised stopping Vanco and Cefepime and starting iv Cefazolin 2g iv q8h. Plan: - Continue Cefazolin - Blood cx were not collected prior to abx given in ER, unfortunately - follow WBC and ESR daily - Ortho consult was ordered by Telemedicine night doctor for ortho input - Further imaging/plan pending orthopedics evaluation/consult - NWB LLE and will order PT and OT evals for planning DCh and location 2) HTN We have resumed all her usual meds from reconciled med list 3) COPD No exacerbation currently. Plan: Continue with her usual medications, once the medication list is reconciled 4) Morbid obesity with BMI 40-49 As per Hx 5) Osteoarthritis Plan: We will continue pain meds and anti-inflammatory meds as 6) GERD Plan:Continue with her usual medications, once the medication list is reconciled 7) History of non-Hodgkin's lymphoma She is treated with Rituxan. Plan: Following CBC daily - Current Meds Current Meds: Current Medications Generic Name Dose Route Start Last Admin Trade Name Freq PRN Reason Stop Dose Admin Hydrocodone Bitart/Acetaminophen 1 tab 05/05/22 10:46 05/06/22 09:02 Hydrocod/Acetam 10 Mg/325 Mg Tablet PO 1 tab TID PRN Administration PAIN Bupropion HCl 300 mg 05/06/22 09:00 05/06/22 09:02 Bupropion Xl 150 Mg Tablet PO 300 mg DAILY KARI Administration Escitalopram Oxalate 20 mg 05/06/22 09:00 05/06/22 09:02 Escitalopram 10 Mg Tablet PO 20 mg DAILY KARI Administration Ferrous Gluconate 324 mg 05/05/22 21:00 05/05/22 21:24 Ferrous Gluconate 324 Mg Tablet PO Not Given QPM KARI Furosemide 40 mg 05/06/22 09:00 05/06/22 09:02 Furosemide 40 Mg Tablet PO 40 mg DAILY KARI Administration Sodium Chloride 1,000 mls @ 40 mls/hr 05/05/22 10:53 05/05/22 13:37 Normal Saline 0.9% IV 40 mls/hr .Q25H KARI Administration Cefazolin Sodium/Dextrose 2 gm in 50 mls @ 100 mls/hr 05/05/22 12:00 05/06/22 14:40 Ancef 2 Gm/50 Ml IV Infused Q8H KARI Infusion Lansoprazole 30 mg 05/05/22 16:00 05/06/22 16:04 Lansoprazole 15 Mg Capsule PO 30 mg BIDAC KARI Administration Loperamide HCl 2 mg 05/05/22 21:28 05/06/22 10:43 Loperamide 2 Mg Capsule PO 2 mg Q6H PRN Administration Diarrhea Losartan Potassium 100 mg 05/06/22 09:00 05/06/22 09:02 Losartan 50 Mg Tablet PO 100 mg DAILY KARI Administration Metoprolol Succinate 200 mg 05/06/22 09:00 05/06/22 09:02 Metoprolol Succinate 50 Mg Tablet PO 200 mg DAILY KARI Administration Potassium Chloride 20 meq 05/06/22 08:00 05/06/22 09:02 Potassium Chloride 20 Meq Tablet PO 20 meq DAILYWM KARI Administration Sodium Chloride 10 ml 05/05/22 09:00 05/06/22 16:01 Sodium Chloride Flush 0.9% 10 Ml Syringe IVP Not Given 0100,0900,1700 KARI Solifenacin 10 mg 05/05/22 21:00 05/05/22 21:21 Solifenacin Succinate 10 Mg Tablet PO 10 mg QPM KARI Administration Spironolactone 25 mg 05/05/22 10:51 05/06/22 09:02 Spironolactone 25 Mg Tablet PO 25 mg DAILY KARI Administration - Lab Result Fish Bone Diagrams: 05/06/22 06:06 05/06/22 06:06 - Additional Planning My Orders: My Active Orders 05/05/22 21:00 Ferrous Gluconate [Fergon] 324 mg PO QPM Solifenacin Succinate [Vesicare] 10 mg PO QPM 05/06/22 08:00 Potassium Chloride [K-Dur] 20 meq PO DAILYWM 05/06/22 09:00 Escitalopram [Lexapro] 20 mg PO DAILY Furosemide [Lasix] 40 mg PO DAILY Losartan [Cozaar] 100 mg PO DAILY Metoprolol Succinate [Toprol Xl] 200 mg PO DAILY buPROPion [Wellbutrin Xl] 300 mg PO DAILY 05/07/22 05:00 BMP - BASIC METABOLIC PANEL [CHEM] DAILYLAB CBC - COMP BLD CT W/AUTO DIFF [HEME] DAILYLAB 05/08/22 05:00 BMP - BASIC METABOLIC PANEL [CHEM] DAILYLAB CBC - COMP BLD CT W/AUTO DIFF [HEME] DAILYLAB 05/09/22 05:00 BMP - BASIC METABOLIC PANEL [CHEM] DAILYLAB CBC - COMP BLD CT W/AUTO DIFF [HEME] DAILYLAB Subjective - Subjective Patient Reports: Resting Comfortably Objective Vital Signs: Vital Signs - 24 hr 05/05/22 05/05/22 05/05/22 19:29 20:29 21:51 Temperature 36.2 C L Heart Rate 65 Respiratory 17 16 18 Rate Blood Pressure 135/59 H O2 Saturation 94 05/06/22 05/06/22 05/06/22 00:12 01:02 03:28 Temperature Heart Rate 81 Respiratory 16 16 17 Rate Blood Pressure 130/89 H O2 Saturation 94 05/06/22 05/06/22 05/06/22 05:00 06:38 09:04 Temperature 36.6 C 37.1 C Heart Rate 75 75 Respiratory 16 14 18 Rate Blood Pressure 112/75 123/51 L O2 Saturation 99 93 05/06/22 15:38 Temperature 36.8 C Heart Rate 70 Respiratory 16 Rate Blood Pressure 134/65 H O2 Saturation 95 Oxygen O2 Source Room air I&O (Last 24 Hrs): Intake and Output Totals x24h 05/04/22 05/05/22 05/06/22 23:59 23:59 23:59 Intake Total 1700 600 Balance 1700 600 General: Alert, Oriented x3, Other (Morbdly obese WF, supine in bed, in no distress) HEENT: Mucous membr. moist/pink Neck: Other (Obese and cannot evaluate JVP) Neuro: Alert, Non Focal Cardiovascular: Other (Distant heart sounds due to morbid obesity) Respiratory: No respiratory distress Abdomen: Soft, Other (Obese with a pannus) Extremities: Other (bandaged foot and toes) - Results Results: Laboratory Results WBC 7.3 x10^3/uL (4.8-10.8) 05/06/22 06:06 RBC 4.28 10^6/uL (4.20-5.40) 05/06/22 06:06 Hgb 12.0 g/dL (12.0-16.0) 05/06/22 06:06 Hct 37.5 % (37.0-47.0) 05/06/22 06:06 MCV 87.6 fL (81.0-99.0) 05/06/22 06:06 MCH 28.0 pg (27.0-31.0) 05/06/22 06:06 MCHC 32.0 g/dL (32.0-36.0) 05/06/22 06:06 RDW 14.6 % (12.0-15.0) 05/06/22 06:06 Plt Count 162 10^3/uL (130-450) 05/06/22 06:06 MPV 9.2 fL (7.9-10.8) 05/06/22 06:06 Neut # (Auto) 4.3 10^3/uL (1.5-6.6) 05/06/22 06:06 Lymph # (Auto) 1.8 10^3/uL (1.5-3.5) 05/06/22 06:06 [place] # (Auto) 0.9 10^3/uL (0.0-1.0) 05/06/22 06:06 Eos # (Auto) 0.3 10^3/uL (0.0-0.7) 05/06/22 06:06 Baso # (Auto) 0.0 10^3/uL (0.0-0.1) 05/06/22 06:06 Absolute Nucleated RBC 0.00 x10^3/uL 05/06/22 06:06 Nucleated RBC % 0.0 /100WBC 05/06/22 06:06 ESR 44 mm/Hr (0-30) H 05/04/22 23:42 Sodium 140 mmol/L (135-145) 05/06/22 06:06 Potassium 3.5 mmol/L (3.5-5.0) 05/06/22 06:06 Chloride 104 mmol/L (101-111) 05/06/22 06:06 Carbon Dioxide 28 mmol/L (21-32) 05/06/22 06:06 Anion Gap 8.0 (6-13) 05/06/22 06:06 BUN 21 mg/dL (6-20) H 05/06/22 06:06 Creatinine 0.8 mg/dL (0.4-1.0) 05/06/22 06:06 Estimated GFR (MDRD) 70 (>89) L 05/06/22 06:06 Glucose 102 mg/dL (70-100) H 05/06/22 06:06 Calcium 9.0 mg/dL (8.5-10.3) 05/06/22 06:06 Total Bilirubin 0.8 mg/dL (0.2-1.0) 05/04/22 23:42 AST 37 IU/L (10-42) 05/04/22 23:42 ALT 43 IU/L (10-60) 05/04/22 23:42 Alkaline Phosphatase 106 IU/L (42-121) 05/04/22 23:42 C-Reactive Protein 9.2 mg/dL (0-1.0) H 05/04/22 23:42 Total Protein 7.1 g/dL (6.7-8.2) 05/04/22 23:42 Albumin 3.6 g/dL (3.2-5.5) 05/04/22 23:42 Globulin 3.5 g/dL (2.1-4.2) 05/04/22 23:42 Albumin/Globulin Ratio 1.0 (1.0-2.2) 05/04/22 23:42 Lipase 30 U/L (22-51) 05/04/22 23:42 Nasal Adenovirus (PCR) NOT DETECTED 05/05/22 06:03 Nasal B. parapertussis DNA (PCR) NOT DETECTED 05/05/22 06:03 Nasal Coronavir 229E PCR NOT DETECTED 05/05/22 06:03 Nasal Coronavir HKU1 PCR NOT DETECTED 05/05/22 06:03 Nasal Coronavir NL63 PCR NOT DETECTED 05/05/22 06:03 Nasal Coronavir OC43 PCR NOT DETECTED 05/05/22 06:03 Nasal Enterovir/Rhinovir PCR NOT DETECTED 05/05/22 06:03 Nasal Influenza B PCR NOT DETECTED 05/05/22 06:03 Nasal Influenza A PCR NOT DETECTED 05/05/22 06:03 Nasal Parainfluen 1 PCR NOT DETECTED 05/05/22 06:03 Nasal Parainfluen 2 PCR NOT DETECTED 05/05/22 06:03 Nasal Parainfluen 3 PCR NOT DETECTED 05/05/22 06:03 Nasal Parainfluen 4 PCR NOT DETECTED 05/05/22 06:03 Nasal RSV (PCR) NOT DETECTED 05/05/22 06:03 Nasal B.pertussis DNA PCR NOT DETECTED 05/05/22 06:03 Nasal C.pneumoniae (PCR) NOT DETECTED 05/05/22 06:03 Kimani Human Metapneumo PCR NOT DETECTED 05/05/22 06:03 Nasal M.pneumoniae (PCR) NOT DETECTED 05/05/22 06:03 Nasal SARS-CoV-2 (PCR) NOT DETECTED 05/05/22 06:03 - Procedures Procedures: Procedures INCIS W REM OF FORIEGN BODY OR DEV FROM SKIN & SUBCUT TISSUE (06/05/13) INSERTION OF INFUSION DEV INTO R SUBCLAV VEIN, PERC APPROACH (05/27/20) THORAX SFT TISS XRAY NEC (06/05/13) VENOUS CATHETERIZATION NEC (06/05/13)
[2022-05-06] MEDS: SODIUM CHLORIDE 0.9% 1,000 ML IV SCH (18:29)
[2022-05-06] MEDS: FERROUS GLUCONATE 324 MG TABLET PO SCH (21:31)
[2022-05-06] MEDS: SOLIFENACIN SUCCINATE 10 MG TABLET PO SCH (21:31)
[2022-05-07] MEDS: HYDROcod/ACETAM 5/325 MG TABLET PO PRN ×2 (00:17→05:23)
[2022-05-07] MEDS: SODIUM CHLORIDE FLUSH 0.9% 10 ML SYRINGE IVP SCH ×3 (00:26→17:32)
[2022-05-07] MEDS: ceFAZolin 2 GM/50 ML 2 GM/50 ML BAG IV SCH ×3 (03:50→20:06)
[2022-05-07] MEDS: LOPERAMIDE 2 MG CAPSULE PO PRN ×2 (05:23→12:25)
[2022-05-07] MEDS: hydrOXYzine PAMOATE 25 MG CAPSULE PO PRN ×3 (05:23→21:13)
[2022-05-07] MEDS: LANSOPRAZOLE 15 MG CAPSULE PO SCH ×2 (05:25→17:32)
[2022-05-07 05:29] LABS: BASOPHILS # (AUTO) 0.1 10^3/uL (0.0-0.1); BASOPHILS % (AUTO) 0.6 %; EOSINOPHILS # (AUTO) 0.4 10^3/uL (0.0-0.7); HCT - HEMATOCRIT 37.1 % (37.0-47.0); HGB - HEMOGLOBIN 11.8 g/dL (12.0-16.0); LYMPHOCYTES # (AUTO) 2.2 10^3/uL (1.5-3.5); LYMPHOCYTES % (AUTO) 22.4 %; MEAN CORPUSCULAR HGB CONC 31.8 g/dL (32.0-36.0); MEAN CORPUSCULAR VOLUME 88.1 fL (81.0-99.0); MEAN PLATELET VOLUME 9.6 fL (7.9-10.8); MONOCYTES % (AUTO) 10.2 %; NEUTROPHILS # (AUTO) 5.9 10^3/uL (1.5-6.6); NEUTROPHILS % (AUTO) 61.3 %; PLT - PLATELET COUNT 191 10^3/uL (130-450); RED BLOOD COUNT 4.21 10^6/uL (4.20-5.40); RED CELL DISTRIBUTION WIDTH 14.5 % (12.0-15.0); WHITE BLOOD COUNT 9.7 x10^3/uL (4.8-10.8)
[2022-05-07 05:39] LABS: CALCIUM 8.9 mg/dL (8.5-10.3); CREATININE 0.9 mg/dL (0.4-1.0); POTASSIUM 3.5 mmol/L (3.5-5.0)
[2022-05-07] MEDS: buPROPion XL 150 MG TABLET PO SCH (08:05)
[2022-05-07] MEDS: FUROSEMIDE 40 MG TABLET PO SCH (08:05)
[2022-05-07] MEDS: POTASSIUM CHLORIDE 20 MEQ TABLET PO SCH (08:05)
[2022-05-07] MEDS: ESCITALOPRAM 10 MG TABLET PO SCH (08:05)
[2022-05-07] MEDS: SPIRONOLACTONE 25 MG TABLET PO SCH (08:05)
[2022-05-07] MEDS: METOPROLOL SUCCINATE 50 MG TABLET PO SCH (08:05)
[2022-05-07] MEDS: LOSARTAN 50 MG TABLET PO SCH (08:05)
[2022-05-07] MEDS ORDERED: PSYLLIUM PACKET PO PRN (11:26)
[2022-05-07] MEDS: HYDROcod/ACETAM 10 MG/325 MG TABLET PO PRN ×2 (12:26→21:14)
--- NOTE | 2022-05-07 12:59 | PHARMACY PROGRESS NOTE ---
- Best Possible Medication History Admit Date and Time: 05/06/22 5514 Processed by: Pharmacy Medication History completed: Yes Patient Interview: Completed Secondary Source(s): Written medication list, Pharmacy records (Pt had list. Goes to [facility] and [facility]) As the person ultimately responsible for medication therapy, providers are able to order a medication from an existing home medication list in [facility] via the "Reconcile Routine" prior to Confirmation of that medication by product support technician. Such practice is discouraged except when the physician, in their clinical judgment, deems that a medical need exists for a medication without regard to previous use.
--- NOTE | 2022-05-07 18:09 | PROVIDER PROGRESS NOTE ---
Assessment/Plan - Problem List (1) Osteomyelitis of toe of left foot Assessment/Plan: Left second toe became progressive worse over the past week. Failing outpatient oral antibx management, she has developed an area of the 2nd left toe that shows erosion of bone (foot XRays were read out as having a lucency in the bone). The etiology is likely osteomyelitis. Blood cx were not collected prior to abx given in ER, unfortunately Result of wound cx from a prior ER visit has grown Staph aureus (MSSA), and se nsitivities are back. Pharmacy has advised stopping Vanco and Cefepime and starting iv Cefazolin 2g iv q8h which was done 2 days ago. ESR has decreased since on iv antibx Plan: Continue iv Cefazolin Cont following WBC (which has been normal however, probabkly due to her lymphoma) and following ESR daily Pain meds as needed Ortho consult was ordered by Telemedicine night doctor for ortho input. I called Dr Wood today and he said he is not available today or for the next 4 days. Therefore, I contacted ER provider Dr Irene, who saw her for her 2 prior recent ER visits, and he saw the progression. He evaluated her in her bed here and said the soft tissue swelling and redness are better, but the necrotic center looks the same. He advised wet to dry dressing changes b.i.d. for some debridement, and to consider changing to oral antibiotics (using Bactrim and Rifampin, which this Staph areus is sens to), and DCh on those oral antibx if no worse ESR or exam. Then she would need an elective procedure done by Ortho as an outpt. NWB LLE and will order PT and OT evals for planning DCh. 2) HTN We have resumed all her usual meds from reconciled med list 3) COPD No exacerbation currently. Plan: Continue with her usual medications, once the medication list is reconciled 4) Morbid obesity with BMI 40-49 As per Hx 5) Osteoarthritis Plan: We will continue pain meds and anti-inflammatory meds as 6) GERD Plan:Continue with her usual medications, once the medication list is reconciled 7) History of non-Hodgkin's lymphoma She is treated with Rituxan. Plan: Following CBC daily - Current Meds Current Meds: Current Medications Generic Name Dose Route Start Last Admin Trade Name Freq PRN Reason Stop Dose Admin Hydrocodone Bitart/Acetaminophen 1 tab 05/05/22 05:28 05/07/22 05:23 Hydrocod/Acetam 5/325 Mg Tablet PO 1 tab Q4HR PRN Administration Pain 5 to 7 Hydrocodone Bitart/Acetaminophen 1 tab 05/07/22 11:32 05/07/22 12:26 Hydrocod/Acetam 10 Mg/325 Mg Tablet PO 1 tab TID PRN Administration PAIN >8 Bupropion HCl 300 mg 05/06/22 09:00 05/07/22 08:05 Bupropion Xl 150 Mg Tablet PO 300 mg DAILY KARI Administration Escitalopram Oxalate 20 mg 05/06/22 09:00 05/07/22 08:05 Escitalopram 10 Mg Tablet PO 20 mg DAILY KARI Administration Ferrous Gluconate 324 mg 05/05/22 21:00 05/06/22 21:31 Ferrous Gluconate 324 Mg Tablet PO 324 mg QPM KARI Administration Furosemide 40 mg 05/06/22 09:00 05/07/22 08:05 Furosemide 40 Mg Tablet PO 40 mg DAILY KARI Administration Hydroxyzine Pamoate 25 mg 05/06/22 15:06 05/07/22 12:26 Hydroxyzine Pamoate 25 Mg Capsule PO 25 mg Q6H PRN Administration Anxiety Cefazolin Sodium/Dextrose 2 gm in 50 mls @ 100 mls/hr 05/05/22 12:00 05/07/22 12:22 Ancef 2 Gm/50 Ml IV Infused Q8H KARI Infusion Sodium Chloride 1,000 mls @ 40 mls/hr 05/06/22 18:27 05/06/22 18:29 Normal Saline 0.9% IV 40 mls/hr .Q25H KARI Administration TKO Lansoprazole 30 mg 05/05/22 16:00 05/07/22 17:32 Lansoprazole 15 Mg Capsule PO 30 mg BIDAC KARI Administration Loperamide HCl 2 mg 05/05/22 21:28 05/07/22 12:25 Loperamide 2 Mg Capsule PO 2 mg Q6H PRN Administration Diarrhea Losartan Potassium 100 mg 05/06/22 09:00 05/07/22 08:05 Losartan 50 Mg Tablet PO 100 mg DAILY KARI Administration Metoprolol Succinate 200 mg 05/06/22 09:00 05/07/22 08:05 Metoprolol Succinate 50 Mg Tablet PO 200 mg DAILY KARI Administration Potassium Chloride 20 meq 05/06/22 08:00 05/07/22 08:05 Potassium Chloride 20 Meq Tablet PO 20 meq DAILYWM KARI Administration Sodium Chloride 10 ml 05/05/22 09:00 05/07/22 17:32 Sodium Chloride Flush 0.9% 10 Ml Syringe IVP Not Given 0100,0900,1700 KARI Solifenacin 10 mg 05/05/22 21:00 05/06/22 21:31 Solifenacin Succinate 10 Mg Tablet PO 10 mg QPM KARI Administration Spironolactone 25 mg 05/05/22 10:51 05/07/22 08:05 Spironolactone 25 Mg Tablet PO 25 mg DAILY KARI Administration - Lab Result Fish Bone Diagrams: 05/07/22 05:09 05/07/22 05:09 - Additional Planning My Orders: My Active Orders 05/06/22 18:27 Sodium Chloride 0.9% [Normal Saline 0.9%] 1,000 ml IV TKO 05/07/22 11:26 Psyllium [Metamucil] 1 packet PO DAILY PRN 05/07/22 11:32 HYDROcodone/ACET 10/325 [Gage 10 mg/325 mg] 1 tab PO TID PRN 05/08/22 05:00 BMP - BASIC METABOLIC PANEL [CHEM] DAILYLAB CBC - COMP BLD CT W/AUTO DIFF [HEME] DAILYLAB ESR- ERYTHROCYTE SEDIMENT RATE [HEME] DAILYLAB 05/09/22 05:00 BMP - BASIC METABOLIC PANEL [CHEM] DAILYLAB CBC - COMP BLD CT W/AUTO DIFF [HEME] DAILYLAB Subjective - Subjective Patient Reports: Resting Comfortably, Pain (in L 2nd toe. After I removed dressing today, pt said the swelling is noticably less.) Objective Vital Signs: Vital Signs - 24 hr 05/06/22 05/07/22 05/07/22 18:00 00:00 07:36 Temperature 37.0 C 37.1 C 36.6 C Heart Rate [ 66 65 65 Brachial] Respiratory 24 16 18 Rate Blood Pressure 129/50 L 134/53 H 125/49 L [Right Brachial artery] O2 Saturation 96 94 92 05/07/22 05/07/22 11:47 15:56 Temperature 36.9 C 36.7 C Heart Rate [ 66 65 Brachial] Respiratory 18 20 Rate Blood Pressure 121/68 109/57 L [Right Brachial artery] O2 Saturation 92 94 Oxygen O2 Source Room air I&O (Last 24 Hrs): Intake and Output Totals x24h 05/05/22 05/06/22 05/07/22 23:59 23:59 23:59 Intake Total 1700 1710 1060 Balance 1700 1710 1060 General: Alert, Oriented x3, Other (Morbidly obese, patchy alopecia) HEENT: Mucous membr. moist/pink Neuro: Alert, Non Focal Cardiovascular: Regular rate Respiratory: No respiratory distress Abdomen: Soft, Other (Obese with pannus) Extremities: No edema, Other (L 2nd toe is tender, red, not swollen, no streaking up the dorsum of foot. Middle of 2nd toe on dorsal surface, has open wound with pus.) - Results Results: Laboratory Results WBC 9.7 x10^3/uL (4.8-10.8) 05/07/22 05:09 RBC 4.21 10^6/uL (4.20-5.40) 05/07/22 05:09 Hgb 11.8 g/dL (12.0-16.0) L 05/07/22 05:09 Hct 37.1 % (37.0-47.0) 05/07/22 05:09 MCV 88.1 fL (81.0-99.0) 05/07/22 05:09 MCH 28.0 pg (27.0-31.0) 05/07/22 05:09 MCHC 31.8 g/dL (32.0-36.0) L 05/07/22 05:09 RDW 14.5 % (12.0-15.0) 05/07/22 05:09 Plt Count 191 10^3/uL (130-450) 05/07/22 05:09 MPV 9.6 fL (7.9-10.8) 05/07/22 05:09 Neut # (Auto) 5.9 10^3/uL (1.5-6.6) 05/07/22 05:09 Lymph # (Auto) 2.2 10^3/uL (1.5-3.5) 05/07/22 05:09 [place] # (Auto) 1.0 10^3/uL (0.0-1.0) 05/07/22 05:09 Eos # (Auto) 0.4 10^3/uL (0.0-0.7) 05/07/22 05:09 Baso # (Auto) 0.1 10^3/uL (0.0-0.1) 05/07/22 05:09 Absolute Nucleated RBC 0.00 x10^3/uL 05/07/22 05:09 Nucleated RBC % 0.0 /100WBC 05/07/22 05:09 ESR 23 mm/Hr (0-30) 05/07/22 05:09 Sodium 138 mmol/L (135-145) 05/07/22 05:09 Potassium 3.5 mmol/L (3.5-5.0) 05/07/22 05:09 Chloride 103 mmol/L (101-111) 05/07/22 05:09 Carbon Dioxide 27 mmol/L (21-32) 05/07/22 05:09 Anion Gap 8.0 (6-13) 05/07/22 05:09 BUN 24 mg/dL (6-20) H 05/07/22 05:09 Creatinine 0.9 mg/dL (0.4-1.0) 05/07/22 05:09 Estimated GFR (MDRD) 61 (>89) L 05/07/22 05:09 Glucose 95 mg/dL (70-100) 05/07/22 05:09 Calcium 8.9 mg/dL (8.5-10.3) 05/07/22 05:09 Total Bilirubin 0.8 mg/dL (0.2-1.0) 05/04/22 23:42 AST 37 IU/L (10-42) 05/04/22 23:42 ALT 43 IU/L (10-60) 05/04/22 23:42 Alkaline Phosphatase 106 IU/L (42-121) 05/04/22 23:42 C-Reactive Protein 9.2 mg/dL (0-1.0) H 05/04/22 23:42 Total Protein 7.1 g/dL (6.7-8.2) 05/04/22 23:42 Albumin 3.6 g/dL (3.2-5.5) 05/04/22 23:42 Globulin 3.5 g/dL (2.1-4.2) 05/04/22 23:42 Albumin/Globulin Ratio 1.0 (1.0-2.2) 05/04/22 23:42 Lipase 30 U/L (22-51) 05/04/22 23:42 Nasal Adenovirus (PCR) NOT DETECTED 05/05/22 06:03 Nasal B. parapertussis DNA (PCR) NOT DETECTED 05/05/22 06:03 Nasal Coronavir 229E PCR NOT DETECTED 05/05/22 06:03 Nasal Coronavir HKU1 PCR NOT DETECTED 05/05/22 06:03 Nasal Coronavir NL63 PCR NOT DETECTED 05/05/22 06:03 Nasal Coronavir OC43 PCR NOT DETECTED 05/05/22 06:03 Nasal Enterovir/Rhinovir PCR NOT DETECTED 05/05/22 06:03 Nasal Influenza B PCR NOT DETECTED 05/05/22 06:03 Nasal Influenza A PCR NOT DETECTED 05/05/22 06:03 Nasal Parainfluen 1 PCR NOT DETECTED 05/05/22 06:03 Nasal Parainfluen 2 PCR NOT DETECTED 05/05/22 06:03 Nasal Parainfluen 3 PCR NOT DETECTED 05/05/22 06:03 Nasal Parainfluen 4 PCR NOT DETECTED 05/05/22 06:03 Nasal RSV (PCR) NOT DETECTED 05/05/22 06:03 Nasal B.pertussis DNA PCR NOT DETECTED 05/05/22 06:03 Nasal C.pneumoniae (PCR) NOT DETECTED 05/05/22 06:03 Kimani Human Metapneumo PCR NOT DETECTED 05/05/22 06:03 Nasal M.pneumoniae (PCR) NOT DETECTED 05/05/22 06:03 Nasal SARS-CoV-2 (PCR) NOT DETECTED 05/05/22 06:03 - Procedures Procedures: Procedures INCIS W REM OF FORIEGN BODY OR DEV FROM SKIN & SUBCUT TISSUE (06/05/13) INSERTION OF INFUSION DEV INTO R SUBCLAV VEIN, PERC APPROACH (05/27/20) THORAX SFT TISS XRAY NEC (06/05/13) VENOUS CATHETERIZATION NEC (06/05/13)
[2022-05-07] MEDS: SODIUM CHLORIDE 0.9% 1,000 ML IV SCH (20:06)
[2022-05-07] MEDS: FERROUS GLUCONATE 324 MG TABLET PO SCH (20:10)
[2022-05-07] MEDS: SOLIFENACIN SUCCINATE 10 MG TABLET PO SCH (21:10)
[2022-05-08] MEDS: HYDROcod/ACETAM 5/325 MG TABLET PO PRN (00:25)
[2022-05-08] MEDS: ZINC OXIDE 20% OINT 30 GM TUBE TOP PRN ×5 (00:26→23:54)
[2022-05-08] MEDS: SODIUM CHLORIDE FLUSH 0.9% 10 ML SYRINGE IVP SCH ×4 (01:23→23:43)
[2022-05-08] MEDS: ceFAZolin 2 GM/50 ML 2 GM/50 ML BAG IV SCH ×3 (03:56→21:03)
[2022-05-08] MEDS: HYDROcod/ACETAM 10 MG/325 MG TABLET PO PRN ×2 (05:08→14:03)
[2022-05-08 05:50] LABS: BASOPHILS # (AUTO) 0.1 10^3/uL (0.0-0.1); BASOPHILS % (AUTO) 0.8 %; EOSINOPHILS # (AUTO) 0.4 10^3/uL (0.0-0.7); EOSINOPHILS % (AUTO) 4.3 %; HCT - HEMATOCRIT 40.6 % (37.0-47.0); HGB - HEMOGLOBIN 12.9 g/dL (12.0-16.0); LYMPHOCYTES % (AUTO) 23.5 %; MEAN CORPUSCULAR HGB CONC 31.8 g/dL (32.0-36.0); MEAN CORPUSCULAR VOLUME 88.1 fL (81.0-99.0); MEAN PLATELET VOLUME 9.4 fL (7.9-10.8); MONOCYTES # (AUTO) 0.8 10^3/uL (0.0-1.0); MONOCYTES % (AUTO) 9.6 %; NEUTROPHILS # (AUTO) 5.1 10^3/uL (1.5-6.6); NEUTROPHILS % (AUTO) 59.3 %; PLT - PLATELET COUNT 234 10^3/uL (130-450); RED BLOOD COUNT 4.61 10^6/uL (4.20-5.40); RED CELL DISTRIBUTION WIDTH 14.6 % (12.0-15.0); WHITE BLOOD COUNT 8.6 x10^3/uL (4.8-10.8)
[2022-05-08 05:56] LABS: CALCIUM 8.9 mg/dL (8.5-10.3); CREATININE 1.1 mg/dL (0.4-1.0); POTASSIUM 3.6 mmol/L (3.5-5.0)
[2022-05-08] MEDS: LANSOPRAZOLE 15 MG CAPSULE PO SCH ×2 (06:35→16:43)
[2022-05-08] MEDS: METOPROLOL SUCCINATE 50 MG TABLET PO SCH (09:17)
[2022-05-08] MEDS: POTASSIUM CHLORIDE 20 MEQ TABLET PO SCH (09:17)
[2022-05-08] MEDS: FUROSEMIDE 40 MG TABLET PO SCH (09:17)
[2022-05-08] MEDS: ESCITALOPRAM 10 MG TABLET PO SCH (09:17)
[2022-05-08] MEDS: SPIRONOLACTONE 25 MG TABLET PO SCH (09:17)
[2022-05-08] MEDS: buPROPion XL 150 MG TABLET PO SCH (09:18)
[2022-05-08] MEDS: LOSARTAN 50 MG TABLET PO SCH (09:18)
[2022-05-08] MEDS ORDERED: FUROSEMIDE 20 MG TABLET PO ONE (10:45)
[2022-05-08] MEDS: LOPERAMIDE 2 MG CAPSULE PO PRN (14:03)
[2022-05-08] MEDS: hydrOXYzine PAMOATE 25 MG CAPSULE PO PRN (14:04)
--- NOTE | 2022-05-08 16:24 | PROVIDER PROGRESS NOTE ---
Assessment/Plan - Problem List (1) Osteomyelitis of toe of left foot Assessment/Plan: Left second toe became progressive worse over the past week. Failing outpatient oral antibx management, she has developed an area of the 2nd left toe that shows erosion of bone (foot XRays were read out as having a lucency in the bone). The etiology is likely osteomyelitis. Blood cx were not collected prior to abx given in ER, unfortunately Result of wound cx from a prior ER visit has grown Staph aureus (MSSA), and se nsitivities are back. Pharmacy has advised stopping Vanco and Cefepime and starting iv Cefazolin 2g iv q8h which was done 2 days ago. ESR has decreased since on iv antibx Plan: Continue iv Cefazolin Cont following WBC (which has been normal however, probabkly due to her lymphoma) and following ESR daily Pain meds as needed Ortho consult was ordered by Telemedicine night doctor for ortho input. I called Dr Wood on 05/07 (since no consult was done yet) and he said he is not available 05/07 or for the next 4 days. Therefore, I contacted ER provider Dr Irene, who saw her for her 2 prior recent ER visits, and he saw the progression. He evaluated her in her bed here on 05/07, and said the soft tissue swelling and redness were better, but the necrotic center looks the same. He advised wet to dry dressing changes b.i.d. for some debridement, and when the ESR and toe looks better, to consider changing to oral antibiotics (using Bactrim and Rifampin, which this Staph areus is sens to these), and DCh on those oral antibx, if no worse ESR or exam on the oral antibx. Then she would need an elective procedure done by Ortho as an outpt. We ordered PT and OT evals for planning DCh. Will also order foot elevation 2) Chronic diarrhea The patient normally has 2-3 BMs a day, today it is already 4 BMs. This is probably due to the new antibiotic. Plan: We will check for C. difficile. If negative will allow increased Imodium use 3) HTN We have resumed all her usual meds from reconciled med list 4) COPD No exacerbation currently. Plan: Continue with her usual medications, once the medication list is reconciled 5) Morbid obesity with BMI 40-49 As per Hx 6) Osteoarthritis Plan: We will continue pain meds and anti-inflammatory meds as 7) GERD Plan:Continue with her usual medications, once the medication list is reconciled 8) History of non-Hodgkin's lymphoma She was treated with Rituxan. Plan: Following CBC daily - Current Meds Current Meds: Current Medications Generic Name Dose Route Start Last Admin Trade Name Freq PRN Reason Stop Dose Admin Hydrocodone Bitart/Acetaminophen 1 tab 05/05/22 05:28 05/08/22 00:25 Hydrocod/Acetam 5/325 Mg Tablet PO 1 tab Q4HR PRN Administration Pain 5 to 7 Hydrocodone Bitart/Acetaminophen 1 tab 05/07/22 11:32 05/08/22 14:03 Hydrocod/Acetam 10 Mg/325 Mg Tablet PO 1 tab TID PRN Administration PAIN >8 Bupropion HCl 300 mg 05/06/22 09:00 05/08/22 09:18 Bupropion Xl 150 Mg Tablet PO 300 mg DAILY KARI Administration Escitalopram Oxalate 20 mg 05/06/22 09:00 05/08/22 09:17 Escitalopram 10 Mg Tablet PO 20 mg DAILY KARI Administration Ferrous Gluconate 324 mg 05/05/22 21:00 05/07/22 20:10 Ferrous Gluconate 324 Mg Tablet PO Not Given QPM KARI Hydroxyzine Pamoate 25 mg 05/06/22 15:06 05/08/22 14:04 Hydroxyzine Pamoate 25 Mg Capsule PO 25 mg Q6H PRN Administration Anxiety Cefazolin Sodium/Dextrose 2 gm in 50 mls @ 100 mls/hr 05/05/22 12:00 05/08/22 13:04 Ancef 2 Gm/50 Ml IV Infused Q8H KARI Infusion Sodium Chloride 1,000 mls @ 40 mls/hr 05/06/22 18:27 05/08/22 11:00 Normal Saline 0.9% IV 0 mls/hr .Q25H KARI Infusion TKO Lansoprazole 30 mg 05/05/22 16:00 05/08/22 06:35 Lansoprazole 15 Mg Capsule PO 30 mg BIDAC AKRI Administration Loperamide HCl 2 mg 05/05/22 21:28 05/08/22 14:03 Loperamide 2 Mg Capsule PO 2 mg Q6H PRN Administration Diarrhea Losartan Potassium 100 mg 05/06/22 09:00 05/08/22 09:18 Losartan 50 Mg Tablet PO 100 mg DAILY KARI Administration Metoprolol Succinate 200 mg 05/06/22 09:00 05/08/22 09:17 Metoprolol Succinate 50 Mg Tablet PO 200 mg DAILY KARI Administration Multi-Ingredient Ointment 1 applic 05/07/22 21:57 05/08/22 09:16 Zinc Oxide 20% Oint 30 Gm Tube TOP 1 applic PRN PRN Administration Skin Care Potassium Chloride 20 meq 05/06/22 08:00 05/08/22 09:17 Potassium Chloride 20 Meq Tablet PO 20 meq DAILYWM KARI Administration Sodium Chloride 10 ml 05/05/22 09:00 05/08/22 09:18 Sodium Chloride Flush 0.9% 10 Ml Syringe IVP Not Given 0100,0900,1700 KARI Solifenacin 10 mg 05/05/22 21:00 05/07/22 21:10 Solifenacin Succinate 10 Mg Tablet PO 10 mg QPM KARI Administration Spironolactone 25 mg 05/05/22 10:51 05/08/22 09:17 Spironolactone 25 Mg Tablet PO 25 mg DAILY KARI Administration - Lab Result Fish Bone Diagrams: 05/08/22 05:40 05/08/22 05:40 - Additional Planning My Orders: My Active Orders 05/07/22 18:10 Daily Dressing Change [RC] BID 05/07/22 21:57 Zinc Oxide 20% Oint [Zinc Oxide] 1 applic TOP PRN PRN 05/08/22 17:00 Lactobacillus Rhamnosus GG [Culturelle] 1 cap PO DAILY 05/09/22 05:00 BMP - BASIC METABOLIC PANEL [CHEM] DAILYLAB CBC - COMP BLD CT W/AUTO DIFF [HEME] DAILYLAB 05/09/22 09:00 Furosemide [Lasix] 20 mg PO DAILY Subjective - Subjective Patient Reports: Pain (Toe hurts more than yesterday) Objective Vital Signs: Vital Signs - 24 hr 05/08/22 05/08/22 05/08/22 00:00 07:50 09:20 Temperature 36.9 C 36.5 C Heart Rate [ 65 63 Brachial] Respiratory 20 18 Rate Blood Pressure 114/90 H [Right Brachial artery] Blood Pressure 125/50 L 107/56 L [Right Radial artery] O2 Saturation 93 92 05/08/22 16:00 Temperature 36.8 C Heart Rate [ 66 Brachial] Respiratory 22 Rate Blood Pressure [Right Brachial artery] Blood Pressure 101/55 L [Right Radial artery] O2 Saturation 91 L Oxygen O2 Source Room air I&O (Last 24 Hrs): Intake and Output Totals x24h 05/06/22 05/07/22 05/08/22 23:59 23:59 23:59 Intake Total 1710 2580 1236 Balance 1710 2580 1236 General: Alert, Oriented x3 HEENT: Mucous membr. moist/pink Neck: Supple, Other (Cannot evaluate JVP due to morbid obesity) Neuro: Alert, Non Focal Cardiovascular: No murmurs (Distant heart sounds due to morbid obesity) Respiratory: No respiratory distress Abdomen: Soft, Other (Obese with a very large pannus) Extremities: No clubbing, No edema, Other (L 2nd toe is again swollen, more red than yesterday, and again redness speread onto distal dorum of foot. Toe and nail are very tender. Dorsum of toe has open wound draining yellow liquid. Good DP pulse on L.) - Results Results: Laboratory Results WBC 8.6 x10^3/uL (4.8-10.8) 05/08/22 05:40 RBC 4.61 10^6/uL (4.20-5.40) 05/08/22 05:40 Hgb 12.9 g/dL (12.0-16.0) 05/08/22 05:40 Hct 40.6 % (37.0-47.0) 05/08/22 05:40 MCV 88.1 fL (81.0-99.0) 05/08/22 05:40 MCH 28.0 pg (27.0-31.0) 05/08/22 05:40 MCHC 31.8 g/dL (32.0-36.0) L 05/08/22 05:40 RDW 14.6 % (12.0-15.0) 05/08/22 05:40 Plt Count 234 10^3/uL (130-450) 05/08/22 05:40 MPV 9.4 fL (7.9-10.8) 05/08/22 05:40 Neut # (Auto) 5.1 10^3/uL (1.5-6.6) 05/08/22 05:40 Lymph # (Auto) 2.0 10^3/uL (1.5-3.5) 05/08/22 05:40 [place] # (Auto) 0.8 10^3/uL (0.0-1.0) 05/08/22 05:40 Eos # (Auto) 0.4 10^3/uL (0.0-0.7) 05/08/22 05:40 Baso # (Auto) 0.1 10^3/uL (0.0-0.1) 05/08/22 05:40 Absolute Nucleated RBC 0.00 x10^3/uL 05/08/22 05:40 Nucleated RBC % 0.0 /100WBC 05/08/22 05:40 ESR 25 mm/Hr (0-30) 05/08/22 05:40 Sodium 138 mmol/L (135-145) 05/08/22 05:40 Potassium 3.6 mmol/L (3.5-5.0) 05/08/22 05:40 Chloride 100 mmol/L (101-111) L 05/08/22 05:40 Carbon Dioxide 27 mmol/L (21-32) 05/08/22 05:40 Anion Gap 11.0 (6-13) 05/08/22 05:40 BUN 29 mg/dL (6-20) H 05/08/22 05:40 Creatinine 1.1 mg/dL (0.4-1.0) H 05/08/22 05:40 Estimated GFR (MDRD) 48 (>89) L 05/08/22 05:40 Glucose 99 mg/dL (70-100) 05/08/22 05:40 Calcium 8.9 mg/dL (8.5-10.3) 05/08/22 05:40 Total Bilirubin 0.8 mg/dL (0.2-1.0) 05/04/22 23:42 AST 37 IU/L (10-42) 05/04/22 23:42 ALT 43 IU/L (10-60) 05/04/22 23:42 Alkaline Phosphatase 106 IU/L (42-121) 05/04/22 23:42 C-Reactive Protein 9.2 mg/dL (0-1.0) H 05/04/22 23:42 Total Protein 7.1 g/dL (6.7-8.2) 05/04/22 23:42 Albumin 3.6 g/dL (3.2-5.5) 05/04/22 23:42 Globulin 3.5 g/dL (2.1-4.2) 05/04/22 23:42 Albumin/Globulin Ratio 1.0 (1.0-2.2) 05/04/22 23:42 Lipase 30 U/L (22-51) 05/04/22 23:42 Nasal Adenovirus (PCR) NOT DETECTED 05/05/22 06:03 Nasal B. parapertussis DNA (PCR) NOT DETECTED 05/05/22 06:03 Nasal Coronavir 229E PCR NOT DETECTED 05/05/22 06:03 Nasal Coronavir HKU1 PCR NOT DETECTED 05/05/22 06:03 Nasal Coronavir NL63 PCR NOT DETECTED 05/05/22 06:03 Nasal Coronavir OC43 PCR NOT DETECTED 05/05/22 06:03 Nasal Enterovir/Rhinovir PCR NOT DETECTED 05/05/22 06:03 Nasal Influenza B PCR NOT DETECTED 05/05/22 06:03 Nasal Influenza A PCR NOT DETECTED 05/05/22 06:03 Nasal Parainfluen 1 PCR NOT DETECTED 05/05/22 06:03 Nasal Parainfluen 2 PCR NOT DETECTED 05/05/22 06:03 Nasal Parainfluen 3 PCR NOT DETECTED 05/05/22 06:03 Nasal Parainfluen 4 PCR NOT DETECTED 05/05/22 06:03 Nasal RSV (PCR) NOT DETECTED 05/05/22 06:03 Nasal B.pertussis DNA PCR NOT DETECTED 05/05/22 06:03 Nasal C.pneumoniae (PCR) NOT DETECTED 05/05/22 06:03 [place] Human Metapneumo PCR NOT DETECTED 05/05/22 06:03 Nasal M.pneumoniae (PCR) NOT DETECTED 05/05/22 06:03 Nasal SARS-CoV-2 (PCR) NOT DETECTED 05/05/22 06:03 - Procedures Procedures: Procedures INCIS W REM OF FORIEGN BODY OR DEV FROM SKIN & SUBCUT TISSUE (06/05/13) INSERTION OF INFUSION DEV INTO R SUBCLAV VEIN, PERC APPROACH (05/27/20) THORAX SFT TISS XRAY NEC (06/05/13) VENOUS CATHETERIZATION NEC (06/05/13)
[2022-05-08] MEDS: LACTOBACILLUS RHAMNOSUS GG CAPSULE PO SCH (16:43)
[2022-05-08] MEDS ORDERED: LOPERAMIDE 2 MG CAPSULE PO PRN (18:09)
[2022-05-08] MEDS: FERROUS GLUCONATE 324 MG TABLET PO SCH (21:08)
[2022-05-08] MEDS: SOLIFENACIN SUCCINATE 10 MG TABLET PO SCH (21:08)
[2022-05-09] MEDS ORDERED: SODIUM CHLORIDE 0.9% 50 ML IV ONE (03:59)
[2022-05-09] MEDS ORDERED: ceFAZolin 1 GM VIAL ONE (04:06)
[2022-05-09] MEDS: ceFAZolin 2 GM/50 ML 2 GM/50 ML BAG IV SCH (04:14)
[2022-05-09] MEDS: LANSOPRAZOLE 15 MG CAPSULE PO SCH ×2 (05:22→17:02)
[2022-05-09 05:42] LABS: CALCIUM 9.3 mg/dL (8.5-10.3); CREATININE 0.9 mg/dL (0.4-1.0); POTASSIUM 4.1 mmol/L (3.5-5.0)
[2022-05-09 06:03] LABS: BASOPHILS # (AUTO) 0.1 10^3/uL (0.0-0.1); BASOPHILS % (AUTO) 0.9 %; EOSINOPHILS # (AUTO) 0.4 10^3/uL (0.0-0.7); EOSINOPHILS % (AUTO) 4.4 %; HCT - HEMATOCRIT 40.5 % (37.0-47.0); HGB - HEMOGLOBIN 12.6 g/dL (12.0-16.0); LYMPHOCYTES # (AUTO) 1.7 10^3/uL (1.5-3.5); LYMPHOCYTES % (AUTO) 20.1 %; MEAN CORPUSCULAR HEMOGLOBIN 28.1 pg (27.0-31.0); MEAN CORPUSCULAR HGB CONC 31.1 g/dL (32.0-36.0); MEAN CORPUSCULAR VOLUME 90.2 fL (81.0-99.0); MEAN PLATELET VOLUME 9.9 fL (7.9-10.8); MONOCYTES % (AUTO) 11.2 %; NEUTROPHILS # (AUTO) 5.3 10^3/uL (1.5-6.6); NEUTROPHILS % (AUTO) 61.1 %; PLT - PLATELET COUNT 237 10^3/uL (130-450); RED BLOOD COUNT 4.49 10^6/uL (4.20-5.40); RED CELL DISTRIBUTION WIDTH 14.7 % (12.0-15.0); WHITE BLOOD COUNT 8.7 x10^3/uL (4.8-10.8)
[2022-05-09] MEDS: METOPROLOL SUCCINATE 50 MG TABLET PO SCH (08:15)
[2022-05-09] MEDS: buPROPion XL 150 MG TABLET PO SCH (08:16)
[2022-05-09] MEDS: LOSARTAN 50 MG TABLET PO SCH (08:17)
[2022-05-09] MEDS: ESCITALOPRAM 10 MG TABLET PO SCH (08:17)
[2022-05-09] MEDS: SPIRONOLACTONE 25 MG TABLET PO SCH (08:17)
[2022-05-09] MEDS: FUROSEMIDE 40 MG TABLET PO SCH (08:18)
[2022-05-09] MEDS: LACTOBACILLUS RHAMNOSUS GG CAPSULE PO SCH (08:18)
[2022-05-09] MEDS: POTASSIUM CHLORIDE 20 MEQ TABLET PO SCH (08:19)
[2022-05-09] MEDS: SODIUM CHLORIDE FLUSH 0.9% 10 ML SYRINGE IVP SCH ×3 (08:23→23:27)
--- NOTE | 2022-05-09 11:50 | CONSULTATION NOTE ---
Referring Provider Name of Referring Provider:: Dr. Maritza Segura Consult Date: 05/09/22 Chief Complaint - Chief Complaint Chief Complaint: Left second toe: Ulcer, drainage, swelling, redness extending from toe to f History of Present Illness - History Obtained From Records Reviewed: Yes History obtained from: Patient - History of Present Illness HPI Comment/Other: This is a 77-year-old woman I was asked to see with regard to a problem with the second toe of her left foot which has developed over the past week. She has multiple comorbidities including COPD, morbid obesity, multiple surgeries including spine and total joint of the knee. She does admit to some abnormal sensation to her feet. She developed a very small sore over the dorsum of her left second toe within the past week. She apparently was seen by washer engineer. The sore increased in size and was associated with swelling and redness, some discharge of fluid and the redness progressed to her foot despite some oral antibiotics prior to being admitted to the hospital on 05/04/2022. She denies diabetes. She quit smoking in 1993. She denies any injury to the toe. Prior to the onset of the sore, she was wearing slippers, loosefitting and noted rubbing against the dorsum of the second toe with associated deformity of second toe. She is improving in the hospital over the past 5 days. She has been on intravenous antibiotics. She had a superficial culture that was positive for sensitive Staphylococcus. The redness, swelling and drainage have all improved to left second toe. She denies previous problems with her left foot. She has had hindfoot surgery in the past, tendo Achilles area. History - Past Medical History Cardiovascular: reports: Hypertension, Other Respiratory: reports: Sleep apnea Neuro: reports: None Endocrine/Autoimmune: reports: None GI: reports: GERD, Hiatal hernia ADVERTISING SPECIALIST: reports: None : reports: None, Incontinence HEENT: reports: None Psych: reports: Depression Musculoskeletal: reports: Osteoarthritis, Chronic back pain Derm: reports: None MRSA Hx?: Yes - Past Surgical History General: reports: Cholecystectomy, Other Ortho: reports: Other /ADVERTISING SPECIALIST: reports: section Cardiovascular: reports: Cardiac catheterization - Substance History Use: Uses substance without health or social issues: NONE - POLST Patient has POLST: No Meds/Allgy - Home Medications Home Medications: Ambulatory Orders Medication Instructions Recorded Confirmed Escitalopram Oxalate [Lexapro] 20 mg PO DAILY 11/13/12 05/04/22 Spironolactone [Aldactone] 25 mg PO DAILY 11/13/12 05/04/22 Mag Carb/Al Hydrox/Alginic AC 15 - 30 ml PO AC PRN 01/16/13 05/04/22 [Gaviscon Extra Strength Liquid] Lidocaine [Lidoderm] 1 patch TOP Q12H PRN 02/14/14 05/04/22 HYDROcodone/ACET 10/325 [[place] 10 1 tab PO TID PRN 10/31/14 05/04/22 mg/325 mg] Fexofenadine HCl [Marcella Allergy] 180 mg PO DAILY PRN 11/06/15 05/04/22 Furosemide [Lasix] 40 mg PO DAILY 04/28/17 05/04/22 Ketoconazole 1 applic TP BID PRN 05/25/17 05/04/22 Oxybutynin Chloride [Ditropan Xl] 10 mg PO QPM 05/25/17 05/04/22 Ferrous Gluconate 240 mg PO QPM 09/01/17 05/04/22 Bran/Gum/Fib/Ct/Psyl/Kelp/Pec 3,000 mg PO QPM PRN 09/11/18 05/04/22 [Fiber 6 Tablet] Bupropion HCl [Wellbutrin Xl] 300 mg PO DAILY 09/11/18 05/04/22 Potassium Chloride 20 meq PO DAILY 09/11/18 05/04/22 Amoxicillin 2,000 mg PO ONCE PRN 05/27/20 05/04/22 Lansoprazole [Prevacid] 30 mg PO BIDAC 05/27/20 05/04/22 Lidocaine Viscous 2% [Xylocaine 10 ml PO BID PRN 05/27/20 05/04/22 Viscous 2%] Lidocaine [Rectasmoothe] 1 applic TOP BID 05/27/20 05/04/22 Losartan Potassium [Cozaar] 100 mg PO DAILY 05/27/20 05/04/22 Metoprolol Succinate [Toprol Xl] 200 mg PO DAILY 05/27/20 05/04/22 Naproxen Sodium [Aleve] 220 mg PO BID PRN 05/27/20 05/04/22 Nitroglycerin [Nitrostat] 0.4 mg SL Q5MIN PRN 05/27/20 05/04/22 clindamycin HCL [Cleocin HCl] 300 mg PO QID #28 cap 05/02/22 05/04/22 rifAMPin [Rifampin] 300 mg PO BID #14 cap 05/02/22 05/04/22 Mag/Aluminum/Sod Bicarb/Alginc 2 - 3 tab PO DAILY 05/07/22 05/07/22 [Gaviscon 80-14.2 mg Tab Chew] Psyllium Husk [Psyllium Fiber] 2 - 3 cap PO DAILY PRN 05/07/22 05/07/22 hydrOXYzine pamoate [Hydroxyzine 1 cap PO TID PRN 05/07/22 05/07/22 Pamoate] - Allergies Allergies/Adverse Reactions: Allergies Allergy/AdvReac Type Severity Reaction Status Date / Time adhesive Allergy Rash Verified 05/04/22 22:25 glycerin Allergy Itching Verified 05/04/22 22:25 Exam - Vital Signs Reviewed Vital Signs: Yes Vital Signs: Vital Signs x48h Temp Pulse Resp BP Pulse Ox 05/09/22 07:33 36.7 C 70 20 127/52 L 94 - Physical Exam General Appearance: positive: No acute distress, Alert Peripheral Pulses: positive: 2+ Neurologic/Psychiatric: positive: Oriented x3, Motor nml, Sensation nml Comments/Other: The left second toe shows a hammertoe deformity, 3 mm ulcer dorsum of proximal interphalangeal joint with some necrotic extensor tendon. There is redness and swelling of the left second toe, no vascular compromise. Pulses intact, skin atrophy and loss of hair distribution. There was previous markings to suggest that cellulitis extended into the foot and perhaps even lower calf. Now the redness and swelling are limited to the toe and this has apparently improved as well. There is no active drainage from the ulcer. The tendon appears to be intact over the joint but there is some necrosis of tendon, partial, dorsum of proximal interphalangeal joint Conclusion and Plan - Lab Results Laboratory Results 05/09/22 05:58: WBC 8.7, RBC 4.49, Hgb 12.6, Hct 40.5, MCV 90.2, MCH 28.1, MCHC 31.1 L, RDW 14.7, Plt Count 237, MPV 9.9, Neut # (Auto) 5.3, Lymph # (Auto) 1.7, [place] # (Auto) 1.0, Eos # (Auto) 0.4, Baso # (Auto) 0.1, Absolute Nucleated RBC 0.00, Nucleated RBC % 0.0 05/09/22 05:04: Sodium 140, Potassium 4.1, Chloride 102, Carbon Dioxide 27, Anion Gap 11.0, BUN 28 H, Creatinine 0.9, Estimated GFR (MDRD) 61 L, Glucose 96, Calcium 9.3 05/08/22 20:05: Stl C. diff Tox B Gene NEGATIVE 05/08/22 05:40: ESR 25 05/08/22 05:40: Sodium 138, Potassium 3.6, Chloride 100 L, Carbon Dioxide 27, Anion Gap 11.0, BUN 29 H, Creatinine 1.1 H, Estimated GFR (MDRD) 48 L, Glucose 99, Calcium 8.9 05/08/22 05:40: WBC 8.6, RBC 4.61, Hgb 12.9, Hct 40.6, MCV 88.1, MCH 28.0, MCHC 31.8 L, RDW 14.6, Plt Count 234, MPV 9.4, Neut # (Auto) 5.1, Lymph # (Auto) 2.0, [place] # (Auto) 0.8, Eos # (Auto) 0.4, Baso # (Auto) 0.1, Absolute Nucleated RBC 0.00, Nucleated RBC % 0.0 - Diagnosis Diagnosis: Ulcer, infection left second toe associated with hammertoe deformity left second toe. She most likely has neuropathy to her feet, contributing to hammertoe deformities and decreased sensation/ulceration. The cellulitis appears to have been markedly improved with antibiotics. I will review the x- rays. The preliminary indication by radiology was suggestion of osteomyelitis. - Plan Plan: The plan for the left second toe deformity, neuropathy, secondary infection of soft tissues, possibly bone or joint as well to proximal inner phalangeal joint region. 1. Local wound care with sterile dressing such as a Band-Aid and topical ant ibiotic 2. Elevate left foot is much as possible 3. Avoid any pressure over the second toe with shoe wear, open toed shoe wear, if needed at home 4. I would recommend oral antibiotics, may need to continue for up to 6 weeks 5. I would like to see her next Wednesday for follow-up in my office. I cannot guarantee that amputation might not be necessary in the future, initial treatment should be for toe salvage. If infection resolves, consider correction of second toe deformity surgically.
[2022-05-09] MEDS ORDERED: levoFLOXacin 250 MG TABLET PO SCH (12:00)
--- NOTE | 2022-05-09 14:38 | PROVIDER PROGRESS NOTE ---
Subjective - Prog Note Date Prog Note Date: 05/09/22 Prog Note Time: 14:41 - Subjective Subjective: No fever, no increased pain. Difficult ambulation with that foot that has an infected toe. Denies chest pain, abdominal pain. Still having frequent stools. Current Medications - Current Medications Current Medications: Active Medications Acetaminophen (Acetaminophen 325 Mg Tablet) 650 mg PO Q4HR PRN PRN Reason: Pain 1 to 4, or Fever Hydrocodone Bitart/Acetaminophen (Hydrocod/Acetam 5/325 Mg Tablet) 1 tab PO Q4HR PRN PRN Reason: Pain 5 to 7 Last Admin: 05/08/22 00:25 Dose: 1 tab Hydrocodone Bitart/Acetaminophen (Hydrocod/Acetam 10 Mg/325 Mg Tablet) 1 tab PO TID PRN PRN Reason: PAIN >8 Last Admin: 05/08/22 14:03 Dose: 1 tab Amoxicillin/Clavulanate Potassium (Amox/Clav 875 Mg/125 Mg Tablet) 1 tab PO BID [facility] Bupropion HCl (Bupropion Xl 150 Mg Tablet) 300 mg PO DAILY [facility] Last Admin: 05/09/22 08:16 Dose: 300 mg Escitalopram Oxalate (Escitalopram 10 Mg Tablet) 20 mg PO DAILY [facility] Last Admin: 05/09/22 08:17 Dose: 20 mg Ferrous Gluconate (Ferrous Gluconate 324 Mg Tablet) 324 mg PO QPM [facility] Last Admin: 05/08/22 21:08 Dose: 324 mg Furosemide (Furosemide 40 Mg Tablet) 20 mg PO DAILY [facility] Last Admin: 05/09/22 08:18 Dose: 20 mg Hydroxyzine Pamoate (Hydroxyzine Pamoate 25 Mg Capsule) 25 mg PO Q6H PRN PRN Reason: Anxiety Last Admin: 05/08/22 14:04 Dose: 25 mg Ketoconazole (Ketoconazole 2% Cream 15 Gm Tube) 1 applic TOP BID PRN PRN Reason: RASH Lactobacillus Rhamnosus (Lactobacillus Rhamnosus Gg Capsule) 1 cap PO DAILY [facility] Last Admin: 05/09/22 08:18 Dose: 1 cap Lansoprazole (Lansoprazole 15 Mg Capsule) 30 mg PO BIDAC [facility] Last Admin: 05/09/22 05:22 Dose: 30 mg Lidocaine (Lidocaine Patch 5%) 1 patch TOP Q12H PRN PRN Reason: Analgesia Last Admin: 05/08/22 17:15 Dose: 1 patch Loperamide HCl (Loperamide 2 Mg Capsule) 2 mg PO Q4H PRN PRN Reason: Diarrhea Loratadine (Loratadine 10 Mg Tablet) 10 mg PO DAILY PRN PRN Reason: Allergy Symptoms Losartan Potassium (Losartan 50 Mg Tablet) 100 mg PO DAILY [facility] Last Admin: 05/09/22 08:17 Dose: 100 mg Metoprolol Succinate (Metoprolol Succinate 50 Mg Tablet) 200 mg PO DAILY [facility] Last Admin: 05/09/22 08:15 Dose: 200 mg Multi-Ingredient Mouthwash/Gargle (Magic Mouthwash (Nystatin) 120 Ml Bottle) 30 ml PO Q4H PRN PRN Reason: Mouth Sore Pain Multi-Ingredient Ointment (Zinc Oxide 20% Oint 30 Gm Tube) 1 applic TOP PRN PRN PRN Reason: Skin Care Last Admin: 05/08/22 23:54 Dose: 1 applic Naproxen (Naproxen 250 Mg Tablet) 250 mg PO BID PRN PRN Reason: PAIN Nitroglycerin (Nitroglycerin Sl 0.4 Mg Tablet) 0.4 mg SL Q5MIN PRN PRN Reason: Chest Pain Ondansetron HCl (Ondansetron 4 Mg/2 Ml Vial) 4 mg IVP Q6HR PRN PRN Reason: Nausea / Vomiting Potassium Chloride (Potassium Chloride 20 Meq Tablet) 20 meq PO DAILYWM [facility] Last Admin: 05/09/22 08:19 Dose: 20 meq Psyllium Hydrophilic Mucilloid (Psyllium Packet) 1 packet PO DAILY PRN PRN Reason: Constipation Sodium Chloride (Sodium Chloride Flush 0.9% 10 Ml Syringe) 10 ml IVP PRN PRN PRN Reason: NEEDED PER PROVIDER ORDERS Last Admin: 05/08/22 21:03 Dose: 10 ml Sodium Chloride (Sodium Chloride Flush 0.9% 10 Ml Syringe) 10 ml IVP 0100,0900,1700 [facility] Last Admin: 05/09/22 08:23 Dose: 10 ml Solifenacin (Solifenacin Succinate 10 Mg Tablet) 10 mg PO QPM [facility] Last Admin: 05/08/22 21:08 Dose: 10 mg Spironolactone (Spironolactone 25 Mg Tablet) 25 mg PO DAILY [facility] Last Admin: 05/09/22 08:17 Dose: 25 mg Escitalopram Oxalate [Lexapro] 20 mg PO DAILY 11/13/12 Spironolactone [Aldactone] 25 mg PO DAILY 11/13/12 Mag Carb/Al Hydrox/Alginic AC [Gaviscon Extra Strength Liquid] 15 - 30 ml PO AC PRN 01/16/13 Lidocaine [Lidoderm] 1 patch TOP Q12H PRN 02/14/14 HYDROcodone/ACET 10/325 [[place] 10 mg/325 mg] 1 tab PO TID PRN 10/31/14 Fexofenadine HCl [Marcella Allergy] 180 mg PO DAILY PRN 11/06/15 Furosemide [Lasix] 40 mg PO DAILY 04/28/17 Ketoconazole 1 applic TP BID PRN 05/25/17 Oxybutynin Chloride [Ditropan Xl] 10 mg PO QPM 05/25/17 Ferrous Gluconate 240 mg PO QPM 09/01/17 Bran/Gum/Fib/Ct/Psyl/Kelp/Pec [Fiber 6 Tablet] 3,000 mg PO QPM PRN 09/11/18 Bupropion HCl [Wellbutrin Xl] 300 mg PO DAILY 09/11/18 Potassium Chloride 20 meq PO DAILY 09/11/18 Amoxicillin 2,000 mg PO ONCE PRN 05/27/20 Lansoprazole [Prevacid] 30 mg PO BIDAC 05/27/20 Lidocaine Viscous 2% [Xylocaine Viscous 2%] 10 ml PO BID PRN 05/27/20 Lidocaine [Rectasmoothe] 1 applic TOP BID 05/27/20 Losartan Potassium [Cozaar] 100 mg PO DAILY 05/27/20 Metoprolol Succinate [Toprol Xl] 200 mg PO DAILY 05/27/20 Naproxen Sodium [Aleve] 220 mg PO BID PRN 05/27/20 Nitroglycerin [Nitrostat] 0.4 mg SL Q5MIN PRN 05/27/20 Mag/Aluminum/Sod Bicarb/Alginc [Gaviscon 80-14.2 mg Tab Chew] 2 - 3 tab PO DAILY 05/07/22 Psyllium Husk [Psyllium Fiber] 2 - 3 cap PO DAILY PRN 05/07/22 hydrOXYzine pamoate [Hydroxyzine Pamoate] 1 cap PO TID PRN 05/07/22 Objective - Vital Signs/Intake & Output Reviewed Vital Signs: Yes Vital Signs: Vital Signs x48h Temp Pulse Resp BP Pulse Ox 05/09/22 07:33 36.7 C 70 20 127/52 L 94 Intake & Output: Intake & Output 05/06/22 05/07/22 05/08/22 05/09/22 23:59 23:59 23:59 23:59 Intake Total 1710 0 1925 570 Balance 1710 1925 570 - Objective General Appearance: positive: Alert, Other (Short statured at 4 foot 9 inches, obese at 104 kg, very talkative) Eyes Bilateral: positive: PERRL, EOMI ENT: positive: No signs of dehydration Neck: positive: No JVD. negative: Stiff neck Respiratory: positive: No respiratory distress, Other (Rapid continuous speech. Absolutely no signs of respiratory distress with this) Cardiovascular: positive: Regular rate & rhythm Abdomen: positive: Non-tender, No organomegaly, Nml bowel sounds, No distention Skin: positive: Warm, Dry, Other (The top of the left foot has a demarcation where the cellulitis extended up to the instep almost to the ankle. It is almost completely resolved and the only redness you see now is at the top of the foot at the base of the MTP joint. Ulcer on the proximal MTP joint.) Extremities: positive: Full ROM, No pedal edema Neurologic/Psychiatric: positive: Oriented x3, CN's nml (2-12), Motor nml - Lab Results Fish Bones: 05/09/22 05:58 05/09/22 05:04 Other Labs: Lab Results x24hrs 05/09/22 05/09/22 05/08/22 Range/Units 05:58 05:04 20:05 WBC 8.7 (4.8-10.8) x10^3/uL RBC 4.49 (4.20-5.40) 10^6/uL Hgb 12.6 (12.0-16.0) g/dL Hct 40.5 (37.0-47.0) % MCV 90.2 (81.0-99.0) fL MCH 28.1 (27.0-31.0) pg MCHC 31.1 L (32.0-36.0) g/dL RDW 14.7 (12.0-15.0) % Plt Count 237 (130-450) 10^3/uL MPV 9.9 (7.9-10.8) fL Neut # (Auto) 5.3 (1.5-6.6) 10^3/uL Lymph # (Auto) 1.7 (1.5-3.5) 10^3/uL Cooper # (Auto) 1.0 (0.0-1.0) 10^3/uL Eos # (Auto) 0.4 (0.0-0.7) 10^3/uL Baso # (Auto) 0.1 (0.0-0.1) 10^3/uL Absolute Nucleated RBC 0.00 x10^3/uL Nucleated RBC % 0.0 /100WBC Sodium 140 (135-145) mmol/L Potassium 4.1 (3.5-5.0) mmol/L Chloride 102 (101-111) mmol/L Carbon Dioxide 27 (21-32) mmol/L Anion Gap 11.0 (6-13) BUN 28 H (6-20) mg/dL Creatinine 0.9 (0.4-1.0) mg/dL Estimated GFR (MDRD) 61 L (>89) Glucose 96 (70-100) mg/dL Calcium 9.3 (8.5-10.3) mg/dL Stl C. diff Tox B Gene NEGATIVE (NEGATIVE) ABX Reporting Has patient been on IV antibiotics over the past 48 hours?: Yes Assessment/Plan - Problem List (1) Osteomyelitis of toe of left foot Impression: Orthopedic consultation greatly appreciated. He is hesitant to fully commit to a diagnosis of osteomyelitis. Clinically he feels that we should be treating her more for cellulitis. He thinks that she has a neuropathy, and had erosion with blistering of the toe because of a hammertoe deformity and the erosion from the slipper. That resulted in infection that failed outpatient antibiotic therapy. Arterial Dopplers do not show any evidence of peripheral vascular disease. The MSSA culture is a superficial wound culture and probably not clinically relevant. She was started on vancomycin and cefepime. Pharmacy recommended de-escalating to Ancef. She has been afebrile and has had a normal white cell count throughout this entire stay. Sed rate has been 25 or so. PT order was mentioned in yesterday's note but not done so PT did not see the patient today. On exam has the patient has responded. I am seeing her for the first time but on examination you can see where the pen marked the instep of the foot almost to the ankle. Redness and heat and discoloration has abated to the point that it is only surrounding the MCP area of that second toe. Superficial ulceration is present. Some drainage is present. Orthopedic surgery recommend switching her over to oral antibiotics. He prefers Augmentin. Plan: If she remains afebrile and signs and symptoms of cellulitis do not recur on Augmentin, she will be discharged tomorrow. He would like to see her in the office next Wednesday. Today is Wednesday. The rest of ortho recommendations will be followed with regards to dressing changes, elevation of foot. He would also like to see the blood pressures associated with the arterial Dopplers. He would like SABI done 2) Chronic diarrhea The patient normally has 2-3 BMs a day. 2 bowel movements noted for May 08 per nursing. 4 bowel movements noted by nursing today. C. difficile negative. Plan: Florastor and Imodium 3) HTN We have resumed all her usual meds from reconciled med list. Last night she was 122/49. This morning she is 127/52 Plan: no change in meds. 4) COPD No exacerbation currently. Plan: Continue with her usual medications, once the medication list is reconciled 5) Morbid obesity with BMI 40-49 As per Hx 6) Osteoarthritis Plan: We will continue pain meds and anti-inflammatory meds as 7) GERD Plan:Continue with her usual medications, once the medication list is reconciled 8) History of non-Hodgkin's lymphoma She was treated with Rituxan. Plan: Following CBC daily
[2022-05-09] MEDS: MAGIC MOUTHWASH (NYSTATIN) 120 ML BOTTLE PO PRN (21:35)
[2022-05-09] MEDS: SOLIFENACIN SUCCINATE 10 MG TABLET PO SCH (21:37)
[2022-05-09] MEDS: BACITRACIN ZINC OINT 1 PACKET TOP SCH (21:37)
[2022-05-09] MEDS: AMOX/CLAV 875 MG/125 MG TABLET PO SCH (21:37)
[2022-05-09] MEDS: FERROUS GLUCONATE 324 MG TABLET PO SCH (21:39)
[2022-05-10] MEDS: HYDROcod/ACETAM 5/325 MG TABLET PO PRN (02:42)
[2022-05-10] MEDS: LANSOPRAZOLE 15 MG CAPSULE PO SCH (05:38)
[2022-05-10 07:37] VITALS: BP 114/62
[2022-05-10] MEDS: AMOX/CLAV 875 MG/125 MG TABLET PO SCH (08:12)
[2022-05-10] MEDS: POTASSIUM CHLORIDE 20 MEQ TABLET PO SCH (08:12)
[2022-05-10] MEDS: LACTOBACILLUS RHAMNOSUS GG CAPSULE PO SCH (08:12)
[2022-05-10] MEDS: buPROPion XL 150 MG TABLET PO SCH (08:12)
[2022-05-10] MEDS: BACITRACIN ZINC OINT 1 PACKET TOP SCH (08:13)
[2022-05-10] MEDS: LOSARTAN 50 MG TABLET PO SCH (08:13)
[2022-05-10] MEDS: METOPROLOL SUCCINATE 50 MG TABLET PO SCH (08:13)
[2022-05-10] MEDS: ESCITALOPRAM 10 MG TABLET PO SCH (08:13)
[2022-05-10] MEDS: FUROSEMIDE 40 MG TABLET PO SCH (08:13)
[2022-05-10] MEDS: SPIRONOLACTONE 25 MG TABLET PO SCH (08:13)
[2022-05-10] MEDS: MAGIC MOUTHWASH (NYSTATIN) 120 ML BOTTLE PO PRN (08:14)
[2022-05-10] MEDS ORDERED: GI COCKTAIL 120 ML BOTTLE PO SCH (09:00)
[2022-05-10] MEDS: SODIUM CHLORIDE FLUSH 0.9% 10 ML SYRINGE IVP SCH (10:22)
--- NOTE | 2022-05-10 10:43 | DISCHARGE SUMMARY ---
Discharge Summary Admit Date: 05/05/22 Discharge Date: 05/10/22 Discharging Provider: Maritza Segura MD Primary Care Provider: Jamey Shelton MD Code Status: Attempt Resuscitation Condition at Discharge: Fair Discharge Disposition: 01 Home, Self Care - DIAGNOSES Discharge Diagnoses with Status of Each Condition: 1. Cellulitis of left foot failed outpatient management 2. Osteomyelitis left second great toe 3. Chronic diarrhea 4. Hypertension 5. COPD without exacerbation 6. Morbid obesity 7. Osteoarthritis 8. GERD 9. History of non-Hodgkin's lymphoma 10. Chronic Right shoulder dislocation - HPI History of Present Illness: Ms Mary is a 77 yo F with hx COPD, morbid obesity, osteoarthritis, GERD. H istory of non-Hodgkin's lymphoma treated with Rituxan. Pt presents with c/o L second toe pain, redness, swelling. Was first noted by podiatry last week, rx abx. It got worse and she was seen in ER started Augmentin, following day the cx grew staph and she was changed to clindamycin and rifampin, also received dose of IV vancomycin. Now with worsening pain and swelling, XR suspicious for osteomyelitis. No prior hx foot/toe infections. Pt follows with podiatry for ingrown toe nails. No hx DM. - Past Medical History Cardiovascular: reports: Hypertension, Other Respiratory: reports: Sleep apnea Neuro: reports: None Endocrine/Autoimmune: reports: None GI: reports: GERD, Hiatal hernia AUDIOMETRIC TECHNICIAN: reports: None : reports: None, Incontinence HEENT: reports: None Psych: reports: Depression Musculoskeletal: reports: Osteoarthritis, Chronic back pain Derm: reports: None MRSA Hx?: Yes - Past Surgical History General: reports: Cholecystectomy, Other Ortho: reports: Other /AUDIOMETRIC TECHNICIAN: reports: section Cardiovascular: reports: Cardiac catheterization - CONSULTS | PROCEDURES Consultations: Orthopedic Surgery, Dr. Wood Procedures: Toe x-ray has oval lucency within the second middle phalanx that is new or increased in prominence compared to the prior study of May 01. Nonspecific findings but suspicious for bony erosion and osteomyelitis given clinical history. Orthopedic surgery reviewed these films and feels that he is not quite convinced that this is osteomyelitis right now. Duplex scan lower extremity, artery shows no hemodynamically significant stenosis. Noted monophasic flow in the dorsalis pedis. Shoulder x-ray of the right shoulder with a chronic anterior shoulder dislocation, glenoid fossa remodeling and flattening of the femoral head. No fracture. - HOSPITAL COURSE Hospital Course: The patient was placed on a variety of empiric antibiotic therapy. Initially with cefepime and vancomycin. Then she was changed to Ancef after culture of the top of the toe grew out MSSA. Clinically I do not know how pertinent a topical culture of a toe ulcer will help us. It could be said that it helped in that we knew that she did not have MRSA growing in this region. There was a delay in consultation from orthopedics since they were not on-call and not available. He finally was able to see the patient on hospital day #5. While he acknowledged the plain film readings of possible osteomyelitis, what he was seeing was mainly a toe ulcer that developed on a hammertoe from badly worn shoes. He felt that she had neuropathy that probably contributed to this. He felt that she could be discharged to the outpatient settings and most of her cellulitis had resolved. He recommended Augmentin. When I shared this with the patient she said that that was the antibiotic that she failed in the outpatient setting that brought her into the hospital. As such I am sending her home on Levaquin. Orthopedics recommends 6 weeks of antibiotic therapy with Levaquin. He will see her in the clinic office May 12. During her stay her other medical problems remain chronic and stable. Her arthritis, COPD, hypertension, GERD well controlled with her usual home meds. She was worried about being nonweightbearing and we reassured her that she can be weightbearing, but when she sits to elevate her feet. Dr. Wood did not recommend anything more complicated than washing her feet once a day. Do not soak the affected toe. Dry it is much as possible and I told her that I recommended a blow dryer. Cover it with bacitracin or Neosporin and then a simple Band-Aid. Keep it clean and changes multiple times a day. As such I had initially ordered home health with wound follow-up and with the simple instructions home health was not required. Throughout her stay she did not have a fever or an elevated white cell count. Sedimentation rate was 23 and 25 on the 2 days we checked it. As she was being discharged, she explained to us that her right shoulder is dislocated again. She tried to reposition herself in bed last night and one of the aides help her. As she held onto their hand and she pulled forward she felt her right shoulder "pop out again". We did a film and it appears to be a chronically dislocated right shoulder. The dislocation goes as far back as 2018. I spoke to the ER provider for his opinion, and Dr. Medrano said that it is well-known to the ER staff. Dr. Irene even try to reduce it over and hours length of time with her last ER visit and it was unsuccessful. Dr. Medrano states that other than possibly a shoulder sling, not much more can be done for this woman. She would need follow-up in the outpatient setting with orthopedic surgery if she wanted something done. She is discharged in stable condition with instructions to follow-up with orthopedics. Also to follow-up with her primary care provider in the next 2 weeks. She is a short statured, obese, charming the loquacious obese female who is in no acute distress. Alopecia. Lungs are clear. Regular rate and rhythm. Abdomen is obese, soft, nontender. The left foot second toe has an ulcer on the joint on the top of the toe. There is evidence of redness around the toe. It is swollen. She had had cellulitis on admission that extended over the instep close to the ankle. All of that redness is resolved except for mild redness at the base of the toe. She is able to get up out of bed and [facility]. She is able to use her right arm to feed herself, dress herself. She just cannot raise her right arm above her head. I described a sling and she says she is well aware of how to put on a sling and will use it temporarily to get over the acute pain. She may mention it to the orthopedic surgeon to see if there is anything he would like to do. Greater than 30 minutes was spent coordinating discharge. - ALLERGIES Allergies/Adverse Reactions: Allergies Allergy/AdvReac Type Severity Reaction Status Date / Time adhesive Allergy Rash Verified 05/04/22 22:25 glycerin Allergy Itching Verified 05/04/22 22:25 - MEDICATIONS Home Medications: Ambulatory Orders Medication Instructions Recorded Confirmed Escitalopram Oxalate [Lexapro] 20 mg PO DAILY 11/13/12 05/04/22 Spironolactone [Aldactone] 25 mg PO DAILY 11/13/12 05/04/22 Mag Carb/Al Hydrox/Alginic AC 15 - 30 ml PO AC PRN 01/16/13 05/04/22 [Gaviscon Extra Strength Liquid] Lidocaine [Lidoderm] 1 patch TOP Q12H PRN 02/14/14 05/04/22 HYDROcodone/ACET 10/325 [[place] 10 1 tab PO TID PRN 10/31/14 05/04/22 mg/325 mg] Fexofenadine HCl [Marcella Allergy] 180 mg PO DAILY PRN 11/06/15 05/04/22 Furosemide [Lasix] 40 mg PO DAILY 04/28/17 05/04/22 Ketoconazole 1 applic TP BID PRN 05/25/17 05/04/22 Oxybutynin Chloride [Ditropan Xl] 10 mg PO QPM 05/25/17 05/04/22 Ferrous Gluconate 240 mg PO QPM 09/01/17 05/04/22 Bran/Gum/Fib/Ct/Psyl/Kelp/Pec 3,000 mg PO QPM PRN 09/11/18 05/04/22 [Fiber 6 Tablet] Bupropion HCl [Wellbutrin Xl] 300 mg PO DAILY 09/11/18 05/04/22 Potassium Chloride 20 meq PO DAILY 09/11/18 05/04/22 Lansoprazole [Prevacid] 30 mg PO BIDAC 05/27/20 05/04/22 Lidocaine Viscous 2% [Xylocaine 10 ml PO BID PRN 05/27/20 05/04/22 Viscous 2%] Lidocaine [Rectasmoothe] 1 applic TOP BID 05/27/20 05/04/22 Losartan Potassium [Cozaar] 100 mg PO DAILY 05/27/20 05/04/22 Metoprolol Succinate [Toprol Xl] 200 mg PO DAILY 05/27/20 05/04/22 Naproxen Sodium [Aleve] 220 mg PO BID PRN 05/27/20 05/04/22 Nitroglycerin [Nitrostat] 0.4 mg SL Q5MIN PRN 05/27/20 05/04/22 Mag/Aluminum/Sod Bicarb/Alginc 2 - 3 tab PO DAILY 05/07/22 05/07/22 [Gaviscon 80-14.2 mg Tab Chew] Psyllium Husk [Psyllium Fiber] 2 - 3 cap PO DAILY PRN 05/07/22 05/07/22 hydrOXYzine pamoate [Hydroxyzine 1 cap PO TID PRN 05/07/22 05/07/22 Pamoate] Acetaminophen [Tylenol] 650 mg PO Q4HR PRN tab 05/10/22 Bacitracin Zinc Oint [Bacitracin] 1 packet TOP BID packet 05/10/22 Lactobacillus Rhamnosus GG 1 cap PO DAILY cap 05/10/22 [Culturelle] Loperamide [Imodium] 2 mg PO Q4H PRN cap 05/10/22 Zinc Oxide 20% Oint [Zinc Oxide] 1 applic TOP PRN PRN each 05/10/22 levoFLOXacin [Levaquin] 750 mg PO DAILY #90 tablet 05/10/22 - LABS Result Diagrams: 05/09/22 05:58 05/09/22 05:04
--- NOTE | 2022-05-10 10:54 | Discharge Plan ---
Discharge Plan Problem Reviewed?: Yes Disposition: Home, Self Care Condition: Fair Prescriptions: levoFLOXacin [Levaquin] 750 mg PO DAILY #90 tablet Diet: Diabetic Activity Restrictions: Activity as Tolerated (You can weight-bear on your affected foot. However, when you sit down, elevate your feet.) Shower Restrictions: Yes (do not soak infected toe in bathtub) Driving Restrictions: No Health Concerns: You have developed a toe ulcer on the top of your left second toe. You have a hammertoe deformity and peripheral neuropathy. Orthopedic surgery feels that you have developed an ulcer because of foot wear/slipper that rubbed on the knuckle of that toe and caused her to break down. You were followed by your match up worker and prescribed antibiotics. The infection became worse and was now all over the top of your left foot and you were seen in the emergency room and started on Augmentin. Culture was done and the culture grew out staph aureus so they changed you to clindamycin and rifampin antibiotics. In spite of this you had worsening pain and swelling in your foot. The x-ray was suspicious for osteomyelitis in the emergency room provider felt you were a candidate for admission because you failed outpatient therapy. We did do an ultrasound of the arteries of your legs to see if you had any artery blockages and none were found. Plan of Treatment: In the hospital, there was a delay in getting orthopedics to see you because they were out of town and not on-call. Orthopedist finally saw you in described the ulcer. He did not think you needed complicated wound care and thought you just needed to keep the toe clean and dry. Wash the foot daily but do not soak (you can take a shower). Dry it well and even use a blow dryer to dry the skin. Cover the ulcer with bacitracin or Neosporin and then a Band-Aid. In an effort to save your toe, if you have osteomyelitis, he recommends you taking antibiotics for 6 weeks. He did not know that you have already been tried on Augmentin and got worse. So I am recommending that you go home on Levaquin for 6 weeks. Take a probiotic while you are on antibiotics. Please see Dr. Wood, the orthopedic surgeon in his office on May 12. After you see the orthopedic surgeon, he may recommend he return to match up worker for further care The surgeon is recommending you get a test called arterial brachial indices. It is another test to measure blood flow in your legs. Your primary care provider, Dr. Shelton, can make a referral for that. Care Goals: To have complete healing of your left second toe so that you do not need amputation. Assessment: Patient is alert, oriented, making her own decisions and has already made an appointment with Dr. Wood and will follow up with his recommendations No Smoking: If you smoke, Please STOP! Call for help. Follow-up with: Jamey Shelton MD [Primary Care Provider] -
--- NOTE | 2022-05-10 11:45 | XRAY Report ---
PROCEDURE: Shoulder 2 View RT INDICATIONS: shoulder popped out and now in pain TECHNIQUE: 3 views of the shoulder were acquired. COMPARISON: 05/01/2022 FINDINGS: Bones: Humeral head is anteriorly dislocated in a subcoracoid position. There is remodeling of the gl enoid fossa as well. No evidence of fracture. Soft tissues: No suspicious soft tissue calcifications. IMPRESSION: 1. Anterior shoulder dislocation. 2. Glenoid fossa remodeling and flattening the humeral head. No fracture. Reviewed by: Lance Adorno MD on 05/10/2022 10:44 AM [facility] Approved by: Lance Adorno MD on 05/10/2022 10:44 AM [facility] Station ID: [id number]
== END 2022-05-10 13:05 | disposition home or self-care (01) | DRG 540 ==
LOC: ED 18:22 → MS2 05-06 17:58
PROVIDERS: ADMIT Student in an Organized Health Care Education/Training Program; ATTEND Specialist
DX: M86.9 Osteomyelitis, unspecified (principal); Z68.42 Body mass index [BMI] 45.0-49.9, adult; L03.032 Cellulitis of left toe; K52.9 Noninfective gastroenteritis and colitis, unspecified; I10 Essential (primary) hypertension; Z20.822 Contact with and (suspected) exposure to COVID-19; J44.9 Chronic obstructive pulmonary disease, unspecified; E66.01 Morbid (severe) obesity due to excess calories; M19.90 Unspecified osteoarthritis, unspecified site; K21.9 Gastro-esophageal reflux disease without esophagitis; M24.411 Recurrent dislocation, right shoulder; M20.42 Other hammer toe(s) (acquired), left foot; G62.9 Polyneuropathy, unspecified; G47.30 Sleep apnea, unspecified; F32.A Depression, unspecified; R32 Unspecified urinary incontinence; G89.29 Other chronic pain; M54.9 Dorsalgia, unspecified; B95.61 Methicillin susceptible Staphylococcus aureus infection as the cause of diseases classified elsewhere; Z71.3 Dietary counseling and surveillance; Z79.899 Other long term (current) drug therapy; Z85.72 Personal history of non-Hodgkin lymphomas; Z86.14 Personal history of Methicillin resistant Staphylococcus aureus infection; Z90.49 Acquired absence of other specified parts of digestive tract
CPT/HCPCS: 36415; 73030; 73660; 80048; 80053; 83690; 85025; 85651; 86140; 87493; 87633; 93926; 96365; 96366; 96367; 99284; 99285; A9270; J0690; J3370; J7040

== ENCOUNTER 2022-05-12 13:44 | Outpatient (CLI) | payer MEDICARE, BC ==
--- NOTE | 2022-05-12 11:08 | XRAY Report ---
PROCEDURE: Toe(s) LT INDICATIONS: LEFT TOE PAIN 2ND TECHNIQUE: Frontal view of the foot, 2 views of the second digit COMPARISON: 05/04/2022, 05/01/2022 FINDINGS: Similar oval lucency within the second digit middle phalanx. No definite acute fracture visualized. P ossible subluxation at the DIP joint on the lateral view versus projectional artifact. IMPRESSION: 1. Possible subluxation of the second digit DIP joint. 2. Similar lucency at the second digit middle phalanx, nonspecific. 3. No definite acute fracture visualized. 4. If symptoms persist, follow-up radiographs and/or CT or MRI may be helpful for further evaluation. Reviewed by: Lc Hinson MD on 05/12/2022 11:07 AM PST Approved by: Lc Hinson MD on 05/12/2022 11:07 AM PST Station ID: [id number]
== END 2022-05-12 13:45 | disposition home or self-care (01) ==
LOC: DI.WOS 13:44
PROVIDERS: ATTEND Physician Assistant Surgical
DX: M79.675 Pain in left toe(s) (principal)

== ENCOUNTER 2022-06-04 15:47 | Outpatient (CLI) | payer MEDICARE, BC ==
--- NOTE | 2022-06-04 20:17 | XRAY Report ---
PROCEDURE: Toe(s) LT INDICATIONS: LEFT 2ND TOE INFECTION TECHNIQUE: 3 views of the second toe(s) acquired. COMPARISON: 05/02/2022 FINDINGS: Bones: Compared to previous study, there is now significant erosion involving second middle phalanx a nd adjacent dorsal aspect of second distal phalangeal base with dorsal subluxation/dislocation at sec ond DIP joint. No other area of bony erosive changes are seen. No acute fracture is noted. No suspici ous bony lesions. Soft tissues: No suspicious soft tissue densities. IMPRESSION: Finding is concerning for osteomyelitis involving second DIP joint with dorsal dislocation/subluxatio n at second TMT joint and bony erosive changes as above. No acute fracture is seen. No other area of erosion. Reviewed by: Ashu Donovan MD on 06/04/2022 8:16 PM PST Approved by: Ashu Donovan MD on 06/04/2022 8:16 PM PST Station ID: [id number]
== END 2022-06-04 15:51 | disposition home or self-care (01) ==
LOC: DI.WOS 15:47
PROVIDERS: ATTEND Physician Assistant Surgical
DX: L97.529 Non-pressure chronic ulcer of other part of left foot with unspecified severity (principal); M85.872 Other specified disorders of bone density and structure, left ankle and foot

== ENCOUNTER 2022-09-18 00:08 | Outpatient (CLI) | payer MEDICARE, BC | END 2022-09-18 00:09 | disposition EMS.NT | LOC: EMS 00:08 | DX: Z03.89 Encounter for observation for other suspected diseases and conditions ruled out (principal) ==

== ENCOUNTER 2022-11-05 11:02 | Outpatient (CLI) | payer MEDICARE, BC | END 2022-11-05 11:03 | disposition EMS.NT | LOC: EMS 11:02 | DX: Z03.89 Encounter for observation for other suspected diseases and conditions ruled out (principal) ==

== ENCOUNTER 2023-01-22 09:53 | Outpatient (CLI) | payer MEDICARE, BC | END 2023-01-22 09:54 | disposition EMS.NT | LOC: EMS 09:53 | DX: Z03.89 Encounter for observation for other suspected diseases and conditions ruled out (principal) ==

== ENCOUNTER 2023-02-20 07:20 | Outpatient (CLI) | payer MEDICARE, BC | END 2023-02-20 07:21 | disposition EMS.NT | LOC: EMS 07:20 | DX: R53.1 Weakness (principal) ==

== ENCOUNTER 2023-05-01 05:27 | Outpatient (CLI) | payer MEDICARE, BC | END 2023-05-01 05:28 | disposition critical access hospital (66) | LOC: EMS 05:27 | DX: R07.9 Chest pain, unspecified (principal) | CPT/HCPCS: A0425; A0427 ==

== ENCOUNTER 2023-05-01 05:41 | Emergency (ER) | payer MEDICARE, BC ==
--- NOTE | 2023-05-01 05:40 | ED Physician Documentation ---
PD HPI CHEST PAIN - Stated complaint Stated Complaint: CP - History obtained from History obtained from: Patient, EMS - Additional information Additional information: BIBA. HPI from patient, EMS. Patient complains of left-sided chest pain, episodic for the past 3 days but became more intense and persistent since yesterday evening. Patient has taken 3 SLNTG over the course of the afternoon and evening without improvement. She also used a "GI cocktail" (per patient) by taking a dose of viscous lidocaine with maalox and a teaspoon of water (to make the mixture less viscous). Patient says she has had similar pain in the past attributed to food bolus impaction as well as esophageal spasm. She says she used to get Botox injections which worked well but has not had Botox injections recently. She also was recently switched from Prilosec to Protonix but has not yet started the Protonix. Review of Systems Cardiac: reports: Chest pain / pressure. denies: Palpitations Respiratory: reports: Dyspnea (chronic (no worse than baseline dyspnea)). denies: Cough GI: denies: Abdominal Pain, Nausea, Vomiting, Constipation PD PAST MEDICAL HISTORY - Past Medical History Past Medical History: Yes Cardiovascular: Congestive heart failure, Other (cardiomyopathy; known LBBB) GI: Hiatal hernia - Past Surgical History General: Cholecystectomy - Present Medications Home Medications: Ambulatory Orders Medication Instructions Recorded Confirmed Escitalopram Oxalate [Lexapro] 20 mg PO DAILY 11/13/12 05/04/22 Spironolactone [Aldactone] 25 mg PO DAILY 11/13/12 05/04/22 Mag Carb/Al Hydrox/Alginic AC 15 - 30 ml PO AC PRN 01/16/13 05/04/22 [Gaviscon Extra Strength Liquid] Lidocaine [Lidoderm] 1 patch TOP Q12H PRN 02/14/14 05/04/22 HYDROcodone/ACET 10/325 [[place] 10 1 tab PO TID PRN 10/31/14 05/04/22 mg/325 mg] Fexofenadine HCl [Marcella Allergy] 180 mg PO DAILY PRN 11/06/15 05/04/22 Furosemide [Lasix] 40 mg PO DAILY 04/28/17 05/04/22 Ketoconazole 1 applic TP BID PRN 05/25/17 05/04/22 oxyBUTYnin chloride [Ditropan Xl] 10 mg PO QPM 05/25/17 05/04/22 Ferrous Gluconate 240 mg PO QPM 09/01/17 05/04/22 Bran/Gum/Fib/Ct/Psyl/Kelp/Pec 3,000 mg PO QPM PRN 09/11/18 05/04/22 [Fiber 6 Tablet] Potassium Chloride 20 meq PO DAILY 09/11/18 05/04/22 buPROPion HCL [Wellbutrin Xl] 300 mg PO DAILY 09/11/18 05/04/22 Lansoprazole [Prevacid] 30 mg PO BIDAC 05/27/20 05/04/22 Lidocaine Viscous 2% [Xylocaine 10 ml PO BID PRN 05/27/20 05/04/22 Viscous 2%] Lidocaine [Rectasmoothe] 1 applic TOP BID 05/27/20 05/04/22 Losartan Potassium [Cozaar] 100 mg PO DAILY 05/27/20 05/04/22 Metoprolol Succinate [Toprol Xl] 200 mg PO DAILY 05/27/20 05/04/22 Naproxen Sodium [Aleve] 220 mg PO BID PRN 05/27/20 05/04/22 Nitroglycerin [Nitrostat] 0.4 mg SL Q5MIN PRN 05/27/20 05/04/22 Mag/Aluminum/Sod Bicarb/Alginc 2 - 3 tab PO DAILY 05/07/22 05/07/22 [Gaviscon 80-14.2 mg Tab Chew] Psyllium Husk [Psyllium Fiber] 2 - 3 cap PO DAILY PRN 05/07/22 05/07/22 hydrOXYzine pamoate [Hydroxyzine 1 cap PO TID PRN 05/07/22 05/07/22 Pamoate] Acetaminophen [Tylenol] 650 mg PO Q4HR PRN tab 05/10/22 Bacitracin Zinc Oint [Bacitracin] 1 packet TOP BID packet 05/10/22 Lactobacillus Rhamnosus GG 1 cap PO DAILY cap 05/10/22 [Culturelle] Loperamide [Imodium] 2 mg PO Q4H PRN cap 05/10/22 Zinc Oxide 20% Oint [Zinc Oxide] 1 applic TOP PRN PRN each 05/10/22 levoFLOXacin [Levaquin] 750 mg PO DAILY #90 tablet 05/10/22 - Allergies Allergies/Adverse Reactions: Allergies Allergy/AdvReac Type Severity Reaction Status Date / Time adhesive Allergy Rash Verified 05/01/23 05:54 glycerin Allergy Itching Verified 05/01/23 05:54 PD ED PE NORMAL - Vitals Vital signs reviewed: Yes - General General: Alert and oriented X 3, No acute distress, Well developed/nourished - Neck Neck: Supple, no meningeal sign - Cardiac Cardiac: RRR, No murmur - Respiratory Respiratory: No respiratory distress, Clear bilaterally - Abdomen Abdomen: Soft, Non tender - Neuro Neuro: Alert and oriented X 3 Results - Vitals Vitals: Vital Signs - 24 hr 05/01/23 05/01/23 05/01/23 05:49 05:59 06:17 Temperature 36.7 C 37 C 36.6 C Heart Rate 74 78 79 Respiratory 18 20 20 Rate Blood Pressure 118/103 H 135/76 H 100/87 H O2 Saturation 95 100 100 If not protocol 3 3 : Oxygen Flow, liters/minute Oxygen O2 Source Nasal cannula - EKG (time done) No standard instances EKG releavant findings:: EKG personally interpreted by author of this note. Relevant findings are: Rate: Rate (enter#) (71) Rhythm: NSR [place]: LAD Intervals: LBBB Other comments: Other comments (no Sgarbossa criteria) Compare to prior EKG: Unchanged from prior EKG (LBBB noted on previous EKG) - Labs Labs: Laboratory Tests 05/01/23 05/01/23 05/01/23 05:55 05:55 05:55 WBC 8.4 RBC 4.68 Hgb 13.2 Hct 41.8 MCV 89.3 MCH 28.2 MCHC 31.6 L RDW 13.8 Plt Count 201 MPV 9.9 Neut # (Auto) 5.8 Lymph # (Auto) 1.4 L [place] # (Auto) 0.8 Eos # (Auto) 0.3 Baso # (Auto) 0.1 Absolute Nucleated RBC 0.00 Nucleated RBC % 0.0 Sodium 138 Potassium 4.7 H Chloride 104 Carbon Dioxide 26 Anion Gap 8.0 BUN 51 H Creatinine 1.3 Estimated GFR (MDRD) 40 L Glucose 126 H Calcium 9.4 Total Bilirubin 0.3 AST 18 ALT 14 Alkaline Phosphatase 83 Troponin I High Sens 98.5 H* Total Protein 6.5 Albumin 3.7 Globulin 2.8 Albumin/Globulin Ratio 1.3 Lipase 23 - Rads (name of study) chest xray Relevant Findings:: Prelim report reviewed, See rad report PD Medical Decision Making - ED course Complexity details: reviewed results, re-evaluated patient, considered differential, d/w patient ED course: No concerning findings on CBC. ER abdominal panel notable for mild hyperkalemia (4.7), high BUN to creatinine ratio (51, 1.3). High-sensitivity troponin 98.5. The elevated troponin raises concern for NSTEMI, but could be due to patient's low GFR. Likely will benefit from a 2-hour repeat troponin. Care of patient is turned over to oncoming ED physician (Dr. Joseph).
[2023-05-01 06:11] LABS: BASOPHILS # (AUTO) 0.1 10^3/uL (0.0-0.1); BASOPHILS % (AUTO) 0.6 %; EOSINOPHILS # (AUTO) 0.3 10^3/uL (0.0-0.7); EOSINOPHILS % (AUTO) 3.8 %; HCT - HEMATOCRIT 41.8 % (37.0-47.0); HGB - HEMOGLOBIN 13.2 g/dL (12.0-16.0); LYMPHOCYTES # (AUTO) 1.4 10^3/uL (1.5-3.5); LYMPHOCYTES % (AUTO) 16.3 %; MEAN CORPUSCULAR HEMOGLOBIN 28.2 pg (27.0-31.0); MEAN CORPUSCULAR HGB CONC 31.6 g/dL (32.0-36.0); MEAN CORPUSCULAR VOLUME 89.3 fL (81.0-99.0); MEAN PLATELET VOLUME 9.9 fL (7.9-10.8); MONOCYTES # (AUTO) 0.8 10^3/uL (0.0-1.0); MONOCYTES % (AUTO) 9.7 %; NEUTROPHILS # (AUTO) 5.8 10^3/uL (1.5-6.6); NEUTROPHILS % (AUTO) 69.4 %; PLT - PLATELET COUNT 201 10^3/uL (130-450); RED BLOOD COUNT 4.68 10^6/uL (4.20-5.40); RED CELL DISTRIBUTION WIDTH 13.8 % (12.0-15.0); WHITE BLOOD COUNT 8.4 x10^3/uL (4.8-10.8)
[2023-05-01] MEDS ORDERED: PANTOPRAZOLE 40 MG VIAL IVP STA (06:14)
[2023-05-01] MEDS ORDERED: MORPHINE 2 MG/ML CARPUJECT IVP STA ×4 (06:41→22:23)
[2023-05-01 07:21] LABS: ALBUMIN 3.7 g/dL (3.2-5.5); ALBUMIN/GLOBULIN RATIO 1.3 (1.0-2.2); BILIRUBIN,TOTAL 0.3 mg/dL (0.2-1.0); CALCIUM 9.4 mg/dL (8.5-10.3); CREATININE 1.3 mg/dL (0.6-1.3); POTASSIUM 4.7 mmol/L (3.5-4.5); TOTAL PROTEIN 6.5 g/dL (6.4-8.9)
[2023-05-01] MEDS ORDERED: LIDOCAINE VISCOUS 2% 15 ML ORAL SYRINGE MM STA (07:30)
[2023-05-01] MEDS ORDERED: MAG HYDROX/AL HYDROX/SIMETH 30 ML UDC PO STA (07:30)
[2023-05-01] MEDS ORDERED: SUCRALFATE 1 GM/10 ML UDC PO STA ×2 (07:30→15:20)
--- NOTE | 2023-05-01 07:35 | ED Physician Documentation ---
ED Addendum - Addendum Addendum: 05/01/23 07:31 Chrissie Torres is a 78-year-old female with a history of esophagitis and idiopathic cardiomyopathy. She presents today with 3 days of chest pain substernal that is similar to what she has had previously with esophageal spasm. 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 She states that she will frequently be extra hungry and ate too fast resulting in food getting stuck. She indicates that prior to the onset of this pain she had a piece of chicken that was too big ate too quickly it got stuck and cause some pain. She has had pain since that time. Pain comes in spasms as well. She tried a GI cocktail at home but had Mylanta and lidocaine and she believes this was did not help that much she has tried 5 nitro as well without help. She was evaluated by Dr. Sutherland overnight she does have a left bundle branch block this is unchanged from prior no scar Bosa criteria. She did have elevation in her Trope and a repeat will be pending.Here in the emergency department the patient appears comfortable she is complaining of substernal chest pain and we are administering a second GI cocktail consisting of lidocaine Mylanta and Carafate. I did evaluate the patient for volume depletion IVC was 1.56 cm consistent with euvolemia. The patient did get some relief of her pain with a GI cocktail but we did find her troponin has elevated further and beyond the delta of 7 for acute change. I talked and contacted Dr. Gregory at [facility] he would like to see the patient in transfer and recommends placement of patient onto a heparin drip and aspirin. 05/01/23 12:53 05/01/23 16:06 05/01/23 16:07 The patient continues to have pain and was able to sleep after morphine 2mg IV. She awakes with further pain and a dose of carafate does not improve this. The patient still feels like this is her esophagus causing her pain and she feels she can get some relief with belching. She is given a second dose of morphine. At shift change her care is turned over to the oncoming emergency department In anticipation of [facility] being able to provide a bed in the near future. She is placed into a hospital bed while awaiting a transfer. 05/01/23 18:14
[2023-05-01] MEDS ORDERED: LIDOCAINE VISCOUS 2% 15 ML UDC MM STA ×2 (07:37→07:55)
--- NOTE | 2023-05-01 09:18 | XRAY Report ---
PROCEDURE: Chest 1 View X-Ray INDICATIONS: chest pain TECHNIQUE: One view of the chest was acquired. COMPARISON: 10/08/2020 FINDINGS: Surgical changes and devices: None. Lungs and pleura: Low lung volumes accentuate pulmonary interstitium and heart size. Mediastinum: Mediastinal contours appear normal. Heart size is heart size enlarged. Moderate vascul ar congestion noted to. Pleural spaces are clear. Bones and chest wall: No suspicious bony lesions. Overlying soft tissues appear unremarkable. IMPRESSION: Cardiomegaly and moderate vascular congestion Reviewed by: Lance Adorno MD on 05/01/2023 8:17 AM [facility] Approved by: Lance Adorno MD on 05/01/2023 8:17 AM [facility] Station ID: [id number]
[2023-05-01] MEDS ORDERED: ASPIRIN CHEW 81 MG TABLET PO STA (13:06)
[2023-05-01] MEDS ORDERED: HEPARIN 25000UNITS/500ML (D5W) 25,000 UNIT/500 ML BAG IV SCH (14:00)
[2023-05-01] MEDS ORDERED: NITROGLYCERIN 2% PASTE TOP STA (20:29)
--- NOTE | 2023-05-01 20:48 | ED Physician Documentation ---
ED Addendum - Addendum Addendum: 05/01/23 20:47 I took over care from Dr. Joseph, I repeated her troponin, found to be over 10,000. Recontacted [facility], spoke with Dr. Rivera, he recommends half an inch of Nitropaste. He will talk to the transfer center about seeing if he can expedite a bed for this patient. Patient still has 9 out of 10 chest pain. Repeat EKG confirms left bundle branch block. Does not appear to have any positive Sgarbossa criteria at this time. 05/01/23 22:22 Patient is still awaiting a bed at [facility], signed out to Dr. Triana awaiting further care.
[2023-05-01] MEDS ORDERED: ONDANSETRON 4 MG/2 ML VIAL IVP STA (22:24)
[2023-05-01] MEDS ORDERED: CLOPIDOGREL 300 MG TABLET PO STA (23:32)
--- NOTE | 2023-05-01 23:37 | ED Physician Documentation ---
ED Addendum - Addendum Addendum: 05/01/23 23:35 We received a call from [facility]. Their social insurance adviser that apparently talked with the transfer center and they are having also beds available at this time. They are excepting transfer of the patient. I talked with the hospitalist, Dr. Tanner Walls, who accepted the patient after verbal report given by me and answers to any questions he had. He did accept transfer. We added Plavix to the medication she had been given. Disposition: Transfer to [facility] in stable condition. Diagnoses: 1. Acute chest pain 2. Non-ST elevation RI 3. History of hypertension and congestive heart failure 4. Ongoing chest pain
[2023-05-02 00:46] VITALS: BP 113/87; O2SAT 93
== END 2023-05-02 01:25 | disposition short-term general hospital (02) ==
LOC: EDUNIT# → ED 05:41
DX: I21.4 Non-ST elevation (NSTEMI) myocardial infarction (principal); I44.7 Left bundle-branch block, unspecified; I50.9 Heart failure, unspecified
CPT/HCPCS: 36415; 71045; 80053; 83690; 84484; 85025; 85730; 93005; 96365; 96366; 96375; 96376; 99285; A9270

== ENCOUNTER 2023-05-02 01:33 | Outpatient (CLI) | payer MEDICARE, BC | END 2023-05-02 23:59 | disposition short-term general hospital (02) | LOC: EMS 01:33 | PROVIDERS: ATTEND Emergency Medicine | DX: I21.4 Non-ST elevation (NSTEMI) myocardial infarction (principal); I10 Essential (primary) hypertension; I50.9 Heart failure, unspecified | CPT/HCPCS: A0425; A0426 ==